=== PATIENT | male | born 1965 | race Hispanic/Latino ===

== ENCOUNTER 2017-10-24 04:34 | Emergency (ER) | payer MEDICAID ==
[2017-10-24 04:36] VITALS: BMI 25.0
[2017-10-24 04:44] VITALS: PULSE 80
--- NOTE | 2017-10-24 05:02 | C.PDOC ---
History Of Present Illness 51 year old male presents to the ER with a complaint of mid abdominal/umbilical pain and swelling to the lower extremities. Denies nausea or vomiting. Chief Complaint (Nursing): Abdominal Pain History Per: Patient History/Exam Limitations: no limitations Onset/Duration Of Symptoms: Hrs Current Symptoms Are (Timing): Still Present Location Of Pain/Discomfort: Other (Mid abdominal/umbilical) Radiation Of Pain To:: None Quality Of Discomfort: Unable To Describe Associated Symptoms: denies: Fever, Chills, Nausea, Vomiting Exacerbating Factors: None Alleviating Factors: None Recent travel outside of the [place]: No Past Medical History Reviewed: Historical Data, Nursing Documentation, Vital Signs Vital Signs: Last Vital Signs Temp 97.5 F L 10/24/17 04:41 Pulse 80 10/24/17 04:41 Resp 16 10/24/17 04:41 BP 136/98 H 10/24/17 04:41 Pulse Ox 96 10/24/17 05:07 - Medical History PMH: Asthma, COPD Surgical History: No Surg Hx - [facility] Procedures DETOXIFICATION SERVICES FOR SUBSTANCE ABUSE TREATMENT (03/10/16) Family History: States: Unknown Family Hx - Social History Hx Tobacco Use: Yes Hx Alcohol Use: No Hx Substance Use: Yes (cocaine,heroin) - Immunization History Hx Tetanus Toxoid Vaccination: No Hx Influenza Vaccination: No Hx Pneumococcal Vaccination: No Review Of Systems Constitutional: Negative for: Fever, Chills Gastrointestinal: Positive for: Abdominal Pain. Negative for: Nausea, Vomiting Musculoskeletal: Positive for: Other (Lower extremity swelling) Physical Exam - Physical Exam Appears: Non-toxic, No Acute Distress Skin: Normal Color, Warm, Dry Head: Atraumatic, Normacephalic Eye(s): bilateral: Normal Inspection Oral Mucosa: Moist Chest: Symmetrical, No Tenderness Cardiovascular: Rhythm Regular Respiratory: Normal Breath Sounds, No Rales, No Rhonchi, No Wheezing Gastrointestinal/Abdominal: Soft, Tenderness (Umbilical), No Guarding, No Rebound, Hernia (Umbilical, Reducible) Extremity: Pedal Edema (2+) Pulses: Left Dorsalis Pedis: Normal, Right Dorsalis Pedis: Normal Neurological/Psych: Oriented x3, Normal Speech ED Course And Treatment - Laboratory Results Result Diagrams: 10/24/17 05:15 10/24/17 05:15 O2 Sat by Pulse Oximetry: 96 (Room air) Pulse Ox Interpretation: Normal Progress Note: Blood work and urinalysis ordered. Toradol administered. Disposition Counseled Patient/Family Regarding: Diagnosis - Disposition Referrals: [facility] [Outside] Disposition: HOME/ ROUTINE Disposition Time: 05:33 Condition: STABLE Prescriptions: hydroCHLOROthiazide [Hydrodiuril] 25 mg PO DAILY #10 tab Instructions: Umbilical Hernia (ED) Forms: [facility] (Malaysian) - POA Present On Arrival: None - Clinical Impression Clinical Impression: Umbilical hernia without obstruction or gangrene - Scribe Statement The provider has reviewed the documentation as recorded by the Scribivory Stern All medical record entries made by the Kristaibivory were at my direction and personally dictated by me. I have reviewed the chart and agree that the record accurately reflects my personal performance of the history, physical exam, medical decision making, and the department course for this patient. I have also personally directed, reviewed, and agree with the discharge instructions and disposition.
[2017-10-24 05:18] LABS: BASO % 0.3 % (0.0-2.0); EOS # 0.1 K/uL (0.0-0.7); EOS % 1.7 % (0.0-4.0); HEMATOCRIT 41.6 % (35.0-51.0); LYMPH # 1.2 K/uL (1.0-4.3); LYMPH % 27.6 % (20.0-40.0); MEAN CELL VOLUME 83.4 fL (80.0-94.0); MEAN CORPUSCULAR HEMOGLOBIN 27.1 pg (27.0-31.0); MEAN CORPUSCULAR HGB CONC 32.5 g/dL (33.0-37.0); MEAN PLATELET VOLUME 7.3 fL (7.2-11.7); MONO # 0.3 K/uL (0.0-0.8); MONO % 7.9 % (0.0-10.0); NRBC % 0.1 % (0.0-2.0); WHITE BLOOD COUNT 4.3 K/uL (4.8-10.8)
[2017-10-24 05:31] LABS: ALB/GLOB RATIO 0.9 (1.0-2.1); ALKALINE PHOSPHATASE 97 U/L (38-126); ALT/SGPT 57 U/L (21-72); AST/SGOT 51 U/L (17-59); BILIRUBIN,TOTAL 1.4 mg/dL (0.2-1.3); BLOOD UREA NITROGEN 14 mg/dL (9-20); CALCIUM 8.1 mg/dl (8.6-10.4); CARBON DIOXIDE 31 mmol/L (22-30); CHLORIDE 99 mmol/L (98-107); GFR AFRICAN-AMERICAN > 60; GLUCOSE,RANDOM 103 mg/dL (75-110); SODIUM 136 mmol/L (132-148); TOTAL PROTEIN 7.7 g/dL (6.3-8.3)
[2017-10-24 05:33] LABS: RBC URINE 1 /hpf (0-3); URINE BILIRUBIN NEGATIVE (NEGATIVE); URINE BLOOD NEGATIVE (NEGATIVE); URINE COLOR Yellow (YELLOW); URINE GLUCOSE (UA) NORMAL (Normal); URINE KETONE NEGATIVE (NEGATIVE); URINE LEUKOCYTE ESTERASE NEG Leu/uL (Negative); URINE PROTEIN NEGATIVE (NEGATIVE); WBC URINE 1 /hpf (0-5)
[2017-10-24 05:45] VITALS: BP 134/82; RESP 18; TEMP 98.2; O2SAT 98
== END 2017-10-24 05:53 | disposition home or self-care (01) ==
LOC: C.ER 04:34
DX: K42.9 Umbilical hernia without obstruction or gangrene (principal); Z87.891 Personal history of nicotine dependence; J44.9 Chronic obstructive pulmonary disease, unspecified
CPT/HCPCS: 80053; 81001; 83690; 85025; 96374; 99284; J1885

== ENCOUNTER 2017-11-26 19:54 | Inpatient (IN) | payer MEDICAID ==
[2017-11-26 19:55] VITALS: BMI 25.0
[2017-11-26] MEDS ORDERED: Albuterol-Ipratrop 3 mg / 0.5 (3 ml) UD INH STA ×3 (20:00→21:34)
[2017-11-26] MEDS ORDERED: Albuterol-Ipratrop 3 mg / 0.5 (3 ml) UD ONE ×3 (20:06→22:19)
[2017-11-26] MEDS ORDERED: Sodium Chloride 0.9% 1,000 ML IV ONE (21:30)
--- NOTE | 2017-11-26 21:48 | C.PDOC ---
History Of Present Illness 52 year old male in mild respiratory distress with PMHx of asthma presents to the ED for evaluation of b/l lower extremity swelling/ spin and burning as well as sob / wheezing. Patient was recently treated for cellulitis twice; first with a course of cephalexin then on a visit to [facility] with a course of clindamycin. Patient reports today his asthma got worse and is also c/o SOB. Patient is a smoker for the past 30 years, he reports smoking 1 and a half pack a day. Patient denies fever, chills, nausea, vomit, diarrhea, abdominal pain, recent travel, sick contacts. Chief Complaint (Nursing): Shortness Of Breath History Per: Patient History/Exam Limitations: no limitations Onset/Duration Of Symptoms: Days Current Symptoms Are (Timing): Still Present Initiating Event: Upper Respiratory Illness Exacerbating Factor(s): Exertion Current Respiratory Medications: See Home Med List Severity: None Pain Scale Rating Of: 3 Associated Symptoms: Fever, Ankle/Leg Swelling Past Medical History Reviewed: Historical Data, Nursing Documentation, Vital Signs Vital Signs: Last Vital Signs Temp 98.2 F 11/27/17 23:12 Pulse 96 H 11/27/17 23:12 Resp 20 11/27/17 23:12 BP 131/69 11/27/17 23:12 Pulse Ox 96 11/27/17 23:12 - Medical History PMH: Asthma, COPD Denies: Diabetes, Hepatitis, HIV, HTN, Chronic Kidney Disease, Seizures, Sexually Transmitted Disease Surgical History: No Surg Hx - [facility] Procedures DETOXIFICATION SERVICES FOR SUBSTANCE ABUSE TREATMENT (03/10/16) Family History: States: Unknown Family Hx - Social History Hx Tobacco Use: Yes Hx Alcohol Use: No Hx Substance Use: Yes (cocaine,heroin) - Immunization History Hx Tetanus Toxoid Vaccination: No Hx Influenza Vaccination: No Hx Pneumococcal Vaccination: No Review Of Systems Constitutional: Negative for: Fever, Chills Eyes: Negative for: Pain ENT: Negative for: Ear Pain Cardiovascular: Negative for: Chest Pain, Palpitations Respiratory: Positive for: Shortness of Breath, Wheezing. Negative for: Cough Gastrointestinal: Negative for: Nausea, Vomiting, Abdominal Pain Genitourinary: Negative for: Dysuria, Hematuria Musculoskeletal: Positive for: Other (B/L lower extremity swelling) Skin: Negative for: Rash Neurological: Negative for: Weakness, Numbness Physical Exam - Physical Exam Appears: Non-toxic, In Acute Distress, Other (Mild respiratory distress) Skin: Normal Color, Warm, Dry Head: Atraumatic, Normacephalic Eye(s): bilateral: Normal Inspection Ear(s): Bilateral: Normal Nose: No Discharge, No Deformity Oral Mucosa: Moist Tongue: Normal Appearing Lips: Normal Appearing Teeth: Normal Dentition Throat: Normal, No Erythema, No Exudate Neck: Normal ROM, Supple Chest: Symmetrical Cardiovascular: Rhythm Regular, No Murmur Respiratory: No Rales, No Rhonchi, No Stridor, Wheezing Gastrointestinal/Abdominal: Soft, No Tenderness, No Guarding, No Rebound Extremity: Normal ROM, No Calf Tenderness, No Deformity, Swelling (B/L non pitting edema erythematous, warm ) Neurological/Psych: Oriented x3, Normal Speech, Normal Cognition ED Course And Treatment - Laboratory Results Result Diagrams: 11/27/17 07:42 11/27/17 07:42 ECG: Interpreted By Me, Viewed By Me ECG Rhythm: Sinus Rhythm ECG Interpretation: Normal Interpretation Of ECG: NSR 88 [place] 154, QRS 76, Qt 360, Qtc 435, no ischemic changes Rate From EC O2 Sat by Pulse Oximetry: 95 (on RA) Pulse Ox Interpretation: Normal - Radiology CXR: Interpreted by Me, Viewed By Me CXR Interpretation: Yes: Other (similar improvement 04/28/2016). No: No Acute Disease, Infiltrates, Cardiomegaly, Pnemothorax Medical Decision Making Medical Decision Making: Plan: * VBG * EKG * NSR 88 [place] 154, QRS 76, Qt 360, Qtc 435, no ischemic changes * Blood work * CXR * similar improvement 04/28/2016 * Duoneb 3 ml INH with improvement of wheezing * IV fluids * Nebulizer treatment * Peak flow * Influenza A B test * UA flu neg. elevtaed sed rate and cpr/. no elevation in wbc count. will cover with IV abx for recurrent cellulitis failed out patient oral therapy. Disposition Counseled Patient/Family Regarding: Diagnosis - Disposition Disposition: HOSPITALIZED Disposition Time: 01:39 Condition: STABLE - Clinical Impression Clinical Impression: Cellulitis, Asthma - Scribe Statement The provider has reviewed the documentation as recorded by the Scribe Og Oseguera All medical record entries made by the Scribe were at my direction and personally dictated by me. I have reviewed the chart and agree that the record accurately reflects my personal performance of the history, physical exam, medical decision making, and the department course for this patient. I have also personally directed, reviewed, and agree with the discharge instructions and disposition.
[2017-11-26 22:42] LABS: VENOUS BLOOD GAS BASE EXCESS 6.8 mmol/L (0.0-2.0); VENOUS BLOOD GAS PCO2 73 mmHg (40-60); VENOUS BLOOD GAS PO2 23 mm/Hg (30-55)
[2017-11-26 22:53] LABS: BASO % 1.3 % (0.0-2.0); EOS # 0.1 K/uL (0.0-0.7); EOS % 3.2 % (0.0-4.0); HEMOGLOBIN 13.2 g/dL (12.0-18.0); LYMPH # 0.8 K/uL (1.0-4.3); LYMPH % 24.6 % (20.0-40.0); MEAN CELL VOLUME 82.5 fL (80.0-94.0); MEAN CORPUSCULAR HEMOGLOBIN 27.5 pg (27.0-31.0); MEAN CORPUSCULAR HGB CONC 33.3 g/dL (33.0-37.0); MEAN PLATELET VOLUME 8.1 fL (7.2-11.7); MONO # 0.4 K/uL (0.0-0.8); MONO % 12.5 % (0.0-10.0); NEUT # 1.9 K/uL (1.8-7.0); NEUT % 58.4 % (50.0-75.0); NRBC % 0.1 % (0.0-2.0); RBC 4.8 Mil/uL (4.40-5.90); RED CELL DISTRIBUTION WIDTH 14.9 % (11.5-14.5); WHITE BLOOD COUNT 3.3 K/uL (4.8-10.8)
[2017-11-26 23:06] LABS: URINE BILIRUBIN SMALL (NEGATIVE); URINE BLOOD NEGATIVE (NEGATIVE); URINE CLARITY SL HAZY (Clear); URINE COLOR YELLOW (YELLOW); URINE GLUCOSE (UA) NEGATIVE (Normal); URINE LEUKOCYTE ESTERASE NEGATIVE Leu/uL (Negative); URINE NITRATE NEGATIVE (NEGATIVE); URINE PROTEIN TRACE mg/dL (NEGATIVE)
[2017-11-26 23:17] LABS: ALBUMIN 3.8 g/dL (3.5-5.0); ALT/SGPT 43 U/L (21-72); AST/SGOT 41 U/L (17-59); BLOOD UREA NITROGEN 10 mg/dL (9-20); CALCIUM 8.2 mg/dl (8.6-10.4); GFR AFRICAN-AMERICAN > 60; GFR NON-AFRICAN AMERICAN > 60
[2017-11-26 23:20] LABS: ALB/GLOB RATIO 0.8 (1.0-2.1)
[2017-11-27] MEDS: MethylPREDNISolone 40 mg Vial IV SCH ×4 (02:54→21:16)
--- NOTE | 2017-11-27 02:56 | CP.PCM.HP ---
<Ezio Pedraza - Last Filed: 11/27/17 05:24> History of Present Illness - History of Present Illness History of Present Illness: PGY-1 H&P for Dr. Sales CC: leg swelling This is a 52 year old male with PMHx Asthma who presents complaining of bilateral leg swelling. This has been ongoing for about 2 months now. He has seen his PMD Dr. Srinivasan who prescribed Keflex. Patient noted initial improvements but then it returned to how it started. Patient then sought treatment at [facility] where he was given Clindamycin and Lasix. Patient also noted improvement with this therapy before returning back to baseline. It is associated with sharp, stabbing pain around the malleoli and the dorsum of the feet bilaterally. Patient states that walking exacerbates his symptoms and elevating his legs provides some relief. Patient also complaining of shortness of breath, but states that he is chronically dyspneic at baseline. Patient uses his albuterol inhaler 4-5 times daily. 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 PMHx: Asthma PSHx: Denies Allergies: NKDA Social: Current smoker since age 14. Currently smokes 6 cigarettes daily but used to smoke 1-1.5 ppd. 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 Family Hx: Father with DM. Mother with Asthma PMD: Dr. Elmer Srinivasan Home meds: Albuterol inhaler, Singulair 10 mg daily, Spiriva 18 mcg daily Present on Admission - Present on Admission Any Indicators Present on Admission: No Review of Systems - Constitutional Constitutional: absent: Chills, Fever - EENT Eyes: absent: Change in Vision Ears: absent: Decreased Hearing Nose/Mouth/Throat: absent: Nasal Congestion - Cardiovascular Cardiovascular: absent: Chest Pain - Respiratory Respiratory: Dyspnea (chronic at baseline), Wheezing. absent: Cough - Gastrointestinal Gastrointestinal: absent: Abdominal Pain, Constipation, Diarrhea, Nausea, Vomiting - Genitourinary Genitourinary: absent: Dysuria - Musculoskeletal Musculoskeletal: absent: Back Pain - Integumentary Integumentary: Skin Pain, Swelling - Neurological Neurological: absent: Dizziness, Weakness - Psychiatric Psychiatric: Anxiety - Endocrine Endocrine: absent: Fatigue, Palpitations Past Patient History - Infectious Disease Hx of Infectious Diseases: None - Past Medical History & Family History Past Medical History?: Yes - Past Social History Smoking Status: Light Smoker < 10 Cigarettes Daily - CARDIAC Hx Hypertension: No - PULMONARY Hx Asthma: Yes Hx Chronic Obstructive Pulmonary Disease (COPD): Yes - NEUROLOGICAL Hx Seizures: No - HEENT Hx HEENT Problems: No Other/Comment: glasses,Farsighted - RENAL Hx Chronic Kidney Disease: No - ENDOCRINE/METABOLIC Hx Endocrine Disorders: No - HEMATOLOGICAL/ONCOLOGICAL Hx Human Immunodeficiency Virus (HIV): No - INTEGUMENTARY Hx Dermatological Problems: No - MUSCULOSKELETAL/RHEUMATOLOGICAL Hx Falls: No - GASTROINTESTINAL Hx Gastrointestinal Disorders: No Other/Comment: Umbilical Hernia - GENITOURINARY/GYNECOLOGICAL Hx Sexually Transmitted Disorders: No - PSYCHIATRIC Hx Substance Use: Yes (cocaine,heroin) - SURGICAL HISTORY Hx Surgeries: No - ANESTHESIA Hx Anesthesia: No Hx Anesthesia Reactions: No Hx Malignant Hyperthermia: No Meds Allergies/Adverse Reactions: Allergies Allergy/AdvReac Type Severity Reaction Status Date / Time No Known Allergies Allergy Verified 11/26/17 21:06 Physical Exam - Constitutional Appears: No Acute Distress - Head Exam Head Exam: ATRAUMATIC, NORMOCEPHALIC - Eye Exam Eye Exam: EOMI, PERRL - ENT Exam ENT Exam: Mucous Membranes Moist - Respiratory Exam Respiratory Exam: Wheezes (bilaterally). absent: Rales, Rhonchi Additional comments: Peak flow at bedside: 130 - Cardiovascular Exam Cardiovascular Exam: REGULAR RHYTHM, +S1, +S2. absent: Diastolic murmur, Systolic Murmur - GI/Abdominal Exam GI & Abdominal Exam: Hernia (reducible umbilical hernia), Normal Bowel Sounds, Soft. absent: Tenderness - Extremities Exam Extremities exam: Positive for: pedal edema (bilateral pitting). Negative for: tenderness Additional comments: Difficult to ascertain pedal pulses, but the lower extremities were warm to the touch bilaterally. It has the appearance of early stages of venous stasis dermatitis. - Neurological Exam Neurological exam: Alert, CN II-XII Intact, Oriented x3 - Psychiatric Exam Psychiatric exam: Normal Affect, Normal Mood - Skin Skin Exam: Dry, Intact, Warm Results - Vital Signs Recent Vital Signs: Last Vital Signs Temp 98 F 11/26/17 20:39 Pulse 102 H 11/26/17 20:39 Resp 24 11/26/17 20:39 BP 150/104 H 11/26/17 20:39 Pulse Ox 95 01/04/18 01:47 - Labs Result Diagrams: 11/26/17 22:47 11/26/17 22:47 Labs: Laboratory Results - last 24 hr 11/26/17 11/26/17 11/26/17 22:35 22:44 22:47 WBC 3.3 L RBC 4.80 Hgb 13.2 Hct 39.6 MCV 82.5 MCH 27.5 MCHC 33.3 RDW 14.9 H Plt Count 204 MPV 8.1 Neut % (Auto) 58.4 Lymph % (Auto) 24.6 [place] % (Auto) 12.5 H Eos % (Auto) 3.2 Baso % (Auto) 1.3 Neut # 1.9 Lymph # 0.8 L [place] # 0.4 Eos # 0.1 Baso # 0.0 ESR 33 H Puncture Site Vein pO2 23 L Az Test Na VBG pH 7.30 L VBG pCO2 73 H* VBG HCO3 28.5 VBG O2 Sat (Calc) 45.1 VBG Base Excess 6.8 H Crit Value Called To Ms. talbotrn/er Crit Value Called By Sabra,morteza Crit Value Read Back Y Blood Gas Notified Time 2240 Sodium Potassium Chloride Carbon Dioxide Anion Gap BUN Creatinine Est GFR ( Amer) Est GFR (Non-Af Amer) Random Glucose Calcium Total Bilirubin AST ALT Alkaline Phosphatase Troponin I C-React Prot High Sens Total Protein Albumin Globulin Albumin/Globulin Ratio Urine Color Urine Clarity Urine pH Ur Specific [place] Urine Protein Urine Glucose (UA) Urine Ketones Urine Blood Urine Nitrate Urine Bilirubin Urine Urobilinogen Ur Leukocyte Esterase Urine WBC (Auto) Urine RBC (Auto) Influenza Typ A,B (EIA) Negative for flu a/b 11/26/17 11/26/17 11/26/17 22:47 22:47 22:47 WBC RBC Hgb Hct MCV MCH MCHC RDW Plt Count MPV Neut % (Auto) Lymph % (Auto) [place] % (Auto) Eos % (Auto) Baso % (Auto) Neut # Lymph # [place] # Eos # Baso # ESR Puncture Site pO2 Az Test VBG pH VBG pCO2 VBG HCO3 VBG O2 Sat (Calc) VBG Base Excess Crit Value Called To Crit Value Called By Crit Value Read Back Blood Gas Notified Time Sodium 136 Potassium 4.3 Chloride 96 L Carbon Dioxide 33 H Anion Gap 12 BUN 10 Creatinine 0.8 Est GFR ( Amer) > 60 Est GFR (Non-Af Amer) > 60 Random Glucose 116 H Calcium 8.2 L Total Bilirubin 0.7 AST 41 ALT 43 Alkaline Phosphatase 93 Troponin I < 0.0120 C-React Prot High Sens 4.51 H Total Protein 8.4 H Albumin 3.8 Globulin 4.5 H Albumin/Globulin Ratio 0.8 L Urine Color Yellow Urine Clarity Sl hazy Urine pH 6.0 Ur Specific [place] 1.030 Urine Protein Trace Urine Glucose (UA) Negative Urine Ketones Negative Urine Blood Negative Urine Nitrate Negative Urine Bilirubin Small Urine Urobilinogen 2.0 Ur Leukocyte Esterase Negative Urine WBC (Auto) 4 Urine RBC (Auto) 2 Influenza Typ A,B (EIA) Assessment & Plan - Assessment and Plan (Free Text) Plan: Leg Swelling Failed outpatient treatment with Keflex, Clindamycin, and Lasix Likely venous stasis dermatitis Unlikely cellulitis but will rule it out ID consult vel Beck appreciated ED started Doxycycline 100 IV. We will continue it Q12 for now. f/u venous duplex to assess for valvular incompetence vs DVT History of poorly controlled Asthma with likely underlying COPD Patient is short of breath at baseline. Poorly controlled as evidenced by the repetitive use of Albuterol. Given long smoking history, there is likely some superimposed COPD. continued home Singulair 10 mg daily continued home Spiriva 18 mcg daily started Duonebs Q6 RJ started solumedrol 60 mg Q6 Prophylactic Measure Heparin 5000 units SC Q8 Protonix 40 mg PO daily Heart Healthy Diet Case DW Dr. Mónica Pedraza PGY-1 <Krishna Sales - Last Filed: 11/27/17 06:34> Results - Vital Signs Recent Vital Signs: Last Vital Signs Temp 98.3 F 11/27/17 03:53 Pulse 98 H 11/27/17 03:53 Resp 20 11/27/17 03:53 BP 146/97 H 11/27/17 04:00 Pulse Ox 96 11/27/17 03:53 - Labs Result Diagrams: 11/26/17 22:47 11/26/17 22:47 Labs: Laboratory Results - last 24 hr 11/26/17 11/26/17 11/26/17 22:35 22:44 22:47 WBC 3.3 L RBC 4.80 Hgb 13.2 Hct 39.6 MCV 82.5 MCH 27.5 MCHC 33.3 RDW 14.9 H Plt Count 204 MPV 8.1 Neut % (Auto) 58.4 Lymph % (Auto) 24.6 [place] % (Auto) 12.5 H Eos % (Auto) 3.2 Baso % (Auto) 1.3 Neut # 1.9 Lymph # 0.8 L [place] # 0.4 Eos # 0.1 Baso # 0.0 ESR 33 H Puncture Site Vein pO2 23 L Az Test Na VBG pH 7.30 L VBG pCO2 73 H* VBG HCO3 28.5 VBG O2 Sat (Calc) 45.1 VBG Base Excess 6.8 H Crit Value Called To Ms. talbotrn/er Crit Value Called By morteza Montaño Crit Value Read Back Y Blood Gas Notified Time 2240 Sodium Potassium Chloride Carbon Dioxide Anion Gap BUN Creatinine Est GFR ( Amer) Est GFR (Non-Af Amer) Random Glucose Calcium Total Bilirubin AST ALT Alkaline Phosphatase Troponin I C-React Prot High Sens Total Protein Albumin Globulin Albumin/Globulin Ratio Urine Color Urine Clarity Urine pH Ur Specific [place] Urine Protein Urine Glucose (UA) Urine Ketones Urine Blood Urine Nitrate Urine Bilirubin Urine Urobilinogen Ur Leukocyte Esterase Urine WBC (Auto) Urine RBC (Auto) Influenza Typ A,B (EIA) Negative for flu a/b 11/26/17 11/26/17 11/26/17 22:47 22:47 22:47 WBC RBC Hgb Hct MCV MCH MCHC RDW Plt Count MPV Neut % (Auto) Lymph % (Auto) [place] % (Auto) Eos % (Auto) Baso % (Auto) Neut # Lymph # [place] # Eos # Baso # ESR Puncture Site pO2 Az Test VBG pH VBG pCO2 VBG HCO3 VBG O2 Sat (Calc) VBG Base Excess Crit Value Called To Crit Value Called By Crit Value Read Back Blood Gas Notified Time Sodium 136 Potassium 4.3 Chloride 96 L Carbon Dioxide 33 H Anion Gap 12 BUN 10 Creatinine 0.8 Est GFR ( Amer) > 60 Est GFR (Non-Af Amer) > 60 Random Glucose 116 H Calcium 8.2 L Total Bilirubin 0.7 AST 41 ALT 43 Alkaline Phosphatase 93 Troponin I < 0.0120 C-React Prot High Sens 4.51 H Total Protein 8.4 H Albumin 3.8 Globulin 4.5 H Albumin/Globulin Ratio 0.8 L Urine Color Yellow Urine Clarity Sl hazy Urine pH 6.0 Ur Specific [place] 1.030 Urine Protein Trace Urine Glucose (UA) Negative Urine Ketones Negative Urine Blood Negative Urine Nitrate Negative Urine Bilirubin Small Urine Urobilinogen 2.0 Ur Leukocyte Esterase Negative Urine WBC (Auto) 4 Urine RBC (Auto) 2 Influenza Typ A,B (EIA) Assessment & Plan - Date & Time Date: 11/27/17 (I have seen and examined the patient. I agree with the findings and plan of care as documented by Dr. Pedraza. Patient with continued lower extremity cellulitis for which he has been treated for twice as an outpatient but has not entirely been successful. Doxycycline given in ED. Continue for now. Consult to ID. Evaluate for venous insufficiency. Also with COPD exacerbation. Recommend smoking cessation. Duonebs and solumedrol. Continue home meds. Monitor for acute changes.) Time: 06:30 Attending/Attestation - Attestation I have personally seen and examined this patient.: Yes I have fully participated in the care of the patient.: Yes I have reviewed all pertinent clinical information: Yes
[2017-11-27] MEDS: Albuterol-Ipratrop 3 mg / 0.5 (3 ml) UD INH SCH ×3 (07:46→19:38)
[2017-11-27] MEDS: Tiotropium 18 mcg Cap For Inhalation INH SCH (07:46)
[2017-11-27 07:48] LABS: BASO % 0.7 % (0.0-2.0); EOS % 0.4 % (0.0-4.0); HEMOGLOBIN 12.8 g/dL (12.0-18.0); LYMPH # 0.5 K/uL (1.0-4.3); LYMPH % 16.6 % (20.0-40.0); MEAN CELL VOLUME 82.7 fL (80.0-94.0); MEAN CORPUSCULAR HEMOGLOBIN 27.4 pg (27.0-31.0); MEAN CORPUSCULAR HGB CONC 33.2 g/dL (33.0-37.0); MONO # 0.1 K/uL (0.0-0.8); MONO % 2.7 % (0.0-10.0); NEUT # 2.2 K/uL (1.8-7.0); NEUT % 79.6 % (50.0-75.0); RBC 4.65 Mil/uL (4.40-5.90); RED CELL DISTRIBUTION WIDTH 14.6 % (11.5-14.5); WHITE BLOOD COUNT 2.8 K/uL (4.8-10.8)
[2017-11-27 08:38] LABS: ALB/GLOB RATIO 0.8 (1.0-2.1); ALBUMIN 3.5 g/dL (3.5-5.0); ALT/SGPT 38 U/L (21-72); AST/SGOT 39 U/L (17-59); BLOOD UREA NITROGEN 8 mg/dL (9-20); GFR AFRICAN-AMERICAN > 60; GFR NON-AFRICAN AMERICAN > 60
--- NOTE | 2017-11-27 08:52 | RAD ---
HISTORY: SOB COMPARISON: 05/18/2016 TECHNIQUE: Chest PA and lateral FINDINGS: LUNGS: No active pulmonary disease. PLEURA: No significant pleural effusion identified. No pneumothorax apparent. CARDIOVASCULAR: Normal. OSSEOUS STRUCTURES: No significant abnormalities. VISUALIZED UPPER ABDOMEN: Normal. OTHER FINDINGS: None. IMPRESSION: No active disease.
[2017-11-27 09:13] LABS: HEPATITIS B SURFACE AG NEGATIVE (NEGATIVE)
[2017-11-27] MEDS: Pantoprazole 40 mg EC Tab PO SCH (09:14)
[2017-11-27 09:19] LABS: HEPATITIS A IGM NEGATIVE (NEGATIVE); HEPATITIS B CORE AB Negative (NEGATIVE)
[2017-11-27] MEDS ORDERED: Fluticasone-Salmeterol 250-50mcg Diskus IH SCH (10:00)
[2017-11-27] MEDS: Piperacill/Tazo 3.375gm in Dex 3.375 GM/50 ML BAG IVPB SCH ×3 (11:17→22:50)
[2017-11-27] MEDS: Vancomycin 1 gm/NS 200 ml 1 GM/200 ML BAG IVPB SCH ×2 (11:18→22:51)
[2017-11-27 12:08] LABS: HEPATITIS C ANTIBODY REACTIVE (NEGATIVE)
--- NOTE | 2017-11-27 13:07 | VASCLAB ---
PROCEDURE: Lower Extremity Venous Duplex Exam. HISTORY: check for venous insufficiency PRIORS: None. TECHNIQUE: Bilateral common femoral, femoral, popliteal and posterior tibial, peroneal and great saphenous veins were evaluated. Flow was assessed with color Doppler, compressibility, assessment of phasic flow and augmentation response. Report prepared by Everett Allen, TONI, RVT FINDINGS: RIGHT: 1. Common Femoral Vein: 1.1. Compressibility - Fully compressible: Thrombus - None : Flow - Phasic: Augmentation -Normal: Reflux - None. 2. Femoral Vein: 2.1. Compressibility - Fully compressible: Thrombus - None : Flow - Phasic: Augmentation -Normal: Reflux - None. 3. Popliteal Vein: 3.1. Compressibility - Fully compressible: Thrombus - None : Flow - Phasic: Augmentation -Normal: Reflux - None. 4. Posterior Tibial Vein: 4.1. Compressibility - Fully compressible: Thrombus - None: Flow - Phasic: Augmentation -Normal: Reflux - None. 5. Peroneal Vein: 5.1. Compressibility - Fully compressible: Thrombus - None: Flow - Phasic: Augmentation -Normal: Reflux - None. 6. Great Saphenous Vein: 6.1. Compressibility - Fully compressible: Thrombus - None: Flow - Phasic: Augmentation - Normal: Reflux - None. LEFT: 1. Common Femoral Vein: 1.1. Compressibility - Fully compressible: Thrombus - None: Flow - Phasic: Augmentation -Normal: Reflux - None. 2. Femoral Vein: 2.1. Compressibility - Fully compressible: Thrombus - None: Flow - Phasic: Augmentation -Normal: Reflux - None. 3. Popliteal Vein: 3.1. Compressibility - Fully compressible: Thrombus - None : Flow - Phasic: Augmentation -Normal: Reflux - None. 4. Posterior Tibial Vein: 4.1. Compressibility - Fully compressible: Thrombus - None: Flow - Phasic: Augmentation -Normal: Reflux - None. 5. Peroneal Vein: 5.1. Compressibility - Fully compressible: Thrombus - None: Flow - Phasic: Augmentation -Normal: Reflux - None. 6. Great Saphenous Vein: 6.1. Compressibility - Fully compressible: Thrombus - None: Flow - Phasic: Augmentation - Normal: Reflux - None. OTHER FINDINGS: Right: None significant. Left: None significant. IMPRESSION: Right: No evidence of deep or superficial vein thrombosis of the right lower extremity. Normal valve function noted of the right side. Left: No evidence of deep or superficial vein thrombosis of the left lower extremity. Normal valve function noted of the left side.
--- NOTE | 2017-11-27 13:26 | CP.PCM.PN ---
<Karol Crenshaw - Last Filed: 11/27/17 13:23> Subjective - Date & Time of Evaluation Date of Evaluation: 11/27/17 Time of Evaluation: 07:00 - Subjective Subjective: PGY1-Medicine Note, Dr. Torres's Service Pt was S&E at bedside, no new complaints today. He states that he is not having LE pain, but that the swelling and redness has not changed as compared to yesterday. He states that his breathing has improved since last night's treatment. When patient walked to en suite bathroom and back, he felt short of breath but recovered by sitting quietly for a few minutes. He also states that he usually sleeps with 3 pillows at home and is requesting an addition pillow in the hospital. Of note, patient states that a few weeks ago, he accidentally hit his eye against a sink and has had visual changes since. He describes the visual changes as "blurry". 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 Patient denies chest pain, abdominal pain, nausea, vomiting, constipation, or diarrhea. Objective - Vital Signs/Intake and Output Vital Signs (last 24 hours): Temp Pulse Resp BP Pulse Ox 98.1 F 86 20 163/100 H 95 11/27/17 07:35 11/27/17 07:35 11/27/17 07:35 11/27/17 07:35 11/27/17 07:35 Intake and Output: 11/27/17 11/27/17 06:59 18:59 Intake Total 110 Balance 110 - Medications Medications: Current Medications Albuterol/Ipratropium (Duoneb 3 Mg/0.5 Mg (3 Ml) Ud) 3 ml INH RQ6 RJ Last Admin: 11/27/17 07:46 Dose: 3 ml Heparin Sodium (Porcine) (Heparin) 5,000 units SC Q8 RJ Last Admin: 11/27/17 05:26 Dose: 5,000 units Piperacillin Sod/Tazobactam Sod (Zosyn 3.375 Gm Iv Premix) 3.375 gm in 50 mls @ 200 mls/hr IVPB Q6H RJ Last Admin: 11/27/17 11:17 Dose: 200 mls/hr Vancomycin/Sodium Chloride (Vancomycin 1 Gm/Ns 200 Ml) 1 gm in 200 mls @ 133.333 mls/hr IVPB Q12H [facility] Stop: 12/02/17 11:01 Last Admin: 11/27/17 11:18 Dose: 133.333 mls/hr Lisinopril (Zestril) 5 mg PO DAILY [facility] Methylprednisolone (Solu-Medrol) 60 mg IV Q6H [facility] Last Admin: 11/27/17 08:46 Dose: 60 mg Montelukast Sodium (Singulair) 10 mg PO HS [facility] Pantoprazole Sodium (Protonix Ec Tab) 40 mg PO DAILY [facility] Last Admin: 11/27/17 09:14 Dose: 40 mg Tiotropium [place] (Spiriva) 18 mcg INH RQ24 [facility] Last Admin: 11/27/17 07:46 Dose: 18 mcg - Labs Labs: 11/27/17 07:42 11/27/17 07:42 - Constitutional Appears: Non-toxic, No Acute Distress - Head Exam Head Exam: ATRAUMATIC, NORMAL INSPECTION, NORMOCEPHALIC - Eye Exam Eye Exam: EOMI Additional comments: left eye corneal clouding on medial side - ENT Exam ENT Exam: Mucous Membranes Moist - Respiratory Exam Respiratory Exam: Clear to Ausculation Bilateral, NORMAL BREATHING PATTERN - Cardiovascular Exam Cardiovascular Exam: REGULAR RHYTHM, +S1, +S2 - GI/Abdominal Exam GI & Abdominal Exam: Soft, Normal Bowel Sounds. absent: Tenderness - Extremities Exam Extremities Exam: Pedal Edema Additional comments: b/l LE edema and erythema below the knee - Neurological Exam Neurological Exam: Alert, Awake, Oriented x3 - Psychiatric Exam Psychiatric exam: Normal Affect, Normal Mood - Skin Skin Exam: Erythema, Intact, Warm Assessment and Plan - Assessment and Plan (Free Text) Assessment: Leg Swelling venous stasis dermatitis v cellulitis Failed outpatient treatment with Keflex, Clindamycin, and Lasix ID consult Dr. Clark, help appreciated Doxycycline 100 IV given in ED ID started Vanco 1gm q12h and Zosyn 3.375gm q6h on 11/27/17 venous duplex negative for DVT and normal valve function b/l History of poorly controlled Asthma with likely underlying COPD Patient is short of breath at baseline. Poorly controlled as evidenced by the repetitive use of Albuterol. Given long smoking history, there is likely some superimposed COPD. continued home Singulair 10 mg daily continued home Spiriva 18 mcg daily started Koribs Q6 RJ started solumedrol 60 mg Q6 HTN started Lisinopril 5mg daily continue to monitor Hx IV drug abuse Hep C reactive f/u HIV Left Eye Injury patient to follow up with ophtho as an outpatient Prophylactic Measure Heparin 5000 units SC Q8 Protonix 40 mg PO daily Heart Healthy Diet <RockyLane vidalchristianomorales - Last Filed: 11/27/17 15:44> Objective - Vital Signs/Intake and Output Vital Signs (last 24 hours): Temp Pulse Resp BP Pulse Ox 98.1 F 86 20 125/78 95 11/27/17 07:35 11/27/17 07:35 11/27/17 07:35 11/27/17 13:49 11/27/17 07:35 Intake and Output: 11/27/17 11/27/17 06:59 18:59 Intake Total 110 250 Balance 110 250 - Medications Medications: Current Medications Albuterol/Ipratropium (Duoneb 3 Mg/0.5 Mg (3 Ml) Ud) 3 ml INH RQ6 [facility] Last Admin: 11/27/17 13:48 Dose: 3 ml Heparin Sodium (Porcine) (Heparin) 5,000 units SC Q8 [facility] Last Admin: 11/27/17 13:48 Dose: 5,000 units Piperacillin Sod/Tazobactam Sod (Zosyn 3.375 Gm Iv Premix) 3.375 gm in 50 mls @ 200 mls/hr IVPB Q6H [facility] Last Admin: 11/27/17 11:17 Dose: 200 mls/hr Vancomycin/Sodium Chloride (Vancomycin 1 Gm/Ns 200 Ml) 1 gm in 200 mls @ 133.333 mls/hr IVPB Q12H [facility] Stop: 12/02/17 11:01 Last Admin: 11/27/17 11:18 Dose: 133.333 mls/hr Lisinopril (Zestril) 5 mg PO DAILY [facility] Last Admin: 11/27/17 13:48 Dose: 5 mg Methylprednisolone (Solu-Medrol) 60 mg IV Q6H [facility] Last Admin: 11/27/17 13:46 Dose: 60 mg Montelukast Sodium (Singulair) 10 mg PO HS [facility] Pantoprazole Sodium (Protonix Ec Tab) 40 mg PO DAILY [facility] Last Admin: 11/27/17 09:14 Dose: 40 mg Tiotropium [place] (Spiriva) 18 mcg INH RQ24 [facility] Last Admin: 11/27/17 07:46 Dose: 18 mcg - Labs Labs: 11/27/17 07:42 11/27/17 07:42 Attending/Attestation - Attestation I have personally seen and examined this patient.: Yes I have fully participated in the care of the patient.: Yes I have reviewed all pertinent clinical information, including history, physical exam and plan: Yes Notes (Text): Patient was seen and examined Discussed with the resident I agree with the documentation of the assessment and the plan 11/27/17 15:44
[2017-11-27 21:44] LABS: BARBITURATES, UR NEGATIVE (NEGATIVE); BENZODIAZEPINES, UR NEGATIVE (NEGATIVE); PHENCYCLIDINE, UR NEGATIVE (NEGATIVE)
[2017-11-27 21:48] LABS: OPIATES, UR POSITIVE (NEGATIVE)
[2017-11-28] MEDS: Albuterol-Ipratrop 3 mg / 0.5 (3 ml) UD INH SCH ×4 (02:22→22:35)
[2017-11-28] MEDS: MethylPREDNISolone 40 mg Vial IV SCH ×4 (02:30→22:02)
[2017-11-28] MEDS: Piperacill/Tazo 3.375gm in Dex 3.375 GM/50 ML BAG IVPB SCH ×4 (05:17→22:04)
[2017-11-28 07:39] LABS: BASO % 0.1 % (0.0-2.0); HEMOGLOBIN 12.1 g/dL (12.0-18.0); LYMPH # 0.6 K/uL (1.0-4.3); LYMPH % 6.7 % (20.0-40.0); MEAN CELL VOLUME 82.4 fL (80.0-94.0); MEAN PLATELET VOLUME 8.7 fL (7.2-11.7); MONO # 0.1 K/uL (0.0-0.8); MONO % 1.8 % (0.0-10.0); NEUT # 7.7 K/uL (1.8-7.0); NEUT % 91.4 % (50.0-75.0); PLATELET COUNT 164 K/uL (130-400); RBC 4.33 Mil/uL (4.40-5.90); RED CELL DISTRIBUTION WIDTH 14.7 % (11.5-14.5)
[2017-11-28 07:49] LABS: WHITE BLOOD COUNT 8.4 K/uL (4.8-10.8)
[2017-11-28] MEDS: Tiotropium 18 mcg Cap For Inhalation INH SCH (08:29)
[2017-11-28 08:45] LABS: ALB/GLOB RATIO 0.9 (1.0-2.1); ALBUMIN 3.3 g/dL (3.5-5.0); ALT/SGPT 28 U/L (21-72); AST/SGOT 21 U/L (17-59); BLOOD UREA NITROGEN 11 mg/dL (9-20); CALCIUM 7.8 mg/dl (8.6-10.4); GFR AFRICAN-AMERICAN > 60; GFR NON-AFRICAN AMERICAN > 60; MAGNESIUM 1.8 mg/dL (1.6-2.3)
[2017-11-28 09:30] LABS: BANDS 6 % (0-2); LYMPHOCYTE 8 % (20-40); MONOCYTE 2 % (0-10); NEUTROPHIL 84 % (50-75); PLATELET ESTIMATE NORMAL (NORMAL); TOTAL CELLS COUNTED 100
[2017-11-28] MEDS: Pantoprazole 40 mg EC Tab PO SCH (09:31)
[2017-11-28] MEDS: Vancomycin 1 gm/NS 200 ml 1 GM/200 ML BAG IVPB SCH (10:55)
--- NOTE | 2017-11-28 12:17 | PCM.PSYCH ---
Initial Psychiatric Evaluation - Initial Psychiatric Evaluation Type of Admission: Voluntary Legal Status: Capacity Chief Complaint (in patient's own words): "Heroin" History of Present Illness and Precipitating Events: Consultation was requested for his opioid use This is a 52-year-old male, living with his mother, unemployed, . He is well-known to the auto service writer from his detox admissions. The patient admits to relapsing quickly and has been using heroin about 15 bags a day intravenously. He says his last use was before he came and he reported withdrawal symptoms - for which methadone 20 mg started last night after auto service writer spoke to the resident. He denies all other drug use but cocaine: "on and off" also iv Smokes 1/2 ppd Somewhat depressed but not suicidal, psychotic or manic Past psych history: No admissions and no suicide attempts. He use gabapentin and trazodone Medical history: Asthma and COPD, inguinal hernia Family psych history: Substance abuse Current Medications: Active Medications Generic Name Dose Route Start Last Admin Trade Name Freq PRN Reason Stop Dose Admin Albuterol/Ipratropium 3 ml 11/27/17 08:00 11/28/17 08:29 Duoneb 3 Mg/0.5 Mg (3 Ml) Ud INH 3 ml RQ6 RJ Administration Heparin Sodium (Porcine) 5,000 units 11/27/17 06:00 11/28/17 07:00 Heparin SC 5,000 units Q8 RJ Administration Piperacillin Sod/Tazobactam Sod 3.375 gm in 50 mls @ 200 mls/hr 11/27/17 11: 00 11/28/17 10:19 Zosyn 3.375 Gm Iv Premix IVPB 200 mls/hr Q6H RJ Administration Vancomycin/Sodium Chloride 1 gm in 200 mls @ 133.333 mls/hr 11/27/17 11:00 10:55 Vancomycin 1 Gm/Ns 200 Ml IVPB 12/02/17 11:01 133.333 mls/hr Q12H RJ Administration Lisinopril 5 mg 11/27/17 11:45 11/28/17 09:31 Zestril PO 5 mg DAILY RJ Administration Lorazepam 0.5 mg 11/27/17 18:29 Ativan IVP Q3H PRN Agitation Methadone HCl 0 mg 11/29/17 09:00 Methadone PO 12/02/17 08:59 Q24H RJ Taper Methylprednisolone 60 mg 11/27/17 02:30 11/28/17 08:35 Solu-Medrol IV 60 mg Q6H RJ Administration Montelukast Sodium 10 mg 11/27/17 22:00 11/27/17 21:16 Singulair PO 10 mg HS RJ Administration Pantoprazole Sodium 40 mg 11/27/17 10:00 11/28/17 09:31 Protonix Ec Tab PO 40 mg DAILY RJ Administration Tiotropium [place] 18 mcg 11/27/17 08:00 11/28/17 08:29 Spiriva INH 18 mcg RQ24 RJ Administration Trazodone HCl 100 mg 11/27/17 18:29 Desyrel PO HS PRN Insomnia Past Psychiatric History - Past Psychiatric History Previous Treatment History: Intensive Outpatient Pertinent Medical Hx (Current Medical&Sleep Prob, Allergies): Allergies Allergy/AdvReac Type Severity Reaction Status Date / Time No Known Allergies Allergy Verified 11/26/17 21:06 Albuterol Sulfate [Proventil Hfa] 0.09 mg IH Q4 PRN #1 ml 10/31/15 Fluticasone/Salmeterol 250/50 [Advair Diskus 250/50] 1 puff IH BID #1 puff 10/31 Review of Systems - Neurological Neurological: UNREMARKABLE - Psychiatric Psychiatric: Abnormal Sleep Pattern, Anxiety, Depression, Irritability. absent : Hallucinations, Homicidal Ideation, Suicidal Ideation Mental Status Examination - Personal Presentation Personal Presentation: Looks older than stated age - Affect Affect: Constricted - Motor Activity Motor Activity: Calm - Reliability in Providing Information Reliability in Providing Information: Good - Speech Speech: Organized - Mood Mood: Depressed, Anxious - Formal Thought Process Formal Thought Process: No Impairment - Cognitive Functions Orientation: Person, Place, Situation, Time Sensorium: Alert Attention/Concentration: Attentive Estimate of Intelligence: Average Judgement: Intact, as evidence by: Insight regarding need for hospitalization Memory: Recent intact, as evidence by: Ability to recall events of the day, Remote intact, as evidenced by: Abilit to recall sig. life events - Risk Risk: Diminished functioning - Strength & Assets Inventory Strength & Assets Inventory: Family support, Cooperative - Limitations Limitations: Other DSM 5 DX - DSM 5 DSM 5 Diagnosis: Opioid withdrawal Opioid use d/o - severe Cocaine use d/o - moderate Depressive d/o - unspecified - Recommended/Plan of Treatment Treatment Recommendations and Plan of Treatment: Methadone detox Support and psychoed Gabapentin for anxiety Trazodone for insomnia NE and CBt Refer to rehab If he is cleared today or tomorrow we can take him to detox (call on-call psych MD first) but not on Friday as he will have one dose left by then. 31 min
--- NOTE | 2017-11-28 14:21 | CP.PCM.PN ---
<Karol Crenshaw - Last Filed: 11/28/17 14:18> Subjective - Date & Time of Evaluation Date of Evaluation: 11/28/17 Time of Evaluation: 07:00 - Subjective Subjective: PGY1-Medicine Note, Dr. Torres's Service Pt was S&E at bedside, no new complaints today. He states that he is not having LE pain, and that the swelling and redness has decreased as compared to yesterday. He states that his breathing has improved. Patient says his withdrawal symptoms have decreased since the medication was given to him last night. Patient denies chest pain, abdominal pain, nausea, vomiting, constipation , or diarrhea. Objective - Vital Signs/Intake and Output Vital Signs (last 24 hours): Temp Pulse Resp BP Pulse Ox 97.8 F 96 H 20 151/91 H 98 11/28/17 07:25 11/28/17 07:25 11/28/17 07:25 11/28/17 07:25 11/28/17 07:25 Intake and Output: 11/28/17 11/28/17 06:59 18:59 Intake Total 720 Balance 720 - Medications Medications: Current Medications Albuterol/Ipratropium (Duoneb 3 Mg/0.5 Mg (3 Ml) Ud) 3 ml INH RQ6 [facility] Last Admin: 11/28/17 13:11 Dose: 3 ml Heparin Sodium (Porcine) (Heparin) 5,000 units SC Q8 [facility] Last Admin: 11/28/17 13:57 Dose: 5,000 units Piperacillin Sod/Tazobactam Sod (Zosyn 3.375 Gm Iv Premix) 3.375 gm in 50 mls @ 200 mls/hr IVPB Q6H [facility] Last Admin: 11/28/17 10:19 Dose: 200 mls/hr Vancomycin/Sodium Chloride (Vancomycin 1 Gm/Ns 200 Ml) 1 gm in 200 mls @ 133.333 mls/hr IVPB Q12H [facility] Stop: 12/02/17 11:01 Last Admin: 11/28/17 10:55 Dose: 133.333 mls/hr Lisinopril (Zestril) 5 mg PO DAILY [facility] Last Admin: 11/28/17 09:31 Dose: 5 mg Lorazepam (Ativan) 0.5 mg IVP Q3H PRN PRN Reason: Agitation Methadone HCl (Methadone) 10 mg PO Q24H [facility] PRN Reason: Taper Stop: 12/02/17 08:59 Methylprednisolone (Solu-Medrol) 60 mg IV Q6H [facility] Last Admin: 11/28/17 13:57 Dose: 60 mg Montelukast Sodium (Singulair) 10 mg PO HS [facility] Last Admin: 11/27/17 21:16 Dose: 10 mg Pantoprazole Sodium (Protonix Ec Tab) 40 mg PO DAILY [facility] Last Admin: 11/28/17 09:31 Dose: 40 mg Tiotropium [place] (Spiriva) 18 mcg INH RQ24 [facility] Last Admin: 11/28/17 08:29 Dose: 18 mcg Trazodone HCl (Desyrel) 100 mg PO HS PRN PRN Reason: Insomnia - Labs Labs: 11/28/17 07:23 11/28/17 07:23 - Constitutional Appears: Non-toxic, No Acute Distress - Head Exam Head Exam: ATRAUMATIC, NORMAL INSPECTION, NORMOCEPHALIC - Eye Exam Eye Exam: EOMI, Normal appearance - ENT Exam ENT Exam: Mucous Membranes Moist - Respiratory Exam Respiratory Exam: Clear to Ausculation Bilateral, NORMAL BREATHING PATTERN - Cardiovascular Exam Cardiovascular Exam: REGULAR RHYTHM, +S1, +S2 - GI/Abdominal Exam GI & Abdominal Exam: Soft, Normal Bowel Sounds. absent: Tenderness - Extremities Exam Extremities Exam: Pedal Edema. absent: Tenderness Additional comments: B/L LE erythema decreasing, from below the knee to the ankle B/L LE edema - Neurological Exam Neurological Exam: Alert, Awake, Oriented x3 - Psychiatric Exam Psychiatric exam: Normal Affect, Normal Mood - Skin Skin Exam: Erythema, Intact, Warm Assessment and Plan - Assessment and Plan (Free Text) Assessment: Leg Swelling venous stasis dermatitis v cellulitis Failed outpatient treatment with Keflex, Clindamycin, and Lasix ID consult Dr. Clark, help appreciated Doxycycline 100 IV given in ED ID started Vanco 1gm q12h and Zosyn 3.375gm q6h on 11/27/17 venous duplex negative for DVT and normal valve function b/l History of poorly controlled Asthma with likely underlying COPD Patient is short of breath at baseline. Poorly controlled as evidenced by the repetitive use of Albuterol. Given long smoking history, there is likely some superimposed COPD. continued home Singulair 10 mg daily continued home Spiriva 18 mcg daily started Koribs Q6 RJ started solumedrol 60 mg Q6 Heroin Withdrawal Psych, Dr. Dasilva consulted, help appreciated Methadone taper Trazodone 100mg po HS prn Lorazepam .5mg q3h prn HTN Lisinopril 5mg daily continue to monitor Hx IV drug abuse Hep C reactive- known to patient f/u with GI as an outpatient HIV negative Left Eye Injury patient to follow up with ophtho as an outpatient Prophylactic Measure Heparin 5000 units SC Q8 Protonix 40 mg PO daily Heart Healthy Diet <Eliu Torres - Last Filed: 11/28/17 19:34> Objective - Vital Signs/Intake and Output Vital Signs (last 24 hours): Temp Pulse Resp BP Pulse Ox 97.8 F 96 H 20 151/91 H 98 11/28/17 07:25 11/28/17 07:25 11/28/17 07:25 11/28/17 07:25 11/28/17 07:25 Intake and Output: 11/28/17 11/29/17 18:59 06:59 Intake Total 850 Balance 850 - Medications Medications: Current Medications Albuterol/Ipratropium (Duoneb 3 Mg/0.5 Mg (3 Ml) Ud) 3 ml INH RQ6 [facility] Last Admin: 11/28/17 13:11 Dose: 3 ml Heparin Sodium (Porcine) (Heparin) 5,000 units SC Q8 [facility] Last Admin: 11/28/17 13:57 Dose: 5,000 units Piperacillin Sod/Tazobactam Sod (Zosyn 3.375 Gm Iv Premix) 3.375 gm in 50 mls @ 200 mls/hr IVPB Q6H [facility] Last Admin: 11/28/17 17:43 Dose: 200 mls/hr Vancomycin HCl 1,250 mg/ (Sodium Chloride) 250 mls @ 125 mls/hr IVPB Q12H [facility] Last Admin: 11/28/17 17:43 Dose: 125 mls/hr Lisinopril (Zestril) 5 mg PO DAILY [facility] Last Admin: 11/28/17 09:31 Dose: 5 mg Lorazepam (Ativan) 0.5 mg IVP Q3H PRN PRN Reason: Agitation Methadone HCl (Methadone) 10 mg PO Q24H [facility] PRN Reason: Taper Stop: 12/02/17 08:59 Methylprednisolone (Solu-Medrol) 60 mg IV Q6H [facility] Last Admin: 11/28/17 13:57 Dose: 60 mg Montelukast Sodium (Singulair) 10 mg PO HS [facility] Last Admin: 11/27/17 21:16 Dose: 10 mg Pantoprazole Sodium (Protonix Ec Tab) 40 mg PO DAILY [facility] Last Admin: 11/28/17 09:31 Dose: 40 mg Tiotropium [place] (Spiriva) 18 mcg INH RQ24 [facility] Last Admin: 11/28/17 08:29 Dose: 18 mcg Trazodone HCl (Desyrel) 100 mg PO HS PRN PRN Reason: Insomnia - Labs Labs: 11/28/17 07:23 11/28/17 07:23 Attending/Attestation - Attestation I have personally seen and examined this patient.: Yes I have fully participated in the care of the patient.: Yes I have reviewed all pertinent clinical information, including history, physical exam and plan: Yes
--- NOTE | 2017-11-28 17:51 | CP.PCM.CON ---
History of Present Illness - History of Present Illness History of Present Illness: dictated Past Patient History - Infectious Disease Hx of Infectious Diseases: None - Past Medical History & Family History Past Medical History?: Yes - Past Social History Smoking Status: Light Smoker < 10 Cigarettes Daily - CARDIAC Hx Hypertension: No - PULMONARY Hx Asthma: Yes Hx Chronic Obstructive Pulmonary Disease (COPD): Yes - NEUROLOGICAL Hx Seizures: No - HEENT Hx HEENT Problems: No Other/Comment: glasses,Farsighted - RENAL Hx Chronic Kidney Disease: No - ENDOCRINE/METABOLIC Hx Endocrine Disorders: No - HEMATOLOGICAL/ONCOLOGICAL Hx Human Immunodeficiency Virus (HIV): No - INTEGUMENTARY Hx Dermatological Problems: No - MUSCULOSKELETAL/RHEUMATOLOGICAL Hx Falls: No - GASTROINTESTINAL Hx Gastrointestinal Disorders: No Other/Comment: Umbilical Hernia - GENITOURINARY/GYNECOLOGICAL Hx Sexually Transmitted Disorders: No - PSYCHIATRIC Hx Substance Use: Yes (cocaine,heroin) - SURGICAL HISTORY Hx Surgeries: No - ANESTHESIA Hx Anesthesia: No Hx Anesthesia Reactions: No Hx Malignant Hyperthermia: No Meds Allergies/Adverse Reactions: Allergies Allergy/AdvReac Type Severity Reaction Status Date / Time No Known Allergies Allergy Verified 11/26/17 21:06 - Medications Medications: Current Medications Albuterol/Ipratropium (Duoneb 3 Mg/0.5 Mg (3 Ml) Ud) 3 ml INH RQ6 [facility] Last Admin: 11/28/17 13:11 Dose: 3 ml Heparin Sodium (Porcine) (Heparin) 5,000 units SC Q8 [facility] Last Admin: 11/28/17 13:57 Dose: 5,000 units Piperacillin Sod/Tazobactam Sod (Zosyn 3.375 Gm Iv Premix) 3.375 gm in 50 mls @ 200 mls/hr IVPB Q6H [facility] Last Admin: 11/28/17 17:43 Dose: 200 mls/hr Vancomycin HCl 1,250 mg/ (Sodium Chloride) 250 mls @ 125 mls/hr IVPB Q12H [facility] Last Admin: 11/28/17 17:43 Dose: 125 mls/hr Lisinopril (Zestril) 5 mg PO DAILY [facility] Last Admin: 11/28/17 09:31 Dose: 5 mg Lorazepam (Ativan) 0.5 mg IVP Q3H PRN PRN Reason: Agitation Methadone HCl (Methadone) 10 mg PO Q24H [facility] PRN Reason: Taper Stop: 12/02/17 08:59 Methylprednisolone (Solu-Medrol) 60 mg IV Q6H [facility] Last Admin: 11/28/17 13:57 Dose: 60 mg Montelukast Sodium (Singulair) 10 mg PO HS [facility] Last Admin: 11/27/17 21:16 Dose: 10 mg Pantoprazole Sodium (Protonix Ec Tab) 40 mg PO DAILY [facility] Last Admin: 11/28/17 09:31 Dose: 40 mg Tiotropium [place] (Spiriva) 18 mcg INH RQ24 [facility] Last Admin: 11/28/17 08:29 Dose: 18 mcg Trazodone HCl (Desyrel) 100 mg PO HS PRN PRN Reason: Insomnia Results - Vital Signs Recent Vital Signs: Last Vital Signs Temp 97.8 F 11/28/17 07:25 Pulse 96 H 11/28/17 07:25 Resp 20 11/28/17 07:25 BP 151/91 H 11/28/17 07:25 Pulse Ox 98 11/28/17 07:25 - Labs Result Diagrams: 11/28/17 07:23 11/28/17 07:23 Labs: Laboratory Results - last 24 hr 11/27/17 11/28/17 11/28/17 20:57 07:23 07:23 WBC 8.4 D RBC 4.33 L Hgb 12.1 Hct 35.7 MCV 82.4 MCH 28.0 MCHC 34.0 RDW 14.7 H Plt Count 164 MPV 8.7 Neut % (Auto) 91.4 H Lymph % (Auto) 6.7 L Walker % (Auto) 1.8 Eos % (Auto) 0.0 Baso % (Auto) 0.1 Neut # 7.7 H Lymph # 0.6 L Walker # 0.1 Eos # 0.0 Baso # 0.0 Neutrophils % (Manual) 84 H Band Neutrophils % 6 H Lymphocytes % (Manual) 8 L Monocytes % (Manual) 2 Platelet Estimate Normal ESR 20 H Sodium 133 Potassium 4.5 Chloride 98 Carbon Dioxide 27 Anion Gap 12 BUN 11 Creatinine 0.7 L Est GFR ( Amer) > 60 Est GFR (Non-Af Amer) > 60 Random Glucose 109 Calcium 7.8 L Phosphorus 3.5 Magnesium 1.8 Total Bilirubin 0.4 AST 21 ALT 28 Alkaline Phosphatase 86 Total Protein 7.1 Albumin 3.3 L Globulin 3.8 Albumin/Globulin Ratio 0.9 L Vancomycin Peak Vancomycin Trough Urine Opiates Screen Positive H Urine Methadone Screen Negative Ur Barbiturates Screen Negative Ur Phencyclidine Scrn Negative Ur Amphetamines Screen Negative U Benzodiazepines Scrn Negative U Oth Cocaine Metabols Negative U Cannabinoids Screen Negative 11/28/17 11/28/17 10:46 13:47 WBC RBC Hgb Hct MCV MCH MCHC RDW Plt Count MPV Neut % (Auto) Lymph % (Auto) Walker % (Auto) Eos % (Auto) Baso % (Auto) Neut # Lymph # Walker # Eos # Baso # Neutrophils % (Manual) Band Neutrophils % Lymphocytes % (Manual) Monocytes % (Manual) Platelet Estimate ESR Sodium Potassium Chloride Carbon Dioxide Anion Gap BUN Creatinine Est GFR ( Amer) Est GFR (Non-Af Amer) Random Glucose Calcium Phosphorus Magnesium Total Bilirubin AST ALT Alkaline Phosphatase Total Protein Albumin Globulin Albumin/Globulin Ratio Vancomycin Peak 22.9 L Vancomycin Trough 9.3 Urine Opiates Screen Urine Methadone Screen Ur Barbiturates Screen Ur Phencyclidine Scrn Ur Amphetamines Screen U Benzodiazepines Scrn U Oth Cocaine Metabols U Cannabinoids Screen
--- NOTE | 2017-11-28 23:35 | CARD ---
APPROVED REPORT EKG Measurement Heart [id number] <Conclusion> Normal sinus rhythm Normal ECG
[2017-11-29] MEDS: MethylPREDNISolone 40 mg Vial IV SCH ×2 (01:49→14:40)
[2017-11-29] MEDS: Albuterol-Ipratrop 3 mg / 0.5 (3 ml) UD INH SCH ×4 (02:24→19:22)
--- NOTE | 2017-11-29 03:48 | CON ---
DATE: INFECTIOUS DISEASE CONSULT REQUESTED BY: Rosemary Torres MD. HISTORY OF PRESENT ILLNESS: A 52-year-old male, who was admitted with history of asthma, having bilateral leg swelling and cellulitis. He was taking Keflex, but it was not improving. He has been having this off and on for 2 months. He does say his legs swell up. He was treated at [facility], received clindamycin and Lasix, but did not improve and he does say he gets swelling when he starts to walk and has leg edema and sometimes he scratches and gets cellulitis. He also has shortness of breath and he is chronically dyspneic. He was on oxygen when I saw him. He is feeling little better at this time. He also has drug abuse problem. They are giving him methadone, as they found him having tachycardia and withdrawal symptoms yesterday. PAST MEDICAL HISTORY: Significant for asthma. PAST SURGICAL HISTORY: He denies. ALLERGIES: HE IS NOT ALLERGIC TO ANY MEDICINE. SOCIAL HISTORY: He is a smoker since age 14. He smokes 5 to 6 cigarettes now, but used to smoke 1 to 1.5 packs per day. He denies any alcohol or drug abuse, but this was not the case. He did say he had heroin detoxification in the past. FAMILY HISTORY: Father with diabetes, mother with asthma. MEDICATIONS: He is on albuterol inhaler, Singulair, and Spiriva. At present time, he is being getting albuterol, DuoNeb, heparin, Zestril, Ativan, methadone was started yesterday, Solu-Medrol - he is on 60 q. 12 hours, Singulair, Protonix. He is on Zosyn, Spiriva, Desyrel for sleep, and he is on vancomycin 1250 q. 12 - we increased it, as his peak and trough was noted to be low today. REVIEW OF SYSTEMS: He denies any chills, no fevers. Denies ear, nose or throat problems. He does have no chest pain. He does have shortness of breath, and he is on oxygen now. He has mild wheezing also. Denies any nausea, vomiting or diarrhea. Denies any urinary symptoms. Does have a history of COPD. Also he said he hit his left eye with a faucet and it is hurting him and his vision is blurry and this happened not too long ago according to him. He is not HIV positive. He does have a history of cocaine and heroin substance abuse. He has an umbilical hernia. He does get leg edema. PHYSICAL EXAMINATION: VITAL SIGNS: I find his temperature is 97.8, pulse 96, blood pressure 151/91, respirations are 20. HEENT: Head is atraumatic, normocephalic. Tongue is moist. NECK: Supple. LUNGS: Mild expiratory wheeze. HEART: S1 and S2 regular. No murmurs appreciated. ABDOMEN: Soft, flabby, nontender. No guarding. No rigidity present. EXTREMITIES: Bilaterally have edema and cellulitis on both lower extremities. Pulse is however palpable in spite of the swelling of the feet. LABORATORY DATA: Labs noted, show white count is 8.4, hemoglobin 12.1, hematocrit 35.7, platelet count is 164. He came with the white count of 3.3 - so it was going low, and 2.8, now it is 8.4. His BUN is 11, creatinine 0.7. Vancomycin trough was noted to be 9.3, and peak was 22.9. Opiates were positive. Influenza is negative. Hepatitis screen shows hepatitis C reactive. HIV 1 and 2 is negative. He is hep C positive. His chest x-ray shows no active disease. ASSESSMENT AND PLAN: He came in with asthma and bilateral leg swelling with cellulitis, which is mildly improved. We will continue with vancomycin and Zosyn at this time. Once he improves a little bit more, he probably can be discharged on oral antibiotics. We will follow. He probably has chronic obstructive pulmonary disease with bilateral leg edema, drug abuse, and that probably causes him to have these symptoms of asthma. Coby Clark MD
[2017-11-29] MEDS: Piperacill/Tazo 3.375gm in Dex 3.375 GM/50 ML BAG IVPB SCH ×4 (04:46→22:00)
[2017-11-29 07:59] LABS: BASO % 0.1 % (0.0-2.0); HEMOGLOBIN 12.1 g/dL (12.0-18.0); LYMPH # 0.4 K/uL (1.0-4.3); LYMPH % 3.8 % (20.0-40.0); MEAN CELL VOLUME 82.8 fL (80.0-94.0); MEAN CORPUSCULAR HEMOGLOBIN 27.8 pg (27.0-31.0); MEAN CORPUSCULAR HGB CONC 33.6 g/dL (33.0-37.0); MEAN PLATELET VOLUME 8.2 fL (7.2-11.7); MONO # 0.2 K/uL (0.0-0.8); MONO % 1.9 % (0.0-10.0); NEUT # 9.9 K/uL (1.8-7.0); NEUT % 94.2 % (50.0-75.0); PLATELET COUNT 217 K/uL (130-400); RBC 4.34 Mil/uL (4.40-5.90); RED CELL DISTRIBUTION WIDTH 14.8 % (11.5-14.5); WHITE BLOOD COUNT 10.5 K/uL (4.8-10.8)
[2017-11-29] MEDS: Tiotropium 18 mcg Cap For Inhalation INH SCH (08:00)
[2017-11-29 08:21] LABS: ALB/GLOB RATIO 0.8 (1.0-2.1); ALBUMIN 3.2 g/dL (3.5-5.0); ALT/SGPT 28 U/L (21-72); AST/SGOT 20 U/L (17-59); BLOOD UREA NITROGEN 14 mg/dL (9-20); CALCIUM 7.6 mg/dl (8.6-10.4); GFR AFRICAN-AMERICAN > 60; GFR NON-AFRICAN AMERICAN > 60
[2017-11-29] MEDS: Pantoprazole 40 mg EC Tab PO SCH (10:00)
[2017-11-29] MEDS ORDERED: MethylPREDNISolone 40 mg Vial IV SCH ×2 (10:00→10:30)
[2017-11-29 11:03] LABS: BANDS 1 % (0-2); LYMPHOCYTE 4 % (20-40); MONOCYTE 2 % (0-10); NEUTROPHIL 93 % (50-75); TOTAL CELLS COUNTED 100
[2017-11-29 11:04] LABS: ANISOCYTOSIS SLIGHT; LARGE PLATELETS PRESENT; PLATELET ESTIMATE NORMAL (NORMAL)
--- NOTE | 2017-11-29 15:58 | CP.PCM.PN ---
Subjective - Date & Time of Evaluation Date of Evaluation: 11/29/17 Time of Evaluation: 10:00 - Subjective Subjective: Seen and examined,no complain,foot swelling is better,SOB is better Objective - Vital Signs/Intake and Output Vital Signs (last 24 hours): Temp Pulse Resp BP Pulse Ox 98.3 F 96 H 18 164/104 H 97 11/29/17 08:37 11/29/17 08:37 11/29/17 08:37 11/29/17 08:37 11/29/17 08:37 Intake and Output: 11/29/17 11/29/17 06:59 18:59 Intake Total 1040 Balance 1040 - Medications Medications: Current Medications Albuterol/Ipratropium (Duoneb 3 Mg/0.5 Mg (3 Ml) Ud) 3 ml INH RQ6 [facility] Last Admin: 11/29/17 14:12 Dose: 3 ml Clonidine HCl (Catapres) 0.1 mg PO Q6H PRN PRN Reason: breakthru opioid wdw symptoms Gabapentin (Neurontin) 300 mg PO TID [facility] Last Admin: 11/29/17 14:37 Dose: 300 mg Heparin Sodium (Porcine) (Heparin) 5,000 units SC Q8 [facility] Last Admin: 11/29/17 14:39 Dose: 5,000 units Piperacillin Sod/Tazobactam Sod (Zosyn 3.375 Gm Iv Premix) 3.375 gm in 50 mls @ 200 mls/hr IVPB Q6H [facility] Last Admin: 11/29/17 10:32 Dose: 200 mls/hr Vancomycin HCl 1,250 mg/ (Sodium Chloride) 250 mls @ 125 mls/hr IVPB Q12H [facility] Last Admin: 11/29/17 05:55 Dose: 125 mls/hr Lisinopril (Zestril) 5 mg PO DAILY [facility] Last Admin: 11/29/17 10:00 Dose: 5 mg Lorazepam (Ativan) 0.5 mg IVP Q3H PRN PRN Reason: Agitation Methadone HCl (Methadone) 10 mg PO Q24H [facility] PRN Reason: Taper Stop: 12/02/17 08:59 Last Admin: 11/29/17 10:00 Dose: 10 mg Methylprednisolone (Solu-Medrol) 40 mg IV Q12H [facility] Last Admin: 11/29/17 14:40 Dose: 40 mg Montelukast Sodium (Singulair) 10 mg PO HS [facility] Last Admin: 11/28/17 22:03 Dose: 10 mg Pantoprazole Sodium (Protonix Ec Tab) 40 mg PO DAILY [facility] Last Admin: 11/29/17 10:00 Dose: 40 mg Tiotropium [place] (Spiriva) 18 mcg INH RQ24 [facility] Last Admin: 11/29/17 08:00 Dose: 18 mcg Trazodone HCl (Desyrel) 100 mg PO HS PRN PRN Reason: Insomnia - Labs Labs: 11/29/17 07:51 11/29/17 07:51 - Constitutional Appears: Non-toxic - Head Exam Head Exam: NORMAL INSPECTION - Eye Exam Eye Exam: Normal appearance - ENT Exam ENT Exam: Mucous Membranes Moist - Neck Exam Neck Exam: Normal Inspection - Respiratory Exam Respiratory Exam: Decreased Breath Sounds, NORMAL BREATHING PATTERN - Cardiovascular Exam Cardiovascular Exam: REGULAR RHYTHM - GI/Abdominal Exam GI & Abdominal Exam: Normal Bowel Sounds - Extremities Exam Extremities Exam: Pedal Edema. absent: Normal Inspection (bilateral leg cellulitis R>L, redness and selling present,warm and tender to touch) - Back Exam Back Exam: NORMAL INSPECTION - Neurological Exam Neurological Exam: Awake, Oriented x3 - Psychiatric Exam Psychiatric exam: Normal Affect - Skin Skin Exam: Dry Assessment and Plan - Assessment and Plan (Free Text) Assessment: 1.Bilateral leg cellulitis Failed outpatient treatment with Keflex, Clindamycin, and Lasix ID consult Dr. Clark, help appreciated clinicall improving ID started Vanco 1gm q12h and Zosyn 3.375gm q6h on 11/27/17 venous duplex negative for DVT and normal valve function b/l continue antibiotics Out of bed to ambulate 2.Exacerbation of Asthma with COPD Improving Taper steroid 3.Heroin withdrawal Psych, Dr. Dasilva consult appreciated Methadone taper Trazodone 100mg po HS prn Lorazepam .5mg q3h prn 4.Hypertension Continue lisinopril 5.Drug use HIV negative,seen by psychiatrist 6.Prophylasix Heparin 5000 units SC Q8 Protonix 40 mg PO daily [facility] Healthy Diet
[2017-11-30 01:23] VITALS: RESP 20
--- NOTE | 2017-11-30 02:33 | CP.PCM.PN ---
<Shellie Case - Last Filed: 11/30/17 07:01> Subjective - Date & Time of Evaluation Date of Evaluation: 11/30/17 Time of Evaluation: 02:33 - Subjective Subjective: Medicine Progress Note: Hospitalist Service Patient seen and examined at bedside. Per nursing no acute events overnight. Patient is doing well, breathing has improved. Offers no complaints at this time. Resting comfortably on NC. Denies headaches, dizziness, cp, palpitations, sob, abdominal pain, urinary symptoms, changes in bowel habits. Objective - Vital Signs/Intake and Output Vital Signs (last 24 hours): Temp Pulse Resp BP Pulse Ox 98.3 F 89 20 105/72 97 11/29/17 23:10 11/29/17 23:10 11/29/17 23:10 11/29/17 23:10 11/29/17 23:10 Intake and Output: 11/29/17 11/30/17 18:59 06:59 Intake Total 720 Balance 720 - Medications Medications: Current Medications Albuterol/Ipratropium (Duoneb 3 Mg/0.5 Mg (3 Ml) Ud) 3 ml INH RQ6 [facility] Last Admin: 11/29/17 19:22 Dose: 3 ml Clonidine HCl (Catapres) 0.1 mg PO Q6H PRN PRN Reason: breakthru opioid wdw symptoms Gabapentin (Neurontin) 300 mg PO TID [facility] Last Admin: 11/29/17 17:57 Dose: 300 mg Heparin Sodium (Porcine) (Heparin) 5,000 units SC Q8 [facility] Last Admin: 11/29/17 21:52 Dose: 5,000 units Piperacillin Sod/Tazobactam Sod (Zosyn 3.375 Gm Iv Premix) 3.375 gm in 50 mls @ 200 mls/hr IVPB Q6H [facility] Last Admin: 11/29/17 22:00 Dose: 200 mls/hr Vancomycin HCl 1,250 mg/ (Sodium Chloride) 250 mls @ 125 mls/hr IVPB Q12H [facility] Last Admin: 11/29/17 17:57 Dose: 125 mls/hr Lisinopril (Zestril) 5 mg PO DAILY [facility] Last Admin: 11/29/17 10:00 Dose: 5 mg Lorazepam (Ativan) 0.5 mg IVP Q3H PRN PRN Reason: Agitation Methadone HCl (Methadone) 10 mg PO Q24H [facility] PRN Reason: Taper Stop: 12/02/17 08:59 Last Admin: 11/29/17 10:00 Dose: 10 mg Methylprednisolone (Solu-Medrol) 40 mg IV Q12H [facility] Last Admin: 11/29/17 14:40 Dose: 40 mg Montelukast Sodium (Singulair) 10 mg PO HS [facility] Last Admin: 11/29/17 21:51 Dose: 10 mg Pantoprazole Sodium (Protonix Ec Tab) 40 mg PO DAILY [facility] Last Admin: 11/29/17 10:00 Dose: 40 mg Tiotropium [place] (Spiriva) 18 mcg INH RQ24 [facility] Last Admin: 11/29/17 08:00 Dose: 18 mcg Trazodone HCl (Desyrel) 100 mg PO HS PRN PRN Reason: Insomnia - Labs Labs: 11/29/17 07:51 11/29/17 07:51 - Additional Findings Additional findings: - Constitutional Appears: Non-toxic - Head Exam Head Exam: NORMAL INSPECTION - Eye Exam Eye Exam: Normal appearance - ENT Exam ENT Exam: Mucous Membranes Moist - Neck Exam Neck Exam: Normal Inspection - Respiratory Exam Respiratory Exam: Decreased Breath Sounds, NORMAL BREATHING PATTERN - Cardiovascular Exam Cardiovascular Exam: REGULAR RHYTHM - GI/Abdominal Exam GI & Abdominal Exam: Normal Bowel Sounds - Extremities Exam Extremities Exam: Pedal Edema. absent: Normal Inspection (bilateral leg cellulitis R>L, redness and selling present,warm and tender to touch) - Back Exam Back Exam: NORMAL INSPECTION - Neurological Exam Neurological Exam: Awake, Oriented x3 - Psychiatric Exam Psychiatric exam: Normal Affect - Skin Skin Exam: Dry Assessment and Plan - Assessment and Plan (Free Text) Assessment: 1.Bilateral leg cellulitis -Failed outpatient treatment with Keflex, Clindamycin, and Lasix -ID consult Dr. Clark, vel appreciated -Clinically improving -ID started Vanco 1gm q12h and Zosyn 3.375gm q6h on 11/27/17 -Venous duplex negative for DVT and normal valve function b/l -Continue antibiotics -Out of bed to ambulate 2. Exacerbation of Asthma with COPD -Improving -Continue Taper steroid -Continue Spiriva 18 mcg PO daily -Continue Singulari 10mg PO HS -Duonebs prn 3. Heroin withdrawal -Psych, Dr. Ozden consult appreciated -Continue Methadone taper -Trazodone 100mg po HS prn -Lorazepam .5mg q3h prn agitation -Clonidine prn -Neurontin 300mg PO TID 4. Hypertension -Continue lisinopril 5mg PO daily -Monitor vitals 5. Drug use -HIV negative, seen by psychiatrist -Cessation advised 6.Prophylasix Heparin 5000 units SC Q8 Protonix 40 mg PO daily Heart Healthy Diet <Eliu Torres - Last Filed: 11/30/17 16:28> Objective - Vital Signs/Intake and Output Vital Signs (last 24 hours): Temp Pulse Resp BP Pulse Ox 97.7 F 93 H 20 133/88 99 11/30/17 08:00 11/30/17 08:00 11/30/17 08:00 11/30/17 08:00 11/30/17 08:00 Intake and Output: 11/30/17 11/30/17 06:59 18:59 Intake Total 1170 Balance 1170 - Medications Medications: Current Medications Albuterol/Ipratropium (Duoneb 3 Mg/0.5 Mg (3 Ml) Ud) 3 ml INH RQ6 [facility] Last Admin: 11/30/17 13:31 Dose: 3 ml Clonidine HCl (Catapres) 0.1 mg PO Q6H PRN PRN Reason: breakthru opioid wdw symptoms Gabapentin (Neurontin) 300 mg PO TID [facility] Last Admin: 11/30/17 14:41 Dose: 300 mg Heparin Sodium (Porcine) (Heparin) 5,000 units SC Q8 [facility] Last Admin: 11/30/17 14:41 Dose: 5,000 units Piperacillin Sod/Tazobactam Sod (Zosyn 3.375 Gm Iv Premix) 3.375 gm in 50 mls @ 200 mls/hr IVPB Q6H [facility] Last Admin: 11/30/17 10:49 Dose: 200 mls/hr Vancomycin HCl 1,250 mg/ (Sodium Chloride) 250 mls @ 125 mls/hr IVPB Q12H [facility] Last Admin: 11/30/17 05:15 Dose: 125 mls/hr Lisinopril (Zestril) 5 mg PO DAILY [facility] Last Admin: 11/30/17 10:54 Dose: 5 mg Lorazepam (Ativan) 0.5 mg IVP Q3H PRN PRN Reason: Agitation Methadone HCl (Methadone) 5 mg PO Q24H [facility] PRN Reason: Taper Stop: 12/02/17 08:59 Last Admin: 11/30/17 10:49 Dose: 5 mg Methylprednisolone (Solu-Medrol) 40 mg IV Q12H [facility] Last Admin: 11/30/17 02:44 Dose: 40 mg Montelukast Sodium (Singulair) 10 mg PO HS [facility] Last Admin: 11/29/17 21:51 Dose: 10 mg Pantoprazole Sodium (Protonix Ec Tab) 40 mg PO DAILY [facility] Last Admin: 11/30/17 10:49 Dose: 40 mg Tiotropium [place] (Spiriva) 18 mcg INH RQ24 [facility] Last Admin: 11/30/17 07:55 Dose: 18 mcg Trazodone HCl (Desyrel) 100 mg PO HS PRN PRN Reason: Insomnia - Labs Labs: 11/30/17 08:50 11/30/17 08:50 Attending/Attestation - Attestation I have personally seen and examined this patient.: Yes I have fully participated in the care of the patient.: Yes I have reviewed all pertinent clinical information, including history, physical exam and plan: Yes Notes (Text): Patient was seen and examined,no complain,leg pain and swelling improving.His sob is better I agree with the documentation of the resident's assessment and the plan 11/30/17 16:26
[2017-11-30] MEDS: MethylPREDNISolone 40 mg Vial IV SCH ×2 (02:44→18:50)
[2017-11-30] MEDS: Albuterol-Ipratrop 3 mg / 0.5 (3 ml) UD INH SCH ×3 (03:03→13:31)
[2017-11-30] MEDS: Piperacill/Tazo 3.375gm in Dex 3.375 GM/50 ML BAG IVPB SCH ×4 (05:15→22:00)
[2017-11-30] MEDS: Tiotropium 18 mcg Cap For Inhalation INH SCH (07:55)
[2017-11-30 08:59] LABS: BASO % 0.2 % (0.0-2.0); HEMOGLOBIN 12.4 g/dL (12.0-18.0); LYMPH # 0.5 K/uL (1.0-4.3); LYMPH % 5.1 % (20.0-40.0); MEAN CELL VOLUME 82.6 fL (80.0-94.0); MEAN CORPUSCULAR HEMOGLOBIN 28.1 pg (27.0-31.0); MEAN PLATELET VOLUME 7.9 fL (7.2-11.7); MONO # 0.3 K/uL (0.0-0.8); MONO % 3.3 % (0.0-10.0); NEUT # 8.2 K/uL (1.8-7.0); NEUT % 91.4 % (50.0-75.0); PLATELET COUNT 245 K/uL (130-400); RED CELL DISTRIBUTION WIDTH 14.7 % (11.5-14.5)
[2017-11-30 09:31] LABS: LYMPHOCYTE 4 % (20-40); MONOCYTE 3 % (0-10); NEUTROPHIL 93 % (50-75); PLATELET ESTIMATE NORMAL (NORMAL); TOTAL CELLS COUNTED 100
[2017-11-30 09:32] LABS: ANISOCYTOSIS SLIGHT; LARGE PLATELETS PRESENT
[2017-11-30 09:49] LABS: ALB/GLOB RATIO 0.8 (1.0-2.1); ALBUMIN 2.9 g/dL (3.5-5.0); ALT/SGPT 26 U/L (21-72); AST/SGOT 17 U/L (17-59); BLOOD UREA NITROGEN 18 mg/dL (9-20); GFR AFRICAN-AMERICAN > 60; GFR NON-AFRICAN AMERICAN > 60
[2017-11-30] MEDS: Pantoprazole 40 mg EC Tab PO SCH (10:49)
[2017-12-01] MEDS: Albuterol-Ipratrop 3 mg / 0.5 (3 ml) UD INH SCH ×2 (02:28→07:34)
[2017-12-01] MEDS: MethylPREDNISolone 40 mg Vial IV SCH (03:21)
[2017-12-01] MEDS: Piperacill/Tazo 3.375gm in Dex 3.375 GM/50 ML BAG IVPB SCH ×2 (05:02→10:43)
[2017-12-01 07:48] LABS: BASO % 0.1 % (0.0-2.0); HEMOGLOBIN 12.2 g/dL (12.0-18.0); LYMPH # 0.4 K/uL (1.0-4.3); MEAN CELL VOLUME 83.6 fL (80.0-94.0); MEAN CORPUSCULAR HEMOGLOBIN 26.6 pg (27.0-31.0); MEAN CORPUSCULAR HGB CONC 31.8 g/dL (33.0-37.0); MEAN PLATELET VOLUME 7.6 fL (7.2-11.7); MONO # 0.2 K/uL (0.0-0.8); NEUT # 5.9 K/uL (1.8-7.0); NEUT % 90.9 % (50.0-75.0); PLATELET COUNT 252 K/uL (130-400); RBC 4.58 Mil/uL (4.40-5.90); WHITE BLOOD COUNT 6.5 K/uL (4.8-10.8)
[2017-12-01] MEDS: Tiotropium 18 mcg Cap For Inhalation INH SCH (08:11)
[2017-12-01 08:37] VITALS: BP 142/89; PULSE 78; TEMP 97.4; O2SAT 100
[2017-12-01 08:37] LABS: ALB/GLOB RATIO 0.9 (1.0-2.1); ALBUMIN 3.1 g/dL (3.5-5.0); ALT/SGPT 21 U/L (21-72); AST/SGOT 18 U/L (17-59); BLOOD UREA NITROGEN 22 mg/dL (9-20); CALCIUM 7.1 mg/dl (8.6-10.4); GFR AFRICAN-AMERICAN > 60; GFR NON-AFRICAN AMERICAN > 60
[2017-12-01] MEDS: Pantoprazole 40 mg EC Tab PO SCH (09:00)
[2017-12-01 10:02] LABS: LYMPHOCYTE 11 % (20-40); MONOCYTE 1 % (0-10); NEUTROPHIL 88 % (50-75); TOTAL CELLS COUNTED 100
[2017-12-01 10:03] LABS: PLATELET ESTIMATE NORMAL (NORMAL)
[2017-12-01 10:04] LABS: ANISOCYTOSIS SLIGHT
[2017-12-01 10:05] LABS: HYPOCHROMIC SLIGHT; POLYCHROMIC SLIGHT
--- NOTE | 2017-12-01 17:53 | CP.PCM.DIS ---
<Karol Crenshaw - Last Filed: 12/01/17 17:45> Provider - Provider Date of Admission: 11/28/17 14:50 Attending physician: Eliu Torres MD Primary care physician: Dr. Elmer Srinivasan Consults: Dr. Clark- ID Dr. Dasilva- Psych Time Spent in preparation of Discharge (in minutes): 45 Diagnosis - Discharge Diagnosis (1) Asthma with COPD with exacerbation Status: Resolved (2) Cellulitis Status: Resolved (3) Drug abuse and dependence Status: Chronic Hospital Course - Lab Results Lab Results: Most Recent Lab Values WBC 6.5 K/uL (4.8-10.8) 12/01/17 07:21 RBC 4.58 Mil/uL (4.40-5.90) 12/01/17 07:21 Hgb 12.2 g/dL (12.0-18.0) 12/01/17 07:21 Hct 38.3 % (35.0-51.0) 12/01/17 07:21 MCV 83.6 fL (80.0-94.0) 12/01/17 07:21 MCH 26.6 pg (27.0-31.0) L 12/01/17 07:21 MCHC 31.8 g/dL (33.0-37.0) L 12/01/17 07:21 RDW 15.0 % (11.5-14.5) H 12/01/17 07:21 Plt Count 252 K/uL (130-400) 12/01/17 07:21 MPV 7.6 fL (7.2-11.7) 12/01/17 07:21 Neut % (Auto) 90.9 % (50.0-75.0) H 12/01/17 07:21 Lymph % (Auto) 6.0 % (20.0-40.0) L 12/01/17 07:21 [place] % (Auto) 3.0 % (0.0-10.0) 12/01/17 07:21 Eos % (Auto) 0.0 % (0.0-4.0) 12/01/17 07:21 Baso % (Auto) 0.1 % (0.0-2.0) 12/01/17 07:21 Neut # 5.9 K/uL (1.8-7.0) 12/01/17 07:21 Lymph # 0.4 K/uL (1.0-4.3) L 12/01/17 07:21 [place] # 0.2 K/uL (0.0-0.8) 12/01/17 07:21 Eos # 0.0 K/uL (0.0-0.7) 12/01/17 07:21 Baso # 0.0 K/uL (0.0-0.2) 12/01/17 07:21 Neutrophils % (Manual) 88 % (50-75) H 12/01/17 07:21 Band Neutrophils % 1 % (0-2) 11/29/17 07:51 Lymphocytes % (Manual) 11 % (20-40) L 12/01/17 07:21 Monocytes % (Manual) 1 % (0-10) 12/01/17 07:21 Platelet Estimate Normal (NORMAL) 12/01/17 07:21 Large Platelets Present 11/30/17 08:50 Polychromasia Slight 12/01/17 07:21 Hypochromasia (manual) Slight 12/01/17 07:21 Anisocytosis (manual) Slight 12/01/17 07:21 ESR 20 mm/hr (0-15) H 11/28/17 07:23 Puncture Site Vein 11/26/17 22:35 pO2 23 mm/Hg (30-55) L 11/26/17 22:35 Az Test Na 11/26/17 22:35 VBG pH 7.30 (7.32-7.43) L 11/26/17 22:35 VBG pCO2 73 mmHg (40-60) H* 11/26/17 22:35 VBG HCO3 28.5 mmol/L 11/26/17 22:35 VBG O2 Sat (Calc) 45.1 % (40-65) 11/26/17 22:35 VBG Base Excess 6.8 mmol/L (0.0-2.0) H 11/26/17 22:35 Crit Value Called To Ms. talbot,rn/er 11/26/17 22:35 Crit Value Called By morteza Montaño 11/26/17 22:35 Crit Value Read Back Y 11/26/17 22:35 Blood Gas Notified Time 223911/26/17 22:35 Sodium 133 mmol/L (132-148) 12/01/17 07:21 Potassium 3.9 mmol/L (3.6-5.2) 12/01/17 07:21 Chloride 97 mmol/L (98-107) L 12/01/17 07:21 Carbon Dioxide 31 mmol/L (22-30) H 12/01/17 07:21 Anion Gap 9 (10-20) L 12/01/17 07:21 BUN 22 mg/dL (9-20) H 12/01/17 07:21 Creatinine 0.8 mg/dL (0.8-1.5) 12/01/17 07:21 Est GFR ( Amer) > 60 12/01/17 07:21 Est GFR (Non-Af Amer) > 60 12/01/17 07:21 Random Glucose 124 mg/dL (75-110) H 12/01/17 07:21 Hemoglobin A1c 6.1 % (4.2-6.5) 11/27/17 07:42 Calcium 7.1 mg/dl (8.6-10.4) L 12/01/17 07:21 Phosphorus 3.7 mg/dL (2.5-4.5) 11/29/17 07:51 Magnesium 2.0 mg/dL (1.6-2.3) 11/29/17 07:51 Total Bilirubin 0.5 mg/dL (0.2-1.3) 12/01/17 07:21 AST 18 U/L (17-59) 12/01/17 07:21 ALT 21 U/L (21-72) 12/01/17 07:21 Alkaline Phosphatase 80 U/L (38-126) 12/01/17 07:21 Troponin I < 0.0120 ng/mL (0.00-0.120) 11/26/17 22:47 C-React Prot High Sens 4.51 mg/L (1.00-3.00) H 11/26/17 22:47 Total Protein 6.4 g/dL (6.3-8.3) 12/01/17 07:21 Albumin 3.1 g/dL (3.5-5.0) L 12/01/17 07:21 Globulin 3.3 gm/dL (2.2-3.9) 12/01/17 07:21 Albumin/Globulin Ratio 0.9 (1.0-2.1) L 12/01/17 07:21 Urine Color Yellow (YELLOW) 11/26/17 22:47 Urine Clarity Sl hazy (Clear) 11/26/17 22:47 Urine pH 6.0 (5.0-8.0) 11/26/17 22:47 Ur Specific Hunt 1.030 (1.003-1.030) 11/26/17 22:47 Urine Protein Trace mg/dL (NEGATIVE) 11/26/17 22:47 Urine Glucose (UA) Negative mg/dL (Normal) 11/26/17 22:47 Urine Ketones Negative mg/dL (NEGATIVE) 11/26/17 22:47 Urine Blood Negative (NEGATIVE) 11/26/17 22:47 Urine Nitrate Negative (NEGATIVE) 11/26/17 22:47 Urine Bilirubin Small (NEGATIVE) 11/26/17 22:47 Urine Urobilinogen 2.0 mg/dL (0.2-1.0) 11/26/17 22:47 Ur Leukocyte Esterase Negative Frances/uL (Negative) 11/26/17 22:47 Urine WBC (Auto) 4 /hpf (0-5) 11/26/17 22:47 Urine RBC (Auto) 2 /hpf (0-3) 11/26/17 22:47 Vancomycin Peak 22.9 ug/mL (30.0-40.0) L 11/28/17 13:47 Vancomycin Trough 9.3 ug/mL (5.0-10.0) 11/28/17 10:46 Urine Opiates Screen Positive (NEGATIVE) H 11/27/17 20:57 Urine Methadone Screen Negative (NEGATIVE) 11/27/17 20:57 Ur Barbiturates Screen Negative (NEGATIVE) 11/27/17 20:57 Ur Phencyclidine Scrn Negative (NEGATIVE) 11/27/17 20:57 Ur Amphetamines Screen Negative (NEGATIVE) 11/27/17 20:57 U Benzodiazepines Scrn Negative (NEGATIVE) 11/27/17 20:57 U Oth Cocaine Metabols Negative (NEGATIVE) 11/27/17 20:57 U Cannabinoids Screen Negative (NEGATIVE) 11/27/17 20:57 Hepatitis A IgM Ab Negative (NEGATIVE) 01/04/18 07:42 Hep Bs Antigen Negative (NEGATIVE) 11/27/17 07:42 Hep B Core IgM Ab Negative (NEGATIVE) 11/27/17 07:42 Hepatitis C Antibody Reactive (NEGATIVE) 11/27/17 07:42 HIV 1&2 Antibody Screen Negative (NEGATIVE) 11/27/17 08:00 Influenza Typ A,B (EIA) Negative for flu a/b (NEGATIVE) 11/26/17 22:44 - Hospital Course Hospital Course: "CC: leg swelling This is a 52 year old male with PMHx Asthma who presents complaining of bilateral leg swelling. This has been ongoing for about 2 months now. He has seen his PMD Dr. Srinivasan who prescribed Keflex. Patient noted initial improvements but then it returned to how it started. Patient then sought treatment at [facility] [place] where he was given Clindamycin and Lasix. Patient also noted improvement with this therapy before returning back to baseline. It is associated with sharp, stabbing pain around the malleoli and the dorsum of the feet bilaterally. Patient states that walking exacerbates his symptoms and elevating his legs provides some relief. Patient also complaining of shortness of breath, but states that he is chronically dyspneic at baseline. Patient uses his albuterol inhaler 4-5 times daily. 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 For patient's cellulitis ID (Dr. Clark) started Vanco 1gm q12h and Zosyn 3.375gm q6h on 11/27/17. Venous duplex negative for DVT and showed normal valve function b/l. Patient's LE edema and erythema greatly improved. Patient will continue 7 days of doxycyline as an outpatient. For patient's asthma exacerbation patient was given Spiriva 18 mcg PO daily, Singular 10mg po HS, Duonebs as needed, and Solu-Medrol taper. Cxray showed no active disease. Patient's shortness of breath resolved. Patient had elevated blood pressure while in the hospital and started on Lisinopril 5mg daily. Patient's blood pressures decreased. For patient's heroin withdrawal, psychiatry was consulted. Patient put on a Methadone taper along with Gabapentin for anxiety and Trazadone for insomnia. Patient did not feel withdrawal symptoms after the first day. Patient feeling much better upon discharge. This is a summary of the patient's hospital course, please see chart for details. Patient to return to ED if symptoms return. Discharge Exam - Additional Findings Additional findings: - Constitutional Appears: Non-toxic - Head Exam Head Exam: NORMAL INSPECTION - Eye Exam Eye Exam: Normal appearance - ENT Exam ENT Exam: Mucous Membranes Moist - Neck Exam Neck Exam: Normal Inspection - Respiratory Exam Respiratory Exam: Decreased Breath Sounds, NORMAL BREATHING PATTERN - Cardiovascular Exam Cardiovascular Exam: REGULAR RHYTHM - GI/Abdominal Exam GI & Abdominal Exam: Normal Bowel Sounds - Extremities Exam Extremities Exam: Pedal Edema. absent: Normal Inspection (bilateral leg cellulitis R>L, redness and selling present,warm and tender to touch) - Back Exam Back Exam: NORMAL INSPECTION - Neurological Exam Neurological Exam: Awake, Oriented x3 - Psychiatric Exam Psychiatric exam: Normal Affect - Skin Skin Exam: Dry Discharge Plan - Discharge Medications Prescriptions: Doxycycline Hyclate 100 mg PO BID #14 capsule Lisinopril [Zestril] 5 mg PO DAILY #14 tab - Follow Up Plan Condition: STABLE Disposition: HOME/ ROUTINE Instructions: Lisinopril (By mouth), Doxycycline (By mouth), Cellulitis (DC), Heart Healthy Diet (DC) Additional Instructions: Patient stable for discharge as per Dr. Morel. Patient to take Doxycyline 100mg twice a day for 7 days. Patient to also take Lisinopril 5mg po daily. Patient to continue home medications. Patient to follow up with primary care doctor within one week. Patient to return to Emergency Room if symptoms worsen. Patient explained instructions who understands and agrees. <Marino Morel - Last Filed: 12/02/17 18:15> Provider - Provider Date of Admission: 11/28/17 14:50 Attending physician: Eliu Torres MD Hospital Course - Lab Results Lab Results: Most Recent Lab Values WBC 6.5 K/uL (4.8-10.8) 12/01/17 07:21 RBC 4.58 Mil/uL (4.40-5.90) 12/01/17 07:21 Hgb 12.2 g/dL (12.0-18.0) 12/01/17 07:21 Hct 38.3 % (35.0-51.0) 12/01/17 07:21 MCV 83.6 fL (80.0-94.0) 12/01/17 07:21 MCH 26.6 pg (27.0-31.0) L 12/01/17 07:21 MCHC 31.8 g/dL (33.0-37.0) L 12/01/17 07:21 RDW 15.0 % (11.5-14.5) H 12/01/17 07:21 Plt Count 252 K/uL (130-400) 12/01/17 07:21 MPV 7.6 fL (7.2-11.7) 12/01/17 07:21 Neut % (Auto) 90.9 % (50.0-75.0) H 12/01/17 07:21 Lymph % (Auto) 6.0 % (20.0-40.0) L 12/01/17 07:21 [place] % (Auto) 3.0 % (0.0-10.0) 12/01/17 07:21 Eos % (Auto) 0.0 % (0.0-4.0) 12/01/17 07:21 Baso % (Auto) 0.1 % (0.0-2.0) 12/01/17 07:21 Neut # 5.9 K/uL (1.8-7.0) 12/01/17 07:21 Lymph # 0.4 K/uL (1.0-4.3) L 12/01/17 07:21 [place] # 0.2 K/uL (0.0-0.8) 12/01/17 07:21 Eos # 0.0 K/uL (0.0-0.7) 12/01/17 07:21 Baso # 0.0 K/uL (0.0-0.2) 12/01/17 07:21 Neutrophils % (Manual) 88 % (50-75) H 12/01/17 07:21 Band Neutrophils % 1 % (0-2) 11/29/17 07:51 Lymphocytes % (Manual) 11 % (20-40) L 12/01/17 07:21 Monocytes % (Manual) 1 % (0-10) 12/01/17 07:21 Platelet Estimate Normal (NORMAL) 12/01/17 07:21 Large Platelets Present 11/30/17 08:50 Polychromasia Slight 12/01/17 07:21 Hypochromasia (manual) Slight 12/01/17 07:21 Anisocytosis (manual) Slight 12/01/17 07:21 ESR 20 mm/hr (0-15) H 11/28/17 07:23 Puncture Site Vein 11/26/17 22:35 pO2 23 mm/Hg (30-55) L 11/26/17 22:35 Az Test Na 11/26/17 22:35 VBG pH 7.30 (7.32-7.43) L 11/26/17 22:35 VBG pCO2 73 mmHg (40-60) H* 11/26/17 22:35 VBG HCO3 28.5 mmol/L 11/26/17 22:35 VBG O2 Sat (Calc) 45.1 % (40-65) 11/26/17 22:35 VBG Base Excess 6.8 mmol/L (0.0-2.0) H 11/26/17 22:35 Crit Value Called To Ms. talbot,mattie/er 11/26/17 22:35 Crit Value Called By morteza Montaño 11/26/17 22:35 Crit Value Read Back Y 11/26/17 22:35 Blood Gas Notified Time 2240 11/26/17 22:35 Sodium 133 mmol/L (132-148) 12/01/17 07:21 Potassium 3.9 mmol/L (3.6-5.2) 12/01/17 07:21 Chloride 97 mmol/L (98-107) L 12/01/17 07:21 Carbon Dioxide 31 mmol/L (22-30) H 12/01/17 07:21 Anion Gap 9 (10-20) L 12/01/17 07:21 BUN 22 mg/dL (9-20) H 12/01/17 07:21 Creatinine 0.8 mg/dL (0.8-1.5) 12/01/17 07:21 Est GFR ( Amer) > 60 12/01/17 07:21 Est GFR (Non-Af Amer) > 60 12/01/17 07:21 Random Glucose 124 mg/dL (75-110) H 12/01/17 07:21 Hemoglobin A1c 6.1 % (4.2-6.5) 11/27/17 07:42 Calcium 7.1 mg/dl (8.6-10.4) L 12/01/17 07:21 Phosphorus 3.7 mg/dL (2.5-4.5) 11/29/17 07:51 Magnesium 2.0 mg/dL (1.6-2.3) 11/29/17 07:51 Total Bilirubin 0.5 mg/dL (0.2-1.3) 12/01/17 07:21 AST 18 U/L (17-59) 12/01/17 07:21 ALT 21 U/L (21-72) 12/01/17 07:21 Alkaline Phosphatase 80 U/L (38-126) 12/01/17 07:21 Troponin I < 0.0120 ng/mL (0.00-0.120) 11/26/17 22:47 C-React Prot High Sens 4.51 mg/L (1.00-3.00) H 11/26/17 22:47 Total Protein 6.4 g/dL (6.3-8.3) 12/01/17 07:21 Albumin 3.1 g/dL (3.5-5.0) L 12/01/17 07:21 Globulin 3.3 gm/dL (2.2-3.9) 12/01/17 07:21 Albumin/Globulin Ratio 0.9 (1.0-2.1) L 12/01/17 07:21 Urine Color Yellow (YELLOW) 11/26/17 22:47 Urine Clarity Sl hazy (Clear) 11/26/17 22:47 Urine pH 6.0 (5.0-8.0) 11/26/17 22:47 Ur Specific [place] 1.030 (1.003-1.030) 11/26/17 22:47 Urine Protein Trace mg/dL (NEGATIVE) 11/26/17 22:47 Urine Glucose (UA) Negative mg/dL (Normal) 11/26/17 22:47 Urine Ketones Negative mg/dL (NEGATIVE) 11/26/17 22:47 Urine Blood Negative (NEGATIVE) 11/26/17 22:47 Urine Nitrate Negative (NEGATIVE) 11/26/17 22:47 Urine Bilirubin Small (NEGATIVE) 11/26/17 22:47 Urine Urobilinogen 2.0 mg/dL (0.2-1.0) 11/26/17 22:47 Ur Leukocyte Esterase Negative Frances/uL (Negative) 11/26/17 22:47 Urine WBC (Auto) 4 /hpf (0-5) 11/26/17 22:47 Urine RBC (Auto) 2 /hpf (0-3) 11/26/17 22:47 Vancomycin Peak 22.9 ug/mL (30.0-40.0) L 11/28/17 13:47 Vancomycin Trough 9.3 ug/mL (5.0-10.0) 11/28/17 10:46 Urine Opiates Screen Positive (NEGATIVE) H 11/27/17 20:57 Urine Methadone Screen Negative (NEGATIVE) 11/27/17 20:57 Ur Barbiturates Screen Negative (NEGATIVE) 11/27/17 20:57 Ur Phencyclidine Scrn Negative (NEGATIVE) 11/27/17 20:57 Ur Amphetamines Screen Negative (NEGATIVE) 11/27/17 20:57 U Benzodiazepines Scrn Negative (NEGATIVE) 11/27/17 20:57 U Oth Cocaine Metabols Negative (NEGATIVE) 11/27/17 20:57 U Cannabinoids Screen Negative (NEGATIVE) 11/27/17 20:57 Hepatitis A IgM Ab Negative (NEGATIVE) 11/27/17 07:42 Hep Bs Antigen Negative (NEGATIVE) 11/27/17 07:42 Hep B Core IgM Ab Negative (NEGATIVE) 11/27/17 07:42 Hepatitis C Antibody Reactive (NEGATIVE) 11/27/17 07:42 HIV 1&2 Antibody Screen Negative (NEGATIVE) 11/27/17 08:00 Influenza Typ A,B (EIA) Negative for flu a/b (NEGATIVE) 11/26/17 22:44 Attending/Attestation - Attestation I have personally seen and examined this patient.: Yes I have fully participated in the care of the patient.: Yes I have reviewed all pertinent clinical information, including history, physical exam and plan: Yes Notes (Text): Patient admitted for bilateral leg cellulitis that failed outpatient treatment and exacerbation of asthma. For patient's cellulitis ID (Dr. Clark) started Vanco 1gm q12h and Zosyn 3.375gm q6h on 11/27/17. Venous duplex negative for DVT and showed normal valve function b/l. Patient's LE edema and erythema greatly improved. Patient will continue 7 days of doxycyline as an outpatient. For patient's asthma exacerbation patient was given Spiriva 18 mcg PO daily, Singular 10mg po HS, Duonebs as needed, and Solu-Medrol taper. Cxray showed no active disease. Patient's shortness of breath resolved. Patient had elevated blood pressure while in the hospital and started on Lisinopril 5mg daily. Patient's blood pressures decreased. For patient's heroin withdrawal, psychiatry was consulted. Patient put on a Methadone taper along with Gabapentin for anxiety and Trazadone for insomnia. Patient did not feel withdrawal symptoms after the first day.
== END 2017-12-01 14:23 | disposition home or self-care (01) | DRG 277 ==
LOC: C.ER 19:54 → C.9E 11-27 02:27 → C.5S 11-27 02:31 → C.6T 11-27 03:19 → OBSVTOIN 11-28 14:50 → C.6T 11-30 22:42
PROVIDERS: ADMIT Internal Medicine; ATTEND Internal Medicine
DX: L03.116 Cellulitis of left lower limb (principal); L03.115 Cellulitis of right lower limb; J44.1 Chronic obstructive pulmonary disease with (acute) exacerbation; F11.23 Opioid dependence with withdrawal; J45.901 Unspecified asthma with (acute) exacerbation; I87.2 Venous insufficiency (chronic) (peripheral); K42.9 Umbilical hernia without obstruction or gangrene; F14.90 Cocaine use, unspecified, uncomplicated; B19.20 Unspecified viral hepatitis C without hepatic coma; I10 Essential (primary) hypertension; F32.9 Major depressive disorder, single episode, unspecified; F17.210 Nicotine dependence, cigarettes, uncomplicated; Z79.899 Other long term (current) drug therapy

== ENCOUNTER 2018-03-04 05:51 | Inpatient (IN) | payer MEDICAID ==
[2018-03-04 05:51] VITALS: BMI 25.0
--- NOTE | 2018-03-04 06:16 | C.PDOC ---
History Of Present Illness pt presents with shortness of breath and abdominal pain, worsening over a few days. pt still does heroin daily and occasionally cocaine, and smokes 1ppd. No chest paiin or palpitations. No f/c/n/v Time Seen by Provider: 03/04/18 06:16 Chief Complaint (Nursing): Shortness Of Breath History Per: Patient History/Exam Limitations: no limitations Onset/Duration Of Symptoms: Days Current Symptoms Are (Timing): Worse Initiating Event: Upper Respiratory Illness Quality: Dull Exacerbating Factor(s): Exertion, Coughing Current Respiratory Medications: See Home Med List Severity: Severe Pain Scale Rating Of: 8 Associated Symptoms: denies: Fever, Chills, Anxiety Reports Recently: Seen In ED, Treated By A Physician, Hospitalized Recent travel outside of the [place]: No Additional History Per: Patient Past Medical History Reviewed: Historical Data, Nursing Documentation, Vital Signs Vital Signs: Last Vital Signs Temp 98.0 F 03/04/18 05:58 Pulse 115 H 03/04/18 06:12 Resp 24 03/04/18 06:12 BP 180/125 H 03/04/18 06:12 Pulse Ox 82 L 03/04/18 06:25 - Medical History PMH: Asthma, COPD Denies: Diabetes, Hepatitis, HIV, HTN, Chronic Kidney Disease, Seizures, Sexually Transmitted Disease - [facility] DETOXIFICATION SERVICES FOR SUBSTANCE ABUSE TREATMENT (03/10/16) Family History: States: No Known Family Hx - Social History Hx Tobacco Use: Yes Hx Alcohol Use: No Hx Substance Use: Yes (cocaine,heroin) - Immunization History Hx Tetanus Toxoid Vaccination: No Hx Influenza Vaccination: No Hx Pneumococcal Vaccination: No Review Of Systems Constitutional: Negative for: Fever, Chills Eyes: Negative for: Redness ENT: Negative for: Throat Pain Cardiovascular: Negative for: Chest Pain Respiratory: Positive for: Shortness of Breath, Wheezing Gastrointestinal: Positive for: Abdominal Pain. Negative for: Nausea, Vomiting Genitourinary: Negative for: Dysuria Musculoskeletal: Negative for: Back Pain Skin: Negative for: Rash Neurological: Negative for: Weakness Psych: Negative for: Anxiety Physical Exam - Physical Exam Appears: In Acute Distress Skin: Warm, Dry Head: Normacephalic Eye(s): bilateral: Normal Inspection Oral Mucosa: Moist Neck: Supple, Other (mild jvd) Chest: Symmetrical Cardiovascular: Rhythm Regular Respiratory: Decreased Breath Sounds, No Rales, Rhonchi, Wheezing Gastrointestinal/Abdominal: Soft, Tenderness (umbilical hernia), No Distention, No Guarding, No Rebound Back: No CVA Tenderness Extremity: Normal ROM, Pedal Edema Extremity: Bilateral: Atraumatic, Normal ROM Pulses: Left Dorsalis Pedis: Normal, Right Dorsalis Pedis: Normal Neurological/Psych: Oriented x3 Gait: Steady ED Course And Treatment ECG: Interpreted By Me, Viewed By Me O2 Sat by Pulse Oximetry: 82 Pulse Ox Interpretation: Abnormal - Radiology CXR: Interpreted by Me, Viewed By Me Critical Care Time - Critical Care Note Total Time (in mins): 30 Documented critical care: time excludes all time spent performing seperately billable procedures. Disposition Counseled Patient/Family Regarding: Studies Performed, Diagnosis - Disposition Disposition Time: 06:37 Condition: GUARDED Forms: [email or web address] (Bengali) - Clinical Impression Clinical Impression: COPD exacerbation, Dyspnea Physician Patient Turnover Patient Signed Over To: Maria G Gutiérrez Handoff Comments: pending labs, re-eval and disposition
[2018-03-04] MEDS ORDERED: Morphine 4 MG/ML VIAL IV ONE (06:19)
[2018-03-04] MEDS ORDERED: Albuterol-Ipratrop 3 mg / 0.5 (3 ml) UD ONE (06:26)
[2018-03-04] MEDS: Albuterol-Ipratrop 3 mg / 0.5 (3 ml) UD IH SCH ×2 (06:28→06:39)
[2018-03-04] MEDS ORDERED: Morphine 4 MG/ML VIAL ONE ×2 (06:41→09:52)
[2018-03-04 06:59] LABS: ABG ALLEN TEST POS; ARTERIAL BLOOD GAS HCO3 24.4 mmol/L (21-28); ARTERIAL BLOOD GAS PCO2 54 mm/Hg (35-45); ARTERIAL BLOOD GAS PO2 219 mm/Hg (80-100); ARTERIAL BLOOD GAS TCO2 28.3 mmol/L (22-28)
--- NOTE | 2018-03-04 07:06 | RAD ---
Chest x-ray single frontal view History: Shortness of breath. Comparison: 11/26/2017 Findings: Biapical pleural thickening with upper lobe granulomatous changes. Mild venous congestion. Right hilar prominence. Degenerative changes in the spine. Impression: Biapical pleural thickening with upper lobe granulomatous changes. Mild venous congestion. Right hilar prominence.
[2018-03-04 07:12] LABS: ALB/GLOB RATIO 0.8 (1.0-2.1); ALBUMIN 4.3 g/dL (3.5-5.0); ALT/SGPT 28 U/L (21-72); AST/SGOT 38 U/L (17-59); BLOOD UREA NITROGEN 21 mg/dL (9-20); CALCIUM 9.2 mg/dl (8.6-10.4); GFR AFRICAN-AMERICAN > 60; GFR NON-AFRICAN AMERICAN > 60
[2018-03-04 07:22] LABS: B-TYPE NATRIURETIC PEPTIDE 113 pg/mL (0-900)
[2018-03-04 07:24] LABS: BASO % 0.8 % (0.0-2.0); EOS # 0.1 K/uL (0.0-0.7); EOS % 1.7 % (0.0-4.0); LYMPH # 1.3 K/uL (1.0-4.3); LYMPH % 24.8 % (20.0-40.0); MEAN CELL VOLUME 81.7 fL (80.0-94.0); MEAN CORPUSCULAR HEMOGLOBIN 27.4 pg (27.0-31.0); MEAN CORPUSCULAR HGB CONC 33.5 g/dL (33.0-37.0); MEAN PLATELET VOLUME 7.7 fL (7.2-11.7); MONO # 0.5 K/uL (0.0-0.8); MONO % 9.1 % (0.0-10.0); NEUT # 3.3 K/uL (1.8-7.0); NEUT % 63.6 % (50.0-75.0); NRBC % 0.4 % (0.0-2.0); RBC 5.64 Mil/uL (4.40-5.90); RED CELL DISTRIBUTION WIDTH 15.3 % (11.5-14.5); WHITE BLOOD COUNT 5.2 K/uL (4.8-10.8)
[2018-03-04 07:39] LABS: INR 1.1; PROTHROMBIN TIME 11.8 SECONDS (9.7-12.2)
[2018-03-04] MEDS ORDERED: Iodixanol 320 mg/ml 150 ml Bottle IV ONE (07:42)
[2018-03-04 08:30] LABS: BARBITURATES, UR NEGATIVE (NEGATIVE); BENZODIAZEPINES, UR NEGATIVE (NEGATIVE); PHENCYCLIDINE, UR NEGATIVE (NEGATIVE)
[2018-03-04 08:50] LABS: HEMOGLOBIN 15.5 g/dL (12.0-18.0)
[2018-03-04 08:50] LABS: OPIATES, UR POSITIVE (NEGATIVE)
[2018-03-04 08:59] LABS: URINE BACTERIA RARE (<OCC); URINE BILIRUBIN NEGATIVE (NEGATIVE); URINE BLOOD NEGATIVE (NEGATIVE); URINE CLARITY Hazy (Clear); URINE COLOR Amber (YELLOW); URINE GLUCOSE (UA) NORMAL (Normal); URINE HYALINE CAST 0-2 /lpf (0-2); URINE LEUKOCYTE ESTERASE NEG Leu/uL (Negative); URINE PROTEIN NEGATIVE (NEGATIVE); URINE UROBILINOGEN NORMAL mg/dL (0.2-1.0)
--- NOTE | 2018-03-04 09:46 | CT ---
PROCEDURE: CT Abdomen and Pelvis with contrast HISTORY: abd pain, umbilical hernia COMPARISON: None. TECHNIQUE: Contrast dose: 100 mL Visipaque 320 Radiation dose: Total exam DLP = 228.1 mGy-cm. This CT exam was performed using one or more of the following dose reduction techniques: Automated exposure control, adjustment of the mA and/or kV according to patient size, and/or use of iterative reconstruction technique. FINDINGS: LOWER THORAX: Unremarkable. LIVER: Large left hepatic 4.5 x 3.7 cm cyst. No gross lesion or ductal dilatation. GALLBLADDER AND BILE DUCTS: Unremarkable. PANCREAS: Unremarkable. No gross lesion or ductal dilatation. SPLEEN: Unremarkable. ADRENALS: Unremarkable. No mass. KIDNEYS AND URETERS: Unremarkable. No hydronephrosis. No solid mass. VASCULATURE: Unremarkable. No aortic aneurysm. BOWEL: Short-segment fluid-filled small bowel within umbilical hernia. No obstruction. No gross mural thickening. APPENDIX: Normal appendix. PERITONEUM: Umbilical hernia containing fat and short segment of fluid-filled bowel with inflammatory change within the hernia sac. Sac measures 3.4 x 3.5 cm in greatest axial dimension with neck measuring 1.4 cm. No free fluid. No free air. Fat containing right inguinal hernia. LYMPH NODES: Unremarkable. No enlarged lymph nodes. BLADDER: Unremarkable. REPRODUCTIVE: Unremarkable. BONES: No acute fracture. OTHER FINDINGS: None. IMPRESSION: Umbilical hernia containing fat and short segment of fluid-filled bowel with inflammatory change within the hernia sac suspicious for incarceration with strangulation not excluded. Sac measures 3.4 x 3.5 cm in greatest axial dimension with hernia neck measuring 1.4 cm. Additional findings as above. Findings conveyed to Dr. Du by Dr. Deras fat containing right inguinal at 9:40 a.m. on 03/04/2018.
[2018-03-04] MEDS ORDERED: Morphine 4 MG/ML VIAL IV STA (09:51)
--- NOTE | 2018-03-04 11:06 | CP.PCM.CON ---
History of Present Illness - History of Present Illness History of Present Illness: PGY-1 surgery consult note for Dr Higginbotham. CC: "My stomach hurts" HPI: Mr Churchill is a 52 year old male with a PMHx of Asthma, Polysubstance abuse/ dependence, bilateral leg cellulitis who presents to [facility] ER for abdominal pain due to an incarcerated umbilical hernia. He states the pain began last night and was sudden in onset and progressive. He states he first felt the umbilical hernia 3 months ago, around that time he went to [facility] ER and had the hernia reduced. Since then the hernia site would occasionally become hard but this would resolve on it's own. However on this instance the hernia site has remained hard and is causing him constant pain. He has not tried to reduce the hernia himself due to the pain. On review of systems he admitted to chills, shortness of breath and constipation. He was seen in the ER saturating well on 5L oxygen via nasal cannula. He denied chest pain, diarrhea, fever, vomiting, dysuria. His last meal was at 1200 yesterday. His last use of heroin was yesterday evening. PMD: Elmer Srinivasan PMHx: Asthma, Polysubstance abuse/dependence, bilateral leg cellulitis PSHx: Denies Allergies: NKA Home Medications: Albuterol inhaler, Singulair 10 mg daily, Spiriva 18 mcg daily FamHx: Father with DM, Mother with Asthma SocialHx: 30 pack year smoking hx, denies alcohol use, daily heroin user via IV (last use yesterday, last detox attempt 02/2016), cocaine use via snorting Review of Systems - Constitutional Constitutional: Chills. absent: Fever, Headache, Malaise, Night Sweats - EENT Eyes: absent: Change in Vision - Cardiovascular Cardiovascular: absent: Chest Pain, Chest Pain at Rest, Dyspnea, Lightheadedness - Respiratory Respiratory: Wheezing. absent: Cough, Dyspnea, Excessive Mucous Production - Gastrointestinal Gastrointestinal: Abdominal Pain, Constipation. absent: Diarrhea, Heartburn, Loose Stools, Vomiting - Genitourinary Genitourinary: absent: Dysuria - Musculoskeletal Musculoskeletal: absent: Arthralgias - Integumentary Integumentary: absent: Bleeding Lesions - Neurological Neurological: absent: Confusion Past Patient History - Infectious Disease Hx of Infectious Diseases: None - Past Medical History & Family History Past Medical History?: Yes - Past Social History Smoking Status: Light Smoker < 10 Cigarettes Daily - CARDIAC Hx Hypertension: No - PULMONARY Hx Asthma: Yes Hx Chronic Obstructive Pulmonary Disease (COPD): Yes - NEUROLOGICAL Hx Seizures: No - HEENT Hx HEENT Problems: No Other/Comment: glasses,Farsighted - RENAL Hx Chronic Kidney Disease: No - ENDOCRINE/METABOLIC Hx Endocrine Disorders: No - HEMATOLOGICAL/ONCOLOGICAL Hx Human Immunodeficiency Virus (HIV): No - INTEGUMENTARY Hx Dermatological Problems: No - MUSCULOSKELETAL/RHEUMATOLOGICAL Hx Musculoskeletal Disorders: No Hx Falls: No - GASTROINTESTINAL Hx Gastrointestinal Disorders: No Other/Comment: Umbilical Hernia - GENITOURINARY/GYNECOLOGICAL Hx Sexually Transmitted Disorders: No - PSYCHIATRIC Hx Substance Use: Yes (cocaine,heroin) - SURGICAL HISTORY Hx Surgeries: No - ANESTHESIA Hx Anesthesia: No Hx Anesthesia Reactions: No Hx Malignant Hyperthermia: No Meds Allergies/Adverse Reactions: Allergies Allergy/AdvReac Type Severity Reaction Status Date / Time No Known Allergies Allergy Verified 11/26/17 21:06 Physical Exam - Constitutional Appears: Well, No Acute Distress, Unkempt - Head Exam Head Exam: ATRAUMATIC, NORMAL INSPECTION - Eye Exam Eye Exam: EOMI Pupil Exam: PERRL - ENT Exam ENT Exam: Mucous Membranes Moist - Neck Exam Neck exam: Positive for: Normal Inspection. Negative for: Lymphadenopathy, Tenderness - Respiratory Exam Respiratory Exam: Wheezes, NORMAL BREATHING PATTERN. absent: Rales, Rhonchi - Cardiovascular Exam Cardiovascular Exam: Tachycardia, REGULAR RHYTHM. absent: JVD, +S1, +S2, Systolic Murmur - GI/Abdominal Exam GI & Abdominal Exam: Hernia, Normal Bowel Sounds, Tenderness. absent: Distended , Firm, Guarding, Pulsatile Mass, Rebound Additional comments: 3 cm diameter circumscribed hernia at umbilicus - non-reducible; no skin changes noted; mildly tender to palpation - Extremities Exam Extremities exam: Positive for: normal capillary refill, normal inspection, pedal pulses present. Negative for: calf tenderness, tenderness - Neurological Exam Neurological exam: Alert, CN II-XII Intact, Oriented x3 - Psychiatric Exam Psychiatric exam: Flat Affect - Skin Skin Exam: Intact, Normal Color, Warm Results - Vital Signs Recent Vital Signs: Last Vital Signs Temp 98.0 F 03/04/18 05:58 Pulse 100 H 03/04/18 09:54 Resp 18 03/04/18 09:54 BP 126/82 03/04/18 09:54 Pulse Ox 91 L 03/04/18 09:54 - Labs Result Diagrams: 03/04/18 06:19 03/04/18 06:19 Labs: Laboratory Results - last 24 hr 03/04/18 03/04/18 03/04/18 06:19 06:19 06:19 WBC 5.2 RBC 5.64 Hgb 15.5 D Hct 46.1 MCV 81.7 MCH 27.4 MCHC 33.5 RDW 15.3 H Plt Count 219 MPV 7.7 Neut % (Auto) 63.6 Lymph % (Auto) 24.8 [place] % (Auto) 9.1 Eos % (Auto) 1.7 Baso % (Auto) 0.8 Neut # (Auto) 3.3 Lymph # (Auto) 1.3 [place] # (Auto) 0.5 Eos # (Auto) 0.1 Baso # (Auto) 0.0 PT 11.8 INR 1.1 APTT 33 Puncture Site pCO2 pO2 HCO3 ABG pH ABG Total CO2 ABG O2 Saturation ABG Base Excess Az Test Liter Flow Sodium 141 Potassium 4.6 Chloride 101 Carbon Dioxide 24 Anion Gap 21 H BUN 21 H Creatinine 0.8 Est GFR ( Amer) > 60 Est GFR (Non-Af Amer) > 60 Random Glucose 111 H Calcium 9.2 Total Bilirubin 1.2 AST 38 ALT 28 Alkaline Phosphatase 133 H D Troponin I < 0.0120 NT-Pro-B Natriuret Pep 113 Total Protein 9.4 H Albumin 4.3 Globulin 5.1 H Albumin/Globulin Ratio 0.8 L Urine Color Urine Clarity Urine pH Ur Specific [place] Urine Protein Urine Glucose (UA) Urine Ketones Urine Blood Urine Nitrate Urine Bilirubin Urine Urobilinogen Ur Leukocyte Esterase Urine WBC (Auto) Urine RBC (Auto) Urine Bacteria Hyaline Casts Urine Opiates Screen Urine Methadone Screen Ur Barbiturates Screen Ur Phencyclidine Scrn Ur Amphetamines Screen U Benzodiazepines Scrn U Oth Cocaine Metabols U Cannabinoids Screen 03/04/18 03/04/18 03/04/18 06:41 07:56 07:56 WBC RBC Hgb Hct MCV MCH MCHC RDW Plt Count MPV Neut % (Auto) Lymph % (Auto) [place] % (Auto) Eos % (Auto) Baso % (Auto) Neut # (Auto) Lymph # (Auto) [place] # (Auto) Eos # (Auto) Baso # (Auto) PT INR APTT Puncture Site Rr pCO2 54 H pO2 219 H HCO3 24.4 ABG pH 7.30 L ABG Total CO2 28.3 H ABG O2 Saturation 100.0 H ABG Base Excess -0.7 Az Test Pos Liter Flow 6.0 Sodium Potassium Chloride Carbon Dioxide Anion Gap BUN Creatinine Est GFR ( Amer) Est GFR (Non-Af Amer) Random Glucose Calcium Total Bilirubin AST ALT Alkaline Phosphatase Troponin I NT-Pro-B Natriuret Pep Total Protein Albumin Globulin Albumin/Globulin Ratio Urine Color Rosanna Urine Clarity Hazy Urine pH 5.0 Ur Specific [place] 1.027 Urine Protein Negative Urine Glucose (UA) Normal Urine Ketones Negative Urine Blood Negative Urine Nitrate Negative Urine Bilirubin Negative Urine Urobilinogen Normal Ur Leukocyte Esterase Neg Urine WBC (Auto) 3 Urine RBC (Auto) 3 Urine Bacteria Rare Hyaline Casts 0-2 Urine Opiates Screen Positive H Urine Methadone Screen Negative Ur Barbiturates Screen Negative Ur Phencyclidine Scrn Negative Ur Amphetamines Screen Negative U Benzodiazepines Scrn Negative U Oth Cocaine Metabols Positive H U Cannabinoids Screen Negative Assessment & Plan (1) Incarcerated umbilical hernia Assessment and Plan: Patient with incarcerated umbilical hernia - strangulation is not suspected based on physical exam. Plan for OR tomorrow 03/05/[address] Higginbotham. Consent obtained and in chart. Will make NPO after midnight. Full liquid diet until then. Morphine 2mg IVP Q4H PRN for pain. Dulcolax 10mg IN to be given once for constipation. Chronic conditions including Asthma being managed by medicine team. Imaging: CT abd/pelvis with IV contrast: * Umbilical hernia containing fat and short segment of fluid-filled bowel with inflammatory change within the hernia sac suspicious for incarceration with strangulation not excluded. Sac measures 3.4 x 3.5 cm in greatest axial dimension with hernia neck measuring 1.4 cm. Status: Acute Priority: High
[2018-03-04] MEDS ORDERED: Albuterol HFA 90 mcg/actuation (8 g) IH PRN (11:41)
[2018-03-04] MEDS ORDERED: Albuterol-Ipratrop 3 mg / 0.5 (3 ml) UD INH PRN (11:43)
[2018-03-04 12:09] LABS: VENOUS BLOOD GAS PCO2 27 mmHg (40-60); VENOUS BLOOD GAS PO2 67 mm/Hg (30-55); VENOUS BLOOD PH 7.31 (7.32-7.43)
[2018-03-04 12:13] LABS: ARTERIAL BLOOD GAS HCO3 24.8 mmol/L (21-28); ARTERIAL BLOOD GAS O2 SAT 100.7 % (95-98); ARTERIAL BLOOD GAS PCO2 54 mm/Hg (35-45); ARTERIAL BLOOD GAS PH 7.31 (7.35-7.45); ARTERIAL BLOOD GAS PO2 218 mm/Hg (80-100); ARTERIAL BLOOD GAS TCO2 28.9 mmol/L (22-28)
[2018-03-04 12:14] LABS: ABG ALLEN TEST POS
[2018-03-04] MEDS: Albuterol-Ipratrop 3 mg / 0.5 (3 ml) UD INH SCH ×3 (12:15→20:03)
[2018-03-04] MEDS: Morphine 4 MG/ML VIAL IVP PRN (13:21)
--- NOTE | 2018-03-04 15:27 | CP.PCM.HP ---
History of Present Illness - History of Present Illness History of Present Illness: HPI: Patient is a 52 y/o male with a past medical history of asthma, COPD, Hep C , and heroine use who presents for abdominal pain 2/2 umbilical hernia, asthma exacerbation, b/l leg swelling and heroin dependence with desire for detox. He states that he developed the hernia 4-5 months ago but that the pain became excruciating last night. Patient was seen and had the hernia reduced in the [facility] 3 months ago and occasionally he reduces it on his own, however he was unable to do this last night due to the pain. He also complains of 2-3 day history of worsening shortness of breath which he attributes to his asthma. Patient reports he cannot comfortably walk from his bedroom to his bathroom due to difficulty breathing. His SOB is associated with a sharp pain in the middle of his chest and palpitations. He takes Albuterol, Ventolin, Spiriva and Singulair and states that he has daily exacerbations for which he needs to use his inhaler. He currently also has b/l LE swelling. He states that at prior admission he was found to have b/l LE cellulitis. He does not have CHF as far as he knows; echo done in 2016 showed mild pulmonary HTN but otherwise no abnormalities. He also requests heroin detox. He has been using 3-10 bags daily for about 30 years with a history of numerous detoxes and rehab stays. His last use was this morning around 3am. He uses cocaine sporadically ("once every few months"). He also has a 30 year history of smoking; he states that he has cut down a lot and currently smoked 6-7 cigarettes daily. He denies use of alcohol. ROS is positive for SOB, wheezing, cold sweats, CP, palpitations, LE swelling. Negative for fever, N/V/C/D, cough, throat pain, back pain, dysuria, rash, weakness. PMD: Elmer Srinivasan PMHx: Asthma, Polysubstance abuse/dependence, Hep C, bilateral leg cellulitis, eye injury (requiring unknown eye drops) PSHx: Denies Allergies: NKA Home Medications: Advair, Proventil, Singulair 10 mg daily, Spiriva 18 mcg daily FamHx: Father with DM, Mother and sister with Asthma SocialHx: 30 pack year smoking hx, denies alcohol use, daily heroin user via IV (last use yesterday, last detox attempt 02/2016), cocaine use via snorting Present on Admission - Present on Admission Any Indicators Present on Admission: No Review of Systems - Review of Systems All systems: reviewed and no additional remarkable complaints except (as per HPI ) Past Patient History - Infectious Disease Hx of Infectious Diseases: None - Past Medical History & Family History Past Medical History?: Yes - Past Social History Smoking Status: Light Smoker < 10 Cigarettes Daily - CARDIAC Hx Hypertension: No - PULMONARY Hx Asthma: Yes Hx Chronic Obstructive Pulmonary Disease (COPD): Yes - NEUROLOGICAL Hx Seizures: No - HEENT Hx HEENT Problems: No Other/Comment: glasses,Farsighted - RENAL Hx Chronic Kidney Disease: No - ENDOCRINE/METABOLIC Hx Endocrine Disorders: No - HEMATOLOGICAL/ONCOLOGICAL Hx Human Immunodeficiency Virus (HIV): No - INTEGUMENTARY Hx Dermatological Problems: No - MUSCULOSKELETAL/RHEUMATOLOGICAL Hx Musculoskeletal Disorders: No Hx Falls: No - GASTROINTESTINAL Hx Gastrointestinal Disorders: No Other/Comment: Umbilical Hernia - GENITOURINARY/GYNECOLOGICAL Hx Sexually Transmitted Disorders: No - PSYCHIATRIC Hx Substance Use: Yes (cocaine,heroin) - SURGICAL HISTORY Hx Surgeries: No - ANESTHESIA Hx Anesthesia: No Hx Anesthesia Reactions: No Hx Malignant Hyperthermia: No Meds Allergies/Adverse Reactions: Allergies Allergy/AdvReac Type Severity Reaction Status Date / Time No Known Allergies Allergy Verified 11/26/17 21:06 Physical Exam - Constitutional Appears: Non-toxic, No Acute Distress - Head Exam Head Exam: ATRAUMATIC, NORMAL INSPECTION, NORMOCEPHALIC - Eye Exam Eye Exam: EOMI, Normal appearance, PERRL - ENT Exam ENT Exam: Mucous Membranes Moist - Respiratory Exam Respiratory Exam: Decreased Breath Sounds, Clear to Auscultation Bilateral, NORMAL BREATHING PATTERN. absent: Accessory Muscle Use, Rales, Rhonchi, Wheezes - Cardiovascular Exam Cardiovascular Exam: REGULAR RHYTHM, +S1, +S2 - GI/Abdominal Exam GI & Abdominal Exam: Hernia (umbilical), Normal Bowel Sounds, Soft, Tenderness ( paraumbilical). absent: Distended - Extremities Exam Extremities exam: Positive for: normal capillary refill, pedal edema (mild). Negative for: calf tenderness - Back Exam Back exam: NORMAL INSPECTION - Neurological Exam Neurological exam: Alert, Oriented x3 - Psychiatric Exam Psychiatric exam: Normal Affect, Normal Mood - Skin Skin Exam: Dry, Intact, Normal Color, Warm Results - Vital Signs Recent Vital Signs: Last Vital Signs Temp 97.9 F 03/04/18 11:19 Pulse 93 H 03/04/18 11:19 Resp 20 03/04/18 13:00 BP 115/83 18 11:19 Pulse Ox 93 L 03/04/18 13:00 - Labs Result Diagrams: 03/04/18 06:19 03/04/18 06:19 Labs: Laboratory Results - last 24 hr 03/04/18 03/04/18 03/04/18 06:19 06:19 06:19 WBC 5.2 RBC 5.64 Hgb 15.5 D Hct 46.1 MCV 81.7 MCH 27.4 MCHC 33.5 RDW 15.3 H Plt Count 219 MPV 7.7 Neut % (Auto) 63.6 Lymph % (Auto) 24.8 [place] % (Auto) 9.1 Eos % (Auto) 1.7 Baso % (Auto) 0.8 Neut # (Auto) 3.3 Lymph # (Auto) 1.3 [place] # (Auto) 0.5 Eos # (Auto) 0.1 Baso # (Auto) 0.0 PT 11.8 INR 1.1 APTT 33 Puncture Site pCO2 pO2 HCO3 ABG pH ABG Total CO2 ABG O2 Saturation ABG Base Excess Az Test ABG Potassium VBG pH VBG pCO2 VBG HCO3 VBG Total CO2 VBG O2 Sat (Calc) VBG Base Excess VBG Potassium Glucose Lactate Liter Flow Crit Value Called To Crit Value Called By Crit Value Read Back Blood Gas Notified Time Sodium 141 Potassium 4.6 Chloride 101 Carbon Dioxide 24 Anion Gap 21 H BUN 21 H Creatinine 0.8 Est GFR ( Amer) > 60 Est GFR (Non-Af Amer) > 60 Random Glucose 111 H Calcium 9.2 Total Bilirubin 1.2 AST 38 ALT 28 Alkaline Phosphatase 133 H D Troponin I < 0.0120 NT-Pro-B Natriuret Pep 113 Total Protein 9.4 H Albumin 4.3 Globulin 5.1 H Albumin/Globulin Ratio 0.8 L Arterial Blood Potassium Venous Blood Potassium Urine Color Urine Clarity Urine pH Ur Specific [place] Urine Protein Urine Glucose (UA) Urine Ketones Urine Blood Urine Nitrate Urine Bilirubin Urine Urobilinogen Ur Leukocyte Esterase Urine WBC (Auto) Urine RBC (Auto) Urine Bacteria Hyaline Casts Urine Opiates Screen Urine Methadone Screen Ur Barbiturates Screen Ur Phencyclidine Scrn Ur Amphetamines Screen U Benzodiazepines Scrn U Oth Cocaine Metabols U Cannabinoids Screen 03/04/18 03/04/18 03/04/18 06:41 07:08 07:56 WBC RBC Hgb Hct MCV MCH MCHC RDW Plt Count MPV Neut % (Auto) Lymph % (Auto) [place] % (Auto) Eos % (Auto) Baso % (Auto) Neut # (Auto) Lymph # (Auto) [place] # (Auto) Eos # (Auto) Baso # (Auto) PT INR APTT Puncture Site Rr Rr pCO2 54 H 54 H pO2 219 H 218 H HCO3 24.4 24.8 ABG pH 7.30 L 7.31 L ABG Total CO2 28.3 H 28.9 H ABG O2 Saturation 100.0 H 100.7 H ABG Base Excess -0.7 -0.1 Az Test Pos Pos ABG Potassium 4.3 VBG pH VBG pCO2 VBG HCO3 VBG Total CO2 VBG O2 Sat (Calc) VBG Base Excess VBG Potassium Glucose 116 H Lactate 0.7 Liter Flow 6.0 6 Crit Value Called To Crit Value Called By Crit Value Read Back Blood Gas Notified Time Sodium 139.0 Potassium Chloride 106.0 Carbon Dioxide Anion Gap BUN Creatinine Est GFR ( Amer) Est GFR (Non-Af Amer) Random Glucose Calcium Total Bilirubin AST ALT Alkaline Phosphatase Troponin I NT-Pro-B Natriuret Pep Total Protein Albumin Globulin Albumin/Globulin Ratio Arterial Blood Potassium 4.3 Venous Blood Potassium Urine Color Rosanna Urine Clarity Hazy Urine pH 5.0 Ur Specific [place] 1.027 Urine Protein Negative Urine Glucose (UA) Normal Urine Ketones Negative Urine Blood Negative Urine Nitrate Negative Urine Bilirubin Negative Urine Urobilinogen Normal Ur Leukocyte Esterase Neg Urine WBC (Auto) 3 Urine RBC (Auto) 3 Urine Bacteria Rare Hyaline Casts 0-2 Urine Opiates Screen Urine Methadone Screen Ur Barbiturates Screen Ur Phencyclidine Scrn Ur Amphetamines Screen U Benzodiazepines Scrn U Oth Cocaine Metabols U Cannabinoids Screen 03/04/18 03/04/18 07:56 12:05 WBC RBC Hgb Hct MCV MCH MCHC RDW Plt Count MPV Neut % (Auto) Lymph % (Auto) [place] % (Auto) Eos % (Auto) Baso % (Auto) Neut # (Auto) Lymph # (Auto) [place] # (Auto) Eos # (Auto) Baso # (Auto) PT INR APTT Puncture Site pCO2 pO2 67 H HCO3 ABG pH ABG Total CO2 ABG O2 Saturation ABG Base Excess Az Test ABG Potassium VBG pH 7.31 L VBG pCO2 27 L VBG HCO3 16.2 VBG Total CO2 14.4 L VBG O2 Sat (Calc) 96.4 H VBG Base Excess -11.0 L VBG Potassium 1.9 L* Glucose 70 L Lactate 0.4 L Liter Flow Crit Value Called To Dr harrison edwards Crit Value Called By Lia vo band saw filer Crit Value Read Back Y Blood Gas Notified Time 1210 Sodium 144.0 Potassium Chloride 119.0 H Carbon Dioxide Anion Gap BUN Creatinine Est GFR ( Amer) Est GFR (Non-Af Amer) Random Glucose Calcium Total Bilirubin AST ALT Alkaline Phosphatase Troponin I NT-Pro-B Natriuret Pep Total Protein Albumin Globulin Albumin/Globulin Ratio Arterial Blood Potassium Venous Blood Potassium 1.9 L* Urine Color Urine Clarity Urine pH Ur Specific [place] Urine Protein Urine Glucose (UA) Urine Ketones Urine Blood Urine Nitrate Urine Bilirubin Urine Urobilinogen Ur Leukocyte Esterase Urine WBC (Auto) Urine RBC (Auto) Urine Bacteria Hyaline Casts Urine Opiates Screen Positive H Urine Methadone Screen Negative Ur Barbiturates Screen Negative Ur Phencyclidine Scrn Negative Ur Amphetamines Screen Negative U Benzodiazepines Scrn Negative U Oth Cocaine Metabols Positive H U Cannabinoids Screen Negative Assessment & Plan - Assessment and Plan (Free Text) Plan: Respiratory Acidosis with History of Asthma and Underlying COPD * Trop negative * BNP: 113 * Continue Singulair * Continue Spiriva * Duonebs Q2H PRN and Q4H RJ * Solumedrol 40 mg Q6H Incarcerated Umbilical Hernia * CT abd/pel: incarcerated umbilical hernia with possible strangulation * Dr. Higginbotham consulted (Gen Surg) * plan for OR tomorrow * Full liquid diet, NPO after midnight * Hold DVT PPX * f/u blood culture * Zofran PRN nausea Heroine use * Dr. Ritchie consulted (psych) for possible methadone * UDS: +opiates and cocaine * Monitor for withdrawal symptoms Prophylactic Measures * GI: not indicated * DVT: SCDs, hold heparin
[2018-03-04] MEDS ORDERED: Fluticasone-Salmeterol 250-50mcg Diskus IH SCH (18:00)
[2018-03-04] MEDS: MethylPREDNISolone 40 mg Vial IVP SCH (18:14)
[2018-03-04] MEDS ORDERED: Tobramycin 0.3% OPH OINT OU SCH (18:45)
[2018-03-04] MEDS: Tobramycin 0.3% OPHT SOLN OU SCH (21:58)
[2018-03-05] MEDS: MethylPREDNISolone 40 mg Vial IVP SCH ×4 (00:32→17:59)
[2018-03-05] MEDS: Albuterol-Ipratrop 3 mg / 0.5 (3 ml) UD INH SCH ×5 (00:52→20:42)
[2018-03-05 05:33] LABS: ABG ALLEN TEST POS; ARTERIAL BLOOD GAS HEMOGLOBIN 14.2 g/dL (11.7-17.4); ARTERIAL BLOOD GAS O2 SAT 99.2 % (95-98); ARTERIAL BLOOD GAS PCO2 49 mm/Hg (35-45); ARTERIAL BLOOD GAS PH 7.41 (7.35-7.45); ARTERIAL BLOOD GAS PO2 107 mm/Hg (80-100); ARTERIAL BLOOD GAS TCO2 32.6 mmol/L (22-28)
[2018-03-05 07:21] LABS: BASO % 0.1 % (0.0-2.0); HEMOGLOBIN 13.7 g/dL (12.0-18.0); LYMPH # 0.5 K/uL (1.0-4.3); LYMPH % 7.5 % (20.0-40.0); MEAN CELL VOLUME 81.3 fL (80.0-94.0); MEAN CORPUSCULAR HEMOGLOBIN 27.5 pg (27.0-31.0); MEAN CORPUSCULAR HGB CONC 33.8 g/dL (33.0-37.0); MEAN PLATELET VOLUME 7.9 fL (7.2-11.7); MONO # 0.1 K/uL (0.0-0.8); MONO % 1.9 % (0.0-10.0); NEUT # 6.5 K/uL (1.8-7.0); NEUT % 90.5 % (50.0-75.0); PLATELET COUNT 198 K/uL (130-400); RBC 4.96 Mil/uL (4.40-5.90); RED CELL DISTRIBUTION WIDTH 15.2 % (11.5-14.5); WHITE BLOOD COUNT 7.2 K/uL (4.8-10.8)
[2018-03-05 07:44] LABS: ALB/GLOB RATIO 0.9 (1.0-2.1); ALBUMIN 3.7 g/dL (3.5-5.0); ALT/SGPT 21 U/L (21-72); AST/SGOT 27 U/L (17-59); BLOOD UREA NITROGEN 19 mg/dL (9-20); GFR AFRICAN-AMERICAN > 60; GFR NON-AFRICAN AMERICAN > 60
[2018-03-05] MEDS: Tiotropium 18 mcg Cap For Inhalation IH SCH (08:10)
[2018-03-05 08:41] LABS: BANDS 2 % (0-2); LYMPHOCYTE 10 % (20-40); MONOCYTE 1 % (0-10); NEUTROPHIL 87 % (50-75); PLATELET ESTIMATE NORMAL (NORMAL); TOTAL CELLS COUNTED 100
[2018-03-05] MEDS: Tobramycin 0.3% OPHT SOLN OU SCH ×3 (09:44→17:59)
--- NOTE | 2018-03-05 12:07 | CP.PCM.CON ---
History of Present Illness - History of Present Illness History of Present Illness: Reason for consult: Pre-operative clearance HPI: 52M with PMHx of asthma, COPD, Heroin use presented to the ED with abdominal pain. shortness of breath, b/l leg swelling and a desire for heroin detox. Found to have an.incarcerated umbilical hernia with possible strangulation. General Surgery was consulted and requested pre-op clearance for a repair in the OR today. Patient reports no shortness of breath currently. PMHx: Asthma, COPD, heroin use, umbilical hernia 4-5 months, PSH: denies Home Meds: albuterol inhaler, singulair 10mg QD, Spiriva 18 mcg QD Allergies: NKDA SH: 30 pack year smoking hx, denies alcohol use, daily heroin use IV, intranasal cocaine use Review of Systems - Review of Systems All systems: reviewed and no additional remarkable complaints except ( complaining of dyspnea on exertion but denies cough) Past Patient History - Infectious Disease Hx of Infectious Diseases: None - Past Medical History & Family History Past Medical History?: Yes - Past Social History Smoking Status: Light Smoker < 10 Cigarettes Daily - CARDIAC Hx Hypertension: No - PULMONARY Hx Asthma: Yes Hx Chronic Obstructive Pulmonary Disease (COPD): Yes - NEUROLOGICAL Hx Seizures: No - HEENT Hx HEENT Problems: No Other/Comment: glasses,Farsighted - RENAL Hx Chronic Kidney Disease: No - ENDOCRINE/METABOLIC Hx Endocrine Disorders: No - HEMATOLOGICAL/ONCOLOGICAL Hx Human Immunodeficiency Virus (HIV): No - INTEGUMENTARY Hx Dermatological Problems: No - MUSCULOSKELETAL/RHEUMATOLOGICAL Hx Musculoskeletal Disorders: No Hx Falls: No - GASTROINTESTINAL Hx Gastrointestinal Disorders: No Other/Comment: Umbilical Hernia - GENITOURINARY/GYNECOLOGICAL Hx Sexually Transmitted Disorders: No - PSYCHIATRIC Hx Substance Use: Yes (cocaine,heroin) - SURGICAL HISTORY Hx Surgeries: No - ANESTHESIA Hx Anesthesia: No Hx Anesthesia Reactions: No Hx Malignant Hyperthermia: No Meds Allergies/Adverse Reactions: Allergies Allergy/AdvReac Type Severity Reaction Status Date / Time No Known Allergies Allergy Verified 11/26/17 21:06 - Medications Medications: Current Medications Acetaminophen (Tylenol 325mg Tab) 650 mg PO Q6 PRN PRN Reason: Pain, moderate (4-7) Albuterol/Ipratropium (Duoneb 3 Mg/0.5 Mg (3 Ml) Ud) 3 ml INH RQ2 PRN PRN Reason: Shortness of Breath Albuterol/Ipratropium (Duoneb 3 Mg/0.5 Mg (3 Ml) Ud) 3 ml INH RQ4 [facility] Last Admin: 03/05/18 11:21 Dose: 3 ml Methylprednisolone (Solu-Medrol) 40 mg IVP Q6 [facility] Last Admin: 03/05/18 11:08 Dose: 40 mg Montelukast Sodium (Singulair) 10 mg PO DAILY [facility] Last Admin: 03/05/18 09:44 Dose: 10 mg Morphine Sulfate (Morphine) 2 mg IVP Q4H PRN PRN Reason: Pain, severe (8-10) Last Admin: 03/04/18 13:21 Dose: 2 mg Ondansetron HCl (Zofran Inj) 4 mg IVP Q6 PRN PRN Reason: Nausea/Vomiting Tiotropium [place] (Spiriva) 18 mcg IH RQ24 [facility] Last Admin: 03/05/18 08:10 Dose: 18 mcg Tobramycin Sulfate (Tobrex 0.3% Oph Soln) 1 drop OU QID [facility] Last Admin: 03/05/18 09:44 Dose: 1 drop Physical Exam - Head Exam Head Exam: ATRAUMATIC, NORMOCEPHALIC - Eye Exam Eye Exam: Normal appearance - ENT Exam ENT Exam: Mucous Membranes Moist - Neck Exam Neck exam: Positive for: Normal Inspection - Respiratory Exam Respiratory Exam: Clear to Auscultation Bilateral - Cardiovascular Exam Cardiovascular Exam: REGULAR RHYTHM - GI/Abdominal Exam GI & Abdominal Exam: Soft - Extremities Exam Extremities exam: Positive for: normal inspection - Neurological Exam Neurological exam: Alert, Oriented x3 Results - Vital Signs Recent Vital Signs: Last Vital Signs Temp 97.8 F 03/05/18 07:45 Pulse 73 03/05/18 07:45 Resp 20 03/05/18 07:45 BP 125/80 03/05/18 07:45 Pulse Ox 97 03/05/18 07:45 - Labs Result Diagrams: 03/05/18 07:00 03/05/18 07:00 Labs: Laboratory Results - last 24 hr 03/04/18 03/04/18 03/05/18 07:08 12:05 05:30 WBC RBC Hgb Hct MCV MCH MCHC RDW Plt Count MPV Neut % (Auto) Lymph % (Auto) [place] % (Auto) Eos % (Auto) Baso % (Auto) Neut # (Auto) Lymph # (Auto) [place] # (Auto) Eos # (Auto) Baso # (Auto) Neutrophils % (Manual) Band Neutrophils % Lymphocytes % (Manual) Monocytes % (Manual) Platelet Estimate Puncture Site Rr Rra pCO2 54 H 49 H pO2 218 H 67 H 107 H HCO3 24.8 29.0 H ABG pH 7.31 L 7.41 ABG Total CO2 28.9 H 32.6 H ABG O2 Saturation 100.7 H 99.2 H ABG Base Excess -0.1 5.3 H ABG Hemoglobin 14.2 ABG Carboxyhemoglobin 2.5 H POC ABG HHb (Measured) 0.8 ABG Methemoglobin 1.5 Az Test Pos Pos ABG Potassium 4.3 VBG pH 7.31 L VBG pCO2 27 L VBG HCO3 16.2 VBG Total CO2 14.4 L VBG O2 Sat (Calc) 96.4 H VBG Base Excess -11.0 L VBG Potassium 1.9 L* A-a O2 Difference 96.0 Respiratory Index 0.9 Hgb O2 Saturation 95.2 Sodium 139.0 144.0 Chloride 106.0 119.0 H Glucose 116 H 70 L Lactate 0.7 0.4 L Liter Flow 6 4.0 FiO2 37.0 Crit Value Called To Dr harrison edwards 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 Crit Value Read Back Y Blood Gas Notified Time 1210 Potassium Carbon Dioxide Anion Gap BUN Creatinine Est GFR ( Amer) Est GFR (Non-Af Amer) Random Glucose Calcium Total Bilirubin AST ALT Alkaline Phosphatase Total Protein Albumin Globulin Albumin/Globulin Ratio Arterial Blood Potassium 4.3 Venous Blood Potassium 1.9 L* Blood Type Antibody Screen 03/05/18 03/05/18 03/05/18 07:00 07:00 09:07 WBC 7.2 RBC 4.96 Hgb 13.7 Hct 40.3 MCV 81.3 MCH 27.5 MCHC 33.8 RDW 15.2 H Plt Count 198 MPV 7.9 Neut % (Auto) 90.5 H Lymph % (Auto) 7.5 L [place] % (Auto) 1.9 Eos % (Auto) 0.0 Baso % (Auto) 0.1 Neut # (Auto) 6.5 Lymph # (Auto) 0.5 L [place] # (Auto) 0.1 Eos # (Auto) 0.0 Baso # (Auto) 0.0 Neutrophils % (Manual) 87 H Band Neutrophils % 2 Lymphocytes % (Manual) 10 L Monocytes % (Manual) 1 Platelet Estimate Normal Puncture Site pCO2 pO2 HCO3 ABG pH ABG Total CO2 ABG O2 Saturation ABG Base Excess ABG Hemoglobin ABG Carboxyhemoglobin POC ABG HHb (Measured) ABG Methemoglobin Az Test ABG Potassium VBG pH VBG pCO2 VBG HCO3 VBG Total CO2 VBG O2 Sat (Calc) VBG Base Excess VBG Potassium A-a O2 Difference Respiratory Index Hgb O2 Saturation Sodium 138 Chloride 99 Glucose Lactate Liter Flow FiO2 Crit Value Called To Crit Value Called By Crit Value Read Back Blood Gas Notified Time Potassium 4.8 Carbon Dioxide 27 Anion Gap 16 BUN 19 Creatinine 0.6 L Est GFR ( Amer) > 60 Est GFR (Non-Af Amer) > 60 Random Glucose 126 H Calcium 9.0 Total Bilirubin 0.7 AST 27 ALT 21 D Alkaline Phosphatase 98 Total Protein 8.0 Albumin 3.7 Globulin 4.3 H Albumin/Globulin Ratio 0.9 L Arterial Blood Potassium Venous Blood Potassium Blood Type O POSITIVE Antibody Screen Negative Assessment & Plan (1) COPD (chronic obstructive pulmonary disease) Status: Acute Comment: patient with long history of smoking complaining of dyspnea on exertion. Denies shortness of breath at rest, denies cough, denies fever chills. patient was started on IV steroids and nebulizer treat and spiriva. ABG was reviewed with slightly elevated pCO2. Patient at moderate risk for surgery from pulmonary standpoint (2) Incarcerated hernia Status: Acute
--- NOTE | 2018-03-05 13:45 | PCM.PSYCH ---
Initial Psychiatric Evaluation - Initial Psychiatric Evaluation Type of Admission: Voluntary Legal Status: Capacity Chief Complaint (in patient's own words): Consult for Heroin Withdrawal History of Present Illness and Precipitating Events: Patient seen, chart reviewed, and discussed with staff. This is a 52 year old male who presented to the ED on 03/04/2018 for abdominal pain and found to have an incarcerated hernia. Patient has history of opioid use disorder. Patient states he uses 3-10 bags of heroin per day; he is an IV user. Patient states he last used yesterday before coming to the hospital. Patient previously attended detox at [facility]; he states he remained sober for 1 week following discharge. His longest sobriety was for 1 year. Patient currently does not have withdrawal symptoms. He is receiving morphine for the pain; he is due to have surgery on the incarcerated hernia today. Patient states he also uses cocaine every so often. He denies alcohol use. He denies other illicit drug use, such as marijuana and painkillers. Patient denies past history of psychiatric hospitalizations. He states he currently feels depressed and anxious. He denies suicidal ideation, hallucinations, or feelings of paranoia. medical history: Asthma, COPD, Hep C psych history: Opioid Use Disorder Current Medications: Active Medications Generic Name Dose Route Start Last Admin Trade Name Freq PRN Reason Stop Dose Admin Acetaminophen 650 mg 03/04/18 11:52 Tylenol 325mg Tab PO Q6 PRN Pain, moderate (4-7) Albuterol/Ipratropium 3 ml 03/04/18 11:43 Duoneb 3 Mg/0.5 Mg (3 Ml) Ud INH RQ2 PRN Shortness of Breath Albuterol/Ipratropium 3 ml 03/04/18 12:00 03/05/18 11:21 Duoneb 3 Mg/0.5 Mg (3 Ml) Ud INH 3 ml RQ4 RJ Administration Methylprednisolone 40 mg 03/04/18 18:00 03/05/18 11:08 Solu-Medrol IVP 40 mg Q6 RJ Administration Montelukast Sodium 10 mg 03/05/18 10:00 03/05/18 09:44 Singulair PO 10 mg DAILY RJ Administration Morphine Sulfate 2 mg 03/04/18 11:52 03/04/18 13:21 Morphine IVP 2 mg Q4H PRN Administration Pain, severe (8-10) Ondansetron HCl 4 mg 03/04/18 11:52 Zofran Inj IVP Q6 PRN Nausea/Vomiting Tiotropium [place] 18 mcg 03/05/18 08:00 03/05/18 08:10 Spiriva IH 18 mcg RQ24 RJ Administration Tobramycin Sulfate 1 drop 03/04/18 22:00 03/05/18 09:44 Tobrex 0.3% Ophth Soln OU 1 drop QID RJ Administration Past Psychiatric History - Past Psychiatric History Previous Treatment History: None History of ETOH/Drug Use: Opioid Use Disorder Pertinent Medical Hx (Current Medical&Sleep Prob, Allergies): Allergies Allergy/AdvReac Type Severity Reaction Status Date / Time No Known Allergies Allergy Verified 11/26/17 21:06 Albuterol Sulfate [Proventil Hfa] 0.09 mg IH Q4 PRN #1 ml 10/31/15 Fluticasone/Salmeterol 250/50 [Advair Diskus 250/50] 1 puff IH BID #1 puff 10/31 Montelukast Sodium [Singulair] 10 mg PO DAILY 03/04/18 Tiotropium [Spiriva] 18 mcg IH DAILY 03/04/18 Tobramycin/Dexamethasone [Tobradex St Eye Drops] 0.3 % OS Q4 03/04/18 Review of Systems - Review of Systems All systems: reviewed and no additional remarkable complaints except - Psychiatric Psychiatric: Anxiety, Depression. absent: Auditory Hallucinations, Hallucinations, Paranoia, Suicidal Ideation, Visual Hallucinations Mental Status Examination - Personal Presentation Personal Presentation: Looks older than stated age - Affect Affect: Broad - Motor Activity Motor Activity: Calm - Reliability in Providing Information Reliability in Providing Information: Fair - Speech Speech: Organized - Mood Mood: Neutral - Formal Thought Process Formal Thought Process: No Impairment - Obsessions/Compulsions Obsessions: No Compulsions: No - Cognitive Functions Orientation: Person, Place, Situation, Time Sensorium: Alert Attention/Concentration: Attentive Abstract Thinking: [place] DSM 5 DX - DSM 5 DSM 5 Diagnosis: Opioid Use Disorder, severe - Recommended/Plan of Treatment Treatment Recommendations and Plan of Treatment: Patient is currently not exhibiting withdrawal symptoms from heroin. Patient is on morphine for pain and does not need methadone at this time. Discussed with medical team. Pt psychiatrically stable and clear.
--- NOTE | 2018-03-05 13:58 | CP.PCM.PN ---
Subjective - Date & Time of Evaluation Date of Evaluation: 03/05/18 Time of Evaluation: 07:30 - Subjective Subjective: Patient seen and examined at bedside this AM. No adverse events overnight. Patient denies nausea or vomiting or fevers but has some abdominal pain well controlled with current medications Objective - Vital Signs/Intake and Output Vital Signs (last 24 hours): Temp Pulse Resp BP Pulse Ox 97.8 F 73 20 125/80 97 03/05/18 07:45 03/05/18 07:45 03/05/18 07:45 03/05/18 07:45 03/05/18 07:45 Intake and Output: 03/05/18 03/05/18 06:59 18:59 Intake Total 0 Balance 0 - Medications Medications: Current Medications Acetaminophen (Tylenol 325mg Tab) 650 mg PO Q6 PRN PRN Reason: Pain, moderate (4-7) Albuterol/Ipratropium (Duoneb 3 Mg/0.5 Mg (3 Ml) Ud) 3 ml INH RQ2 PRN PRN Reason: Shortness of Breath Albuterol/Ipratropium (Duoneb 3 Mg/0.5 Mg (3 Ml) Ud) 3 ml INH RQ4 [facility] Last Admin: 03/05/18 11:21 Dose: 3 ml Methylprednisolone (Solu-Medrol) 40 mg IVP Q6 [facility] Last Admin: 03/05/18 11:08 Dose: 40 mg Montelukast Sodium (Singulair) 10 mg PO DAILY [facility] Last Admin: 03/05/18 09:44 Dose: 10 mg Morphine Sulfate (Morphine) 2 mg IVP Q4H PRN PRN Reason: Pain, severe (8-10) Last Admin: 03/04/18 13:21 Dose: 2 mg Ondansetron HCl (Zofran Inj) 4 mg IVP Q6 PRN PRN Reason: Nausea/Vomiting Tiotropium [place] (Spiriva) 18 mcg IH RQ24 [facility] Last Admin: 03/05/18 08:10 Dose: 18 mcg Tobramycin Sulfate (Tobrex 0.3% Ophth Soln) 1 drop OU QID [facility] Last Admin: 03/05/18 09:44 Dose: 1 drop - Labs Labs: 03/05/18 07:00 03/05/18 07:00 PT 11.8 SECONDS (9.7-12.2) 03/04/18 06:19 INR 1.1 03/04/18 06:19 APTT 33 SECONDS (21-34) 03/04/18 06:19 - Constitutional Appears: Well, Non-toxic, No Acute Distress - Head Exam Head Exam: ATRAUMATIC, NORMOCEPHALIC - Eye Exam Eye Exam: Normal appearance. absent: Conjunctival injection, Scleral icterus - ENT Exam ENT Exam: Mucous Membranes Moist, Normal Oropharynx - Respiratory Exam Respiratory Exam: NORMAL BREATHING PATTERN. absent: Accessory Muscle Use, Respiratory Distress - Cardiovascular Exam Cardiovascular Exam: RRR - GI/Abdominal Exam GI & Abdominal Exam: Soft, Tenderness (to palpation over the hernia). absent: Distended - Neurological Exam Neurological Exam: Alert, Awake, Oriented x3 - Psychiatric Exam Psychiatric exam: Normal Affect, Normal Mood - Skin Skin Exam: Dry, Intact, Normal Color, Warm Assessment and Plan - Assessment and Plan (Free Text) Assessment: 52 M with incarcerated umbilical hernia Plan: Patient was scheduled for OR for umbilical hernia repair but needed pre-op pulmonary risk stratification. Patient has been seen by Dr. Womack--recs appreciated. Plan for OR tomorrow for umbilical hernia repair with mesh PRN pain medication May resume diet--NPO and IVF after midnight Discussed with Dr. Neftaly Crabtree, PGY2
--- NOTE | 2018-03-05 15:40 | CP.PCM.PN ---
Subjective - Date & Time of Evaluation Date of Evaluation: 03/05/18 Time of Evaluation: 07:45 - Subjective Subjective: Patient seen and examined at bedside. Patient resting comfortably in bed with no new complaints at this time. Patient is concerned about withdrawal however patient is currently on morphine and will likely not need methadone per psych team. Patient says he is breathing much better today. Patient is still having some abdominal pain but otherwise denies fever, chills, chest pain, SOB, palpitations, cough, n/v/d/c, and calf pain. Objective - Vital Signs/Intake and Output Vital Signs (last 24 hours): Temp Pulse Resp BP Pulse Ox 97.8 F 73 20 125/80 97 03/05/18 07:45 03/05/18 07:45 03/05/18 07:45 03/05/18 07:45 03/05/18 07:45 Intake and Output: 03/05/18 03/05/18 06:59 18:59 Intake Total 0 Balance 0 - Medications Medications: Current Medications Acetaminophen (Tylenol 325mg Tab) 650 mg PO Q6 PRN PRN Reason: Pain, moderate (4-7) Albuterol/Ipratropium (Duoneb 3 Mg/0.5 Mg (3 Ml) Ud) 3 ml INH RQ2 PRN PRN Reason: Shortness of Breath Albuterol/Ipratropium (Duoneb 3 Mg/0.5 Mg (3 Ml) Ud) 3 ml INH RQ4 [facility] Last Admin: 03/05/18 11:21 Dose: 3 ml Lactated Ringer's (Lactated Ringer's) 1,000 mls @ 100 mls/hr IV .Q10H [facility] Methylprednisolone (Solu-Medrol) 40 mg IVP Q6 [facility] Last Admin: 03/05/18 11:08 Dose: 40 mg Montelukast Sodium (Singulair) 10 mg PO DAILY [facility] Last Admin: 03/05/18 09:44 Dose: 10 mg Morphine Sulfate (Morphine) 2 mg IVP Q4H PRN PRN Reason: Pain, severe (8-10) Last Admin: 03/04/18 13:21 Dose: 2 mg Ondansetron HCl (Zofran Inj) 4 mg IVP Q6 PRN PRN Reason: Nausea/Vomiting Tiotropium [place] (Spiriva) 18 mcg IH RQ24 [facility] Last Admin: 03/05/18 08:10 Dose: 18 mcg Tobramycin Sulfate (Tobrex 0.3% Ophth Soln) 1 drop OU QID [facility] Last Admin: 03/05/18 09:44 Dose: 1 drop - Labs Labs: 03/05/18 07:00 03/05/18 07:00 PT 11.8 SECONDS (9.7-12.2) 03/04/18 06:19 INR 1.1 03/04/18 06:19 APTT 33 SECONDS (21-34) 03/04/18 06:19 - Constitutional Appears: Non-toxic, No Acute Distress - Head Exam Head Exam: ATRAUMATIC, NORMAL INSPECTION, NORMOCEPHALIC - Eye Exam Eye Exam: EOMI, Normal appearance, PERRL Pupil Exam: NORMAL ACCOMODATION, PERRL - ENT Exam ENT Exam: Mucous Membranes Moist, Normal Exam - Neck Exam Neck Exam: Full ROM, Normal Inspection. absent: Lymphadenopathy - Respiratory Exam Respiratory Exam: Clear to Ausculation Bilateral, NORMAL BREATHING PATTERN - Cardiovascular Exam Cardiovascular Exam: REGULAR RHYTHM, +S1, +S2. absent: Murmur - GI/Abdominal Exam GI & Abdominal Exam: Soft, Tenderness (paraumbilical tenderness noted ), Normal Bowel Sounds. absent: Distended, Rigid - Extremities Exam Extremities Exam: Full ROM, Normal Capillary Refill, Normal Inspection. absent : Joint Swelling, Pedal Edema - Back Exam Back Exam: NORMAL INSPECTION - Neurological Exam Neurological Exam: Alert, Awake, Oriented x3 - Psychiatric Exam Psychiatric exam: Normal Affect, Normal Mood - Skin Skin Exam: Dry, Intact, Normal Color, Warm Assessment and Plan - Assessment and Plan (Free Text) Plan: Disposition: Patient is for OR tomorrow with a moderate risk due to asthma/COPD (per Dr. Womack - pulm). Patient otherwise clear for surgery from a medical standpoint as patient has no cardiac or other medical history. Patient should take duoneb treatment prior to going to the OR. Respiratory Acidosis with History of Asthma and Underlying COPD * Trop negative * BNP: 113 * Dr. Womack consulted for OR clearance * Continue Singulair * Continue Spiriva * Duonebs Q2H PRN and Q4H RJ * Solumedrol 40 mg Q6H Incarcerated Umbilical Hernia * CT abd/pel: incarcerated umbilical hernia with possible strangulation * Dr. Higginbotham consulted (Gen Surg) * plan for OR tomorrow since patient was not cleared in time to go today * Full liquid diet, NPO after midnight * Hold DVT PPX * f/u blood culture * Zofran PRN nausea Heroine use * Dr. Ritchie consulted (psych) for possible methadone after surgery * UDS: +opiates and cocaine * Monitor for withdrawal symptoms Prophylactic Measures * GI: not indicated * DVT: SCDs, hold heparin
[2018-03-06] MEDS: Albuterol-Ipratrop 3 mg / 0.5 (3 ml) UD INH SCH ×6 (00:44→19:20)
[2018-03-06] MEDS: Lactated Ringer's 1,000 ML IV SCH ×3 (01:00→20:10)
[2018-03-06] MEDS: MethylPREDNISolone 40 mg Vial IVP SCH ×5 (05:20→17:20)
[2018-03-06] MEDS: Tiotropium 18 mcg Cap For Inhalation IH SCH (07:05)
--- NOTE | 2018-03-06 07:30 | CP.PCM.PN ---
<Sarah Miller - Last Filed: 03/06/18 16:56> Subjective - Date & Time of Evaluation Date of Evaluation: 03/06/18 Time of Evaluation: 07:28 - Subjective Subjective: Patient seen and examined at bedside. Patient resting in bed complaining of chest pain that he thinks is heart burn. He describes it as a burning pressure sensation and it radiates to his throat. Patient otherwise denies fever, chills , SOB, palpitations, cough, sour taste in mouth, n/v/d/c, and calf pain. Objective - Vital Signs/Intake and Output Vital Signs (last 24 hours): Temp Pulse Resp BP Pulse Ox 98.4 F 101 H 20 130/81 96 03/06/18 00:00 03/06/18 00:00 03/06/18 00:00 03/05/18 16:00 03/06/18 00:00 Intake and Output: 03/06/18 03/06/18 06:59 18:59 Intake Total 300 Balance 300 - Medications Medications: Current Medications Acetaminophen (Tylenol 325mg Tab) 650 mg PO Q6 PRN PRN Reason: Pain, moderate (4-7) Albuterol/Ipratropium (Duoneb 3 Mg/0.5 Mg (3 Ml) Ud) 3 ml INH RQ2 PRN PRN Reason: Shortness of Breath Albuterol/Ipratropium (Duoneb 3 Mg/0.5 Mg (3 Ml) Ud) 3 ml INH RQ4 RJ Last Admin: 03/06/18 07:05 Dose: 3 ml Lactated Ringer's (Lactated Ringer's) 1,000 mls @ 100 mls/hr IV .Q10H RJ Last Admin: 03/06/18 01:00 Dose: 100 mls/hr Methylprednisolone (Solu-Medrol) 40 mg IVP Q6 RJ Last Admin: 03/06/18 05:20 Dose: 40 mg Montelukast Sodium (Singulair) 10 mg PO DAILY RJ Last Admin: 03/05/18 09:44 Dose: 10 mg Morphine Sulfate (Morphine) 2 mg IVP Q4H PRN PRN Reason: Pain, severe (8-10) Last Admin: 03/04/18 13:21 Dose: 2 mg Ondansetron HCl (Zofran Inj) 4 mg IVP Q6 PRN PRN Reason: Nausea/Vomiting Tiotropium [place] (Spiriva) 18 mcg IH RQ24 [facility] Last Admin: 03/06/18 07:05 Dose: 18 mcg Tobramycin Sulfate (Tobrex 0.3% Ophth Soln) 1 drop OU QID [facility] Last Admin: 03/05/18 17:59 Dose: 1 drop - Labs Labs: 03/05/18 07:00 03/05/18 07:00 PT 11.8 SECONDS (9.7-12.2) 03/04/18 06:19 INR 1.1 03/04/18 06:19 APTT 33 SECONDS (21-34) 03/04/18 06:19 - Additional Findings Additional findings: - Constitutional Appears: Non-toxic, No Acute Distress - Head Exam Head Exam: ATRAUMATIC, NORMAL INSPECTION, NORMOCEPHALIC - Eye Exam Eye Exam: EOMI, Normal appearance, PERRL Pupil Exam: NORMAL ACCOMODATION, PERRL - ENT Exam ENT Exam: Mucous Membranes Moist, Normal Exam - Neck Exam Neck Exam: Full ROM, Normal Inspection. absent: Lymphadenopathy - Respiratory Exam Respiratory Exam: Clear to Ausculation Bilateral, NORMAL BREATHING PATTERN - Cardiovascular Exam Cardiovascular Exam: REGULAR RHYTHM, +S1, +S2. absent: Murmur - GI/Abdominal Exam GI & Abdominal Exam: Umbilical hernia, Soft, Tenderness (paraumbilical tenderness noted ), Normal Bowel Sounds. absent: Distended, Rigid - Extremities Exam Extremities Exam: Full ROM, Normal Capillary Refill, Normal Inspection. absent : Joint Swelling, Pedal Edema - Back Exam Back Exam: NORMAL INSPECTION - Neurological Exam Neurological Exam: Alert, Awake, Oriented x3 - Psychiatric Exam Psychiatric exam: Normal Affect, Normal Mood - Skin Skin Exam: Dry, Intact, Normal Color, Warm Assessment and Plan - Assessment and Plan (Free Text) Plan: Disposition: Patient is for repair of umbilical hernia today with a moderate risk due to asthma/COPD (per Dr. Womack - pulm). Patient otherwise clear for surgery from a medical standpoint as patient has no cardiac or other medical history. UPDATE: Patient is clear for discharge from surgery and medical standpoint. He will be discharged to detox pending bed availability. Respiratory Acidosis with History of Asthma and Underlying COPD * Trop negative * BNP: 113 * Dr. Womack consulted for OR clearance * Continue Singulair * Continue Spiriva * Duonebs Q2H PRN and Q4H RJ * Solumedrol 40 mg Q6H Incarcerated Umbilical Hernia * CT abd/pel: incarcerated umbilical hernia with possible strangulation * Dr. Higginbotham consulted (Gen Surg) * plan for OR today * Full liquid diet, NPO after midnight * Hold DVT PPX * f/u blood culture * Zofran PRN nausea Heroine use * Dr. Ritchie consulted (psych) for possible methadone after surgery * UDS: +opiates and cocaine * Monitor for withdrawal symptoms Chest Pain likely secondary to GERD * EKG (03/06): no evidence of ischemia * Protonix 40 mg daily Prophylactic Measures * DVT: SCDs, hold heparin <Jonathan Bray - Last Filed: 03/06/18 19:11> Objective - Vital Signs/Intake and Output Vital Signs (last 24 hours): Temp Pulse Resp BP Pulse Ox 98.3 F 98 H 20 129/78 93 L 03/06/18 16:00 03/06/18 16:00 03/06/18 16:00 03/06/18 16:00 03/06/18 16:00 Intake and Output: 03/06/18 03/07/18 18:59 06:59 Intake Total 1440 Balance 1440 - Medications Medications: Current Medications Acetaminophen (Tylenol 325mg Tab) 650 mg PO Q6 PRN PRN Reason: Pain, Mild (1-3) Albuterol/Ipratropium (Duoneb 3 Mg/0.5 Mg (3 Ml) Ud) 3 ml INH RQ2 PRN PRN Reason: Shortness of Breath Albuterol/Ipratropium (Duoneb 3 Mg/0.5 Mg (3 Ml) Ud) 3 ml INH RQ4 RJ Last Admin: 03/06/18 16:15 Dose: 3 ml Lactated Ringer's (Lactated Ringer's) 1,000 mls @ 100 mls/hr IV .Q10H RJ Last Admin: 03/06/18 10:34 Dose: Not Given Methylprednisolone (Solu-Medrol) 40 mg IVP Q6 RJ Last Admin: 03/06/18 17:20 Dose: 40 mg Montelukast Sodium (Singulair) 10 mg PO DAILY RJ Last Admin: 03/06/18 10:35 Dose: Not Given Ondansetron HCl (Zofran Inj) 4 mg IVP Q6 PRN PRN Reason: Nausea/Vomiting Pantoprazole Sodium (Protonix Ec Tab) 40 mg PO DAILY [facility] Last Admin: 03/06/18 10:35 Dose: Not Given Tiotropium [place] (Spiriva) 18 mcg IH RQ24 [facility] Last Admin: 03/06/18 07:05 Dose: 18 mcg Tobramycin Sulfate (Tobrex 0.3% Ophth Soln) 1 drop OU QID [facility] Last Admin: 03/06/18 13:53 Dose: Not Given Tramadol HCl (Ultram) 50 mg PO Q6H PRN PRN Reason: Pain, moderate (4-7) - Labs Labs: 03/06/18 07:43 03/06/18 07:43 PT 11.8 SECONDS (9.7-12.2) 03/04/18 06:19 INR 1.1 03/04/18 06:19 APTT 33 SECONDS (21-34) 03/04/18 06:19 Attending/Attestation - Attestation I have personally seen and examined this patient.: Yes I have fully participated in the care of the patient.: Yes I have reviewed all pertinent clinical information, including history, physical exam and plan: Yes Notes (Text): 03/06/18 19:07 Patient was seen and examined at 2:30 PM Exam, assessment and plan were gone over with the resident. Also on ROS: Mild abdominal pain NO bowel movement yet Passing flatus NO N/V NO other complaints Also on exam: Abdominal incision site with packing Extensive conversation with patient concerning proper pain medication use with the presence of his brother and this was ok with patient. He will only ask for pain medication should the level be where he is in intense pain. Medicine Team please speak with Surgical Team concerning the packing that was noted on the Surgical Site and this is ok. Attempt was made to transfer to inpatient psyche for detox however no bed available: Medicine Team speak with Psychiatry on morning 03/07/18. Jonathan Bray D.O.
[2018-03-06 07:51] LABS: BASO % 0.1 % (0.0-2.0); HEMOGLOBIN 13.2 g/dL (12.0-18.0); LYMPH # 0.4 K/uL (1.0-4.3); LYMPH % 3.9 % (20.0-40.0); MEAN CELL VOLUME 81.7 fL (80.0-94.0); MEAN CORPUSCULAR HEMOGLOBIN 27.6 pg (27.0-31.0); MEAN CORPUSCULAR HGB CONC 33.8 g/dL (33.0-37.0); MEAN PLATELET VOLUME 7.9 fL (7.2-11.7); MONO # 0.1 K/uL (0.0-0.8); MONO % 1.2 % (0.0-10.0); NEUT # 10.6 K/uL (1.8-7.0); NEUT % 94.8 % (50.0-75.0); PLATELET COUNT 200 K/uL (130-400); RBC 4.76 Mil/uL (4.40-5.90); RED CELL DISTRIBUTION WIDTH 15.4 % (11.5-14.5)
[2018-03-06 07:55] LABS: WHITE BLOOD COUNT 11.2 K/uL (4.8-10.8)
[2018-03-06 08:16] LABS: ALB/GLOB RATIO 0.9 (1.0-2.1); ALBUMIN 3.5 g/dL (3.5-5.0); ALT/SGPT 17 U/L (21-72); AST/SGOT 20 U/L (17-59); BLOOD UREA NITROGEN 22 mg/dL (9-20); CALCIUM 8.6 mg/dl (8.6-10.4); GFR AFRICAN-AMERICAN > 60; GFR NON-AFRICAN AMERICAN > 60
[2018-03-06 09:34] LABS: LYMPHOCYTE 5 % (20-40); MONOCYTE 1 % (0-10); NEUTROPHIL 94 % (50-75); PLATELET ESTIMATE NORMAL (NORMAL); TOTAL CELLS COUNTED 100
[2018-03-06] MEDS ORDERED: Bupivacaine HCl 0.5% PF (30 ml) Inj EPI ONE (09:42)
[2018-03-06] MEDS ORDERED: Propofol 10 mg/ml Inj (20 ML) ONE (09:50)
[2018-03-06] MEDS ORDERED: Midazolam 2 MG/2 ML VIAL ONE (09:50)
[2018-03-06] MEDS ORDERED: Rocuronium 10 mg/ml (5 ml) ONE (09:53)
[2018-03-06] MEDS ORDERED: ceFAZolin 1 gm in NS 1 GM/100 ML BAG IVPB ONE (09:53)
[2018-03-06] MEDS ORDERED: Pneumococcal 23-Valent Vaccine IM ONE (10:00)
[2018-03-06] MEDS: Tobramycin 0.3% OPHT SOLN OU SCH ×5 (10:35→22:26)
[2018-03-06] MEDS: Pantoprazole 40 mg EC Tab PO SCH (10:35)
[2018-03-06] MEDS ORDERED: Neostigmine Methylsulfate 3mg/3ml Syringe IV ONE (10:35)
[2018-03-06] MEDS ORDERED: Labetalol 25mg/5ml Syringe ONE (11:01)
[2018-03-06] MEDS ORDERED: Labetalol 25mg/5ml Syringe IVP PRN (11:06)
[2018-03-06] MEDS ORDERED: HYDROmorphone 0.5 mg/0.5 ml ISec IVP PRN (11:06)
--- NOTE | 2018-03-06 11:09 | PCM.SURG1 ---
Surgeon's Initial Post Op Note - Surgeon's Notes Surgeon: Dr. Higginbotham Patrol Commander: Dr. Sims PGY3; Howard York OMS III Type of Anesthesia: General Endo Pre-Operative Diagnosis: Incarcerated Umbilical hernia Operative Findings: incarcerated umbilical hernia with strangulation of omentum Post-Operative Diagnosis: same Operation Performed: Primary Repair of Incarcerated Umbilical Hernia Specimen/Specimens Removed: hernia sac w/ omentum Estimated Blood Loss: EBL {In ML}: 10 Blood Products Given: N/A Drains Used: No Drains Post-Op Condition: Good Date of Surgery/Procedure: 03/06/18 Time of Surgery/Procedure: 11:08
[2018-03-06] MEDS: Morphine 4 MG/ML VIAL IVP PRN (12:43)
--- NOTE | 2018-03-06 14:00 | CP.PCM.PN ---
Subjective - Date & Time of Evaluation Date of Evaluation: 03/06/18 Time of Evaluation: 09:00 - Subjective Subjective: Patient seen and examined before being transported to the OR for hernia repair surgery. No shortness of breath, wheezing or cough today. 1. Hx of COPD - ABG 03/05 7.41/49/107/29, - Solumedrol as ordered, cont nebulizer treatment Objective - Vital Signs/Intake and Output Vital Signs (last 24 hours): Temp Pulse Resp BP Pulse Ox 99.0 F 80 11 L 119/72 99 03/06/18 12:15 03/06/18 12:15 03/06/18 12:15 03/06/18 12:15 03/06/18 12:15 Intake and Output: 03/06/18 03/06/18 06:59 18:59 Intake Total 300 700 Balance 300 700 - Medications Medications: Current Medications Acetaminophen (Tylenol 325mg Tab) 650 mg PO Q6 PRN PRN Reason: Pain, Mild (1-3) Albuterol/Ipratropium (Duoneb 3 Mg/0.5 Mg (3 Ml) Ud) 3 ml INH RQ2 PRN PRN Reason: Shortness of Breath Albuterol/Ipratropium (Duoneb 3 Mg/0.5 Mg (3 Ml) Ud) 3 ml INH RQ4 RJ Last Admin: 03/06/18 11:32 Dose: Not Given Lactated Ringer's (Lactated Ringer's) 1,000 mls @ 100 mls/hr IV .[facility] Last Admin: 03/06/18 10:34 Dose: Not Given Methylprednisolone (Solu-Medrol) 40 mg IVP Q6 [facility] Last Admin: 03/06/18 12:52 Dose: 40 mg Montelukast Sodium (Singulair) 10 mg PO DAILY [facility] Last Admin: 03/06/18 10:35 Dose: Not Given Morphine Sulfate (Morphine) 2 mg IVP Q4H PRN PRN Reason: Pain, severe (8-10) Last Admin: 03/06/18 12:43 Dose: 2 mg Ondansetron HCl (Zofran Inj) 4 mg IVP Q6 PRN PRN Reason: Nausea/Vomiting Pantoprazole Sodium (Protonix Ec Tab) 40 mg PO DAILY [facility] Last Admin: 03/06/18 10:35 Dose: Not Given Tiotropium [place] (Spiriva) 18 mcg IH RQ24 [facility] Last Admin: 03/06/18 07:05 Dose: 18 mcg Tobramycin Sulfate (Tobrex 0.3% Ophth Soln) 1 drop OU QID [facility] Last Admin: 03/06/18 13:53 Dose: Not Given Tramadol HCl (Ultram) 50 mg PO Q6H PRN PRN Reason: Pain, moderate (4-7) - Labs Labs: 03/06/18 07:43 03/06/18 07:43 PT 11.8 SECONDS (9.7-12.2) 03/04/18 06:19 INR 1.1 03/04/18 06:19 APTT 33 SECONDS (21-34) 03/04/18 06:19 Assessment and Plan (1) COPD (chronic obstructive pulmonary disease) Status: Acute (2) Incarcerated hernia Status: Acute
--- NOTE | 2018-03-06 17:54 | OP ---
DATE: 03/06/2018 PREOPERATIVE DIAGNOSIS: Incarcerated umbilical hernia. POSTOPERATIVE DIAGNOSIS: Incarcerated umbilical hernia. PROCEDURE PERFORMED: Repair with ProLite mesh. SURGEON: Lázaro Higginbotham MD FINDINGS: There is a reducible umbilical mass containing a 1 cm defect in the fascia in the umbilicus. DESCRIPTION OF PROCEDURE: Under general anesthesia, the patient was prepared and draped in the usual sterile fashion. Marcaine with epinephrine was injected in the skin around the umbilicus and also on the fascial level. An incision was made below the umbilicus. It was carried all the way down to the fascial level, then around the sac to the other side. The sac was then from the skin with sharp dissection. The hernia sac was purplish in color, it was then incised and was removed and the defect closed with interrupted sutures of 0 Vicryl. The fascia was then closed using single interrupted of 2-0 Prolene. Bleeding was controlled with electrocautery. The wound was then closed in layers with 3-0 Vicryl sutures in the skin, subcutaneous suture with 4-0 Monocryl. Pressure dressing was applied and the procedure terminated. Estimated blood loss was 5 mL. The project construction assistant manager for this procedure was Levi. Lázaro Higginbotham MD
--- NOTE | 2018-03-06 21:16 | CARD ---
APPROVED REPORT EKG Measurement Heart [id number] <Conclusion> Normal sinus rhythm Early repolarization vs pericarditis
--- NOTE | 2018-03-06 22:05 | PCM.PYCHPN ---
Psychiatric Progress Note - Psychiatric Progress Note Patient seen today, length of contact: 15 min Patient Chief Complaint: i am withdrawing from heroin. Problems Identified/Issues Discussed: Patient seen and evaluated, chart reviewed and discussed with the nurse. Patient reports some withdrawal symptoms from heroin and he reports irritable mood and anxious mood. He denies any SI/HI/AVH. Patient remained isolated, confined and withdrawn. He is taking medication and denies any side effects. He needs more time for stabilization. Supportive therapy and psychoeducation were given. Medication Change: Yes Medical Record Reviewed: Yes Mental Status Examination - Cognitive Function Orientation: Person, Place, Situation, Time Memory: Intact Attention: WNL Concentration: Poor Association: WNL Fund of Knowledge: Poor - Mood Mood: Neutral - Affect Affect: Broad - Speech Speech: Soft - Formal Thought Process Formal Thought Process: No Impairment - Suicidal Ideation Suicidal Ideation: No - Homicidal Ideation Homicidal Ideation: No Goal/Treatment Plan - Goal/Treatment Plan Need for Continued Stay: Severe depression anxiety, Severe functional impairment Progress Toward Problem(s) and Goals/Treatment Plan: Opioid use disorder severe CBT Psychoeducation Supportive therapy, individual therapy Use [place] for abstinence Opioid withdrawal CBT Psychoeducation Supportive therapy, individual therapy Clonidine when necessary Start methadone taper when withdrawing Start prn meds - Smoking Cessation Smoking Cessation Initiated: No
[2018-03-07] MEDS: MethylPREDNISolone 40 mg Vial IVP SCH ×2 (00:28→05:24)
[2018-03-07] MEDS: Albuterol-Ipratrop 3 mg / 0.5 (3 ml) UD INH SCH ×6 (00:51→20:24)
[2018-03-07] MEDS: Lactated Ringer's 1,000 ML IV SCH (05:25)
[2018-03-07 07:13] LABS: BASO % 0.1 % (0.0-2.0); HEMOGLOBIN 13.2 g/dL (12.0-18.0); LYMPH # 0.4 K/uL (1.0-4.3); LYMPH % 4.7 % (20.0-40.0); MEAN CELL VOLUME 82.2 fL (80.0-94.0); MEAN CORPUSCULAR HEMOGLOBIN 27.6 pg (27.0-31.0); MEAN CORPUSCULAR HGB CONC 33.5 g/dL (33.0-37.0); MEAN PLATELET VOLUME 7.8 fL (7.2-11.7); MONO # 0.2 K/uL (0.0-0.8); NEUT # 8.2 K/uL (1.8-7.0); NEUT % 93.2 % (50.0-75.0); PLATELET COUNT 196 K/uL (130-400); RBC 4.79 Mil/uL (4.40-5.90); RED CELL DISTRIBUTION WIDTH 15.2 % (11.5-14.5); WHITE BLOOD COUNT 8.8 K/uL (4.8-10.8)
[2018-03-07 07:46] LABS: ALB/GLOB RATIO 0.9 (1.0-2.1); ALBUMIN 3.3 g/dL (3.5-5.0); ALT/SGPT 15 U/L (21-72); AST/SGOT 25 U/L (17-59); BLOOD UREA NITROGEN 20 mg/dL (9-20); CALCIUM 8.4 mg/dl (8.6-10.4); GFR AFRICAN-AMERICAN > 60; GFR NON-AFRICAN AMERICAN > 60
[2018-03-07] MEDS: Tiotropium 18 mcg Cap For Inhalation IH SCH (08:00)
[2018-03-07] MEDS ORDERED: Morphine 4 MG/ML VIAL IVP PRN (08:30)
--- NOTE | 2018-03-07 08:52 | CP.PCM.PN ---
Subjective - Date & Time of Evaluation Date of Evaluation: 03/07/18 Time of Evaluation: 08:49 - Subjective Subjective: Patient seen and examined at bedside. Patient resting comfortably in bed with no new complaints at this time. Patient is having some post op abdominal pain but it is well controlled on the toradol. Patient says he wants to go to detox after his stay here in the hospital. Patient says he is breathing much better now and is having no chest pain, cough, or palpitations. He denies nausea, vomiting, diarrhea, constipation, and calf pain. Objective - Vital Signs/Intake and Output Vital Signs (last 24 hours): Temp Pulse Resp BP Pulse Ox 97.9 F 87 20 154/97 H 96 03/07/18 08:00 03/07/18 08:00 03/07/18 08:00 03/07/18 08:00 03/07/18 08:00 Intake and Output: 03/07/18 03/07/18 06:59 18:59 Intake Total 1940 Balance 1940 - Medications Medications: Current Medications Acetaminophen (Tylenol 325mg Tab) 650 mg PO Q6 PRN PRN Reason: Pain, Mild (1-3) Albuterol/Ipratropium (Duoneb 3 Mg/0.5 Mg (3 Ml) Ud) 3 ml INH RQ2 PRN PRN Reason: Shortness of Breath Albuterol/Ipratropium (Duoneb 3 Mg/0.5 Mg (3 Ml) Ud) 3 ml INH RQ4 RJ Last Admin: 03/07/18 07:47 Dose: 3 ml Lactated Ringer's (Lactated Ringer's) 1,000 mls @ 100 mls/hr IV .Q10H [facility] Last Admin: 03/07/18 05:25 Dose: 100 mls/hr Methylprednisolone (Solu-Medrol) 40 mg IVP Q6 RJ Last Admin: 03/07/18 05:24 Dose: 40 mg Montelukast Sodium (Singulair) 10 mg PO HS [facility] Morphine Sulfate (Morphine) 2 mg IVP Q4 PRN PRN Reason: Pain, moderate (4-7) Ondansetron HCl (Zofran Inj) 4 mg IVP Q6 PRN PRN Reason: Nausea/Vomiting Pantoprazole Sodium (Protonix Ec Tab) 40 mg PO DAILY [facility] Last Admin: 03/06/18 10:35 Dose: Not Given Tiotropium [place] (Spiriva) 18 mcg IH RQ24 [facility] Last Admin: 03/06/18 07:05 Dose: 18 mcg Tobramycin Sulfate (Tobrex 0.3% Ophth Soln) 1 drop OU QID [facility] Last Admin: 03/06/18 22:26 Dose: Not Given Tramadol HCl (Ultram) 50 mg PO Q6H PRN PRN Reason: Pain, moderate (4-7) Last Admin: 03/07/18 05:28 Dose: 50 mg - Labs Labs: 03/07/18 07:04 03/07/18 07:04 PT 11.8 SECONDS (9.7-12.2) 03/04/18 06:19 INR 1.1 03/04/18 06:19 APTT 33 SECONDS (21-34) 03/04/18 06:19 - Constitutional Appears: Non-toxic, No Acute Distress - Head Exam Head Exam: ATRAUMATIC, NORMAL INSPECTION, NORMOCEPHALIC - Eye Exam Eye Exam: EOMI, Normal appearance, PERRL Pupil Exam: NORMAL ACCOMODATION, PERRL - ENT Exam ENT Exam: Mucous Membranes Moist, Normal Exam - Neck Exam Neck Exam: Full ROM, Normal Inspection. absent: Lymphadenopathy - Respiratory Exam Respiratory Exam: Clear to Ausculation Bilateral, NORMAL BREATHING PATTERN - Cardiovascular Exam Cardiovascular Exam: REGULAR RHYTHM, +S1, +S2. absent: Murmur - GI/Abdominal Exam GI & Abdominal Exam: Soft, Tenderness (around surgical site), Normal Bowel Sounds. absent: Distended Additional comments: Bandage over umbilicus c/d/i - Extremities Exam Extremities Exam: Full ROM, Normal Capillary Refill, Normal Inspection. absent : Joint Swelling, Pedal Edema - Back Exam Back Exam: NORMAL INSPECTION - Neurological Exam Neurological Exam: Alert, Awake, Oriented x3 - Psychiatric Exam Psychiatric exam: Normal Affect, Normal Mood - Skin Skin Exam: Dry, Normal Color, Warm Assessment and Plan - Assessment and Plan (Free Text) Plan: Disposition: Patient is s/p repair of umbilical hernia POD#1. Patient is clear for transfer to detox from a medical standpoint. Continue home meds. Medical team will sign off, please reconsult as needed. Respiratory Acidosis with History of Asthma and Underlying COPD * Trop negative * BNP: 113 * Dr. Womack consulted for OR clearance * Continue Singulair * Continue Spiriva * Duonebs Q2H PRN and Q4H RJ * Solumedrol 40 mg Q12H Incarcerated Umbilical Hernia * CT abd/pel: incarcerated umbilical hernia with possible strangulation * Dr. Higginbotham consulted (Gen Surg) * blood culture negative * Zofran PRN nausea Heroine use * Dr. Ritchie consulted (psych) for possible methadone after surgery * UDS: +opiates and cocaine * Monitor for withdrawal symptoms Chest Pain likely secondary to GERD * EKG (03/06): no evidence of ischemia * Protonix 40 mg daily Prophylactic Measures * DVT: SCDs, hold heparin
[2018-03-07] MEDS: Pantoprazole 40 mg EC Tab PO SCH (09:01)
[2018-03-07 09:26] LABS: ANISOCYTOSIS SLIGHT; LYMPHOCYTE 6 % (20-40); MONOCYTE 1 % (0-10); NEUTROPHIL 93 % (50-75); PLATELET ESTIMATE NORMAL (NORMAL); TOTAL CELLS COUNTED 100
[2018-03-07 09:27] LABS: OVALOCYTES SLIGHT
[2018-03-07] MEDS ORDERED: MethylPREDNISolone 40 mg Vial IVP SCH (10:00)
[2018-03-07] MEDS: Tobramycin 0.3% OPHT SOLN OU SCH ×4 (10:55→21:04)
--- NOTE | 2018-03-07 13:54 | PCM.PYCHPN ---
Psychiatric Progress Note - Psychiatric Progress Note Patient seen today, length of contact: 15 min Patient Chief Complaint: I want to go to the detox. ' Problems Identified/Issues Discussed: Patient seen and evaluated, chart reviewed and discussed with the nurse. Patient reports some withdrawal symptoms from heroin and he reports irritable mood and anxious mood. He denies any SI/HI/AVH. Patient remained isolated, confined and withdrawn. He is taking medication and denies any side effects. He needs more time for stabilization. Supportive therapy and psychoeducation were given. Medication Change: Yes (methaodne taper) Medical Record Reviewed: Yes Mental Status Examination - Cognitive Function Orientation: Person, Place, Situation, Time Memory: Intact Attention: WNL Concentration: WNL Association: WNL Fund of Knowledge: Poor - Mood Mood: Neutral - Affect Affect: Broad - Speech Speech: Soft - Formal Thought Process Formal Thought Process: No Impairment - Suicidal Ideation Suicidal Ideation: No - Homicidal Ideation Homicidal Ideation: No Goal/Treatment Plan - Goal/Treatment Plan Need for Continued Stay: Severe depression anxiety, Severe functional impairment Progress Toward Problem(s) and Goals/Treatment Plan: Opioid use disorder severe CBT Psychoeducation Supportive therapy, individual therapy Use [place] for abstinence Opioid withdrawal CBT Psychoeducation Supportive therapy, individual therapy Clonidine when necessary Start methadone taper when withdrawing Start prn meds Pt to transfer to the detox when get clear medically. - Smoking Cessation Smoking Cessation Initiated: No
--- NOTE | 2018-03-07 14:31 | PCM.BM ---
<Bindu Feldman - Last Filed: 03/07/18 14:29> Treatment Plan Problems - Problems identified on initial assessmt potential for opiate withdrawals Date Initiated: 03/07/18 Assessment reference: NA Status: Active Treatment assets and liabiliti Patient Assests: adapts well, cooperative, ADL independent, negotiates basic needs Patient Liabilities: substance abuse, medical problems - Milieu Protocol Maintain good personal hygiene: daily Encourage regular showers, daily Remind patient to perform daily oral care, daily Assist patient to perform ADL's Conduct patient checks and document Observation sheet: Q15 minutes Maintain personal safety: every shift Educate patient to report safety concerns to staff, every shift Monitor environment for contraband/sharps Medication safety: Monitor for expected outcome, potential side effects: every shift, Assess barriers to learning: every shift, Assess readiness for medication education: every shift Milieu Narrative: Patient is currently not exhibiting withdrawal symptoms from heroin. Patient is on morphine for pain and does not need methadone at this time. Discussed with medical team. Pt psychiatrically stable and clear. Discharge/Continuing Care - Treatment Team Participation Patient/Family/SO Statement: Patient is currently not exhibiting withdrawal symptoms from heroin. Patient is on morphine for pain and does not need methadone at this time. Discussed with medical team. Pt psychiatrically stable and clear. <Eric Dasilva - Last Filed: 03/09/18 13:25> Treatment Plan Problems - Problems identified on initial assessmt potential for opiate withdrawals Date Initiated: 03/07/18 Assessment reference: NA Status: Active - Diagnosis (1) Heroin dependence Status: Chronic Interventions: 03/09/18 13:25 * Assess 7x/week regarding severity of withdrawal * Educate regarding risks, benefits, side effects and alternatives of medications * Use Motivational Interviewing for abstinence * Use CBT for relapse prevention * Medication management for withdrawal symptoms * Encourage medication assisted treatment *
--- NOTE | 2018-03-07 18:52 | PCM.BM ---
Treatment Plan Problems - Problems identified on initial assessmt potential for opiate withdrawals Date Initiated: 03/07/18 Assessment reference: NA Status: Active potiential for autonomic instability related to alcohol withdrawal Date Initiated: 03/07/18 Time Initiated: 18:52 Assessment reference: NA Status: Active Treatment assets and liabiliti Patient Assests: adapts well, cooperative, ADL independent, negotiates basic needs Patient Liabilities: substance abuse, medical problems - Milieu Protocol Maintain good personal hygiene: daily Encourage regular showers, daily Remind patient to perform daily oral care, daily Assist patient to perform ADL's Conduct patient checks and document Observation sheet: Q15 minutes Maintain personal safety: every shift Educate patient to report safety concerns to staff, every shift Monitor environment for contraband/sharps Medication safety: Monitor for expected outcome, potential side effects: every shift, Assess barriers to learning: every shift, Assess readiness for medication education: every shift Milieu Narrative: Patient is currently not exhibiting withdrawal symptoms from heroin. Patient is on morphine for pain and does not need methadone at this time. Discussed with medical team. Pt psychiatrically stable and clear. Discharge/Continuing Care - Treatment Team Participation Patient/Family/SO Statement: Patient is currently not exhibiting withdrawal symptoms from heroin. Patient is on morphine for pain and does not need methadone at this time. Discussed with medical team. Pt psychiatrically stable and clear.
[2018-03-08] MEDS: Albuterol-Ipratrop 3 mg / 0.5 (3 ml) UD INH SCH ×5 (08:09→23:50)
[2018-03-08] MEDS: Tiotropium 18 mcg Cap For Inhalation IH SCH (08:10)
[2018-03-08] MEDS: Pantoprazole 40 mg EC Tab PO SCH (09:20)
--- NOTE | 2018-03-08 10:42 | PCM.PYCHPN ---
Psychiatric Progress Note - Psychiatric Progress Note Patient seen today, length of contact: 15 min Patient Chief Complaint: I ma withdrawing.' Problems Identified/Issues Discussed: Patient seen and evaluated, chart reviewed and discussed with the nurse. Patient reports withdrawal symptoms including nausea, cramps and sweating. He reports irritable mood but denies any feelings of hopelessness and helplessness. He denies any SI/HI/AVH. Patient remained isolated, confined and withdrawn. He is taking medication and denies any side effects. He needs more time for stabilization. Supportive therapy and psychoeducation were given. Medication Change: Yes (Methadone taper) Medical Record Reviewed: Yes Mental Status Examination - Cognitive Function Orientation: Person, Place, Situation, Time Memory: Intact Attention: WNL Concentration: WNL Association: WNL Fund of Knowledge: WNL - Mood Mood: Neutral - Affect Affect: Broad - Speech Speech: Soft - Formal Thought Process Formal Thought Process: No Impairment - Suicidal Ideation Suicidal Ideation: No - Homicidal Ideation Homicidal Ideation: No Goal/Treatment Plan - Goal/Treatment Plan Need for Continued Stay: Severe depression anxiety, Failed transitioning Progress Toward Problem(s) and Goals/Treatment Plan: Opioid use disorder severe CBT Psychoeducation Supportive therapy, individual therapy Use [place] for abstinence Opioid withdrawal CBT Psychoeducation Supportive therapy, individual therapy Clonidine when necessary Methadone taper prn meds Trazodone Neurontin - Smoking Cessation Smoking Cessation Initiated: No
[2018-03-08] MEDS: Tobramycin 0.3% OPHT SOLN OU SCH ×4 (11:18→22:01)
--- NOTE | 2018-03-08 21:36 | CARD ---
APPROVED REPORT EKG Measurement Heart [id number] <Conclusion> Sinus tachycardia Otherwise normal ECG
[2018-03-09] MEDS: Albuterol-Ipratrop 3 mg / 0.5 (3 ml) UD INH SCH ×6 (04:30→16:16)
[2018-03-09] MEDS: Tiotropium 18 mcg Cap For Inhalation IH SCH (08:07)
[2018-03-09] MEDS: Pantoprazole 40 mg EC Tab PO SCH (11:06)
[2018-03-09] MEDS: Tobramycin 0.3% OPHT SOLN OU SCH ×4 (11:18→22:33)
--- NOTE | 2018-03-09 13:51 | PCM.PYCHPN ---
Psychiatric Progress Note - Psychiatric Progress Note Patient seen today, length of contact: 15 min Patient Chief Complaint: "I am still having withdrawal symptoms." Problems Identified/Issues Discussed: The pt is seen, chart reviewed, case discussed with staff. Patient states he is still experiencing pain. He had trouble sleeping because his COPD is acting up. Support given, CBT and GA used briefly No new symptoms reported, improving slowly and needs more time No SEs from medications, risks discussed. Medication Change: Yes (Methadone taper) Medical Record Reviewed: Yes Mental Status Examination - Cognitive Function Orientation: Person, Place, Situation, Time Memory: Intact Attention: WNL Concentration: WNL Association: WNL Fund of Knowledge: WNL - Mood Mood: Neutral - Affect Affect: Broad - Speech Speech: Soft - Formal Thought Process Formal Thought Process: No Impairment - Suicidal Ideation Suicidal Ideation: No - Homicidal Ideation Homicidal Ideation: No Goal/Treatment Plan - Goal/Treatment Plan Need for Continued Stay: Severe depression anxiety, Failed transitioning Progress Toward Problem(s) and Goals/Treatment Plan: Continue medications Support and psychoeducation daily Attend groups and activities daily After care planning by SW After care discussed Patient plans to attend an outpatient program.
[2018-03-09] MEDS ORDERED: Albuterol-Ipratrop 3 mg / 0.5 (3 ml) UD INH PRN (21:15)
[2018-03-10 06:50] VITALS: TEMP 98.2
[2018-03-10] MEDS: Tiotropium 18 mcg Cap For Inhalation IH SCH (08:08)
--- NOTE | 2018-03-10 08:46 | PCM.PYCHDC ---
Mental Status Examination - Mental Status Examination Orientation: Person Memory: Intact Mood: Neutral Affect: Broad Speech: Appropriate Attention: WNL Concentration: WNL Association: WNL Fund of Knowledge: WNL Formal Thought Process: No Impairment Suicidal Ideation: No Current Homicidal Ideation?: No Discharge Summary - Discharge Note Reason for Hospitalization: Opioid Use Disorder detox Psychiatric History (includes Medical, Family, Personal Hx): Opioid Use Disorder Consultations:: List each consultation separately and include: 1. Reason for request. 2. Findings. 3. Follow-up Summary of Hospital Course include:: 1. Description of specific treatment plan utilized for patients during their course of treatmen. 2. Summarize the time- course for resolution of acute symptoms and/or regressed behaviors. 3. Describe issues identified and worked on during hospitalization. 4. Describe medication utilized. 5. Describe medical problems identified and treated. 6. Reassessment of suicide risk Summary of Hospital Course: On Admission: Patient seen, chart reviewed, and discussed with staff. This is a 52 year old male who presented to the ED on 03/04/2018 for abdominal pain and found to have an incarcerated hernia. Patient has history of opioid use disorder. Patient states he uses 3-10 bags of heroin per day; he is an IV user. Patient states he last used yesterday before coming to the hospital. Patient previously attended detox at [facility]; he states he remained sober for 1 week following discharge. His longest sobriety was for 1 year. Patient currently does not have withdrawal symptoms. He is receiving morphine for the pain; he is due to have surgery on the incarcerated hernia today. Patient states he also uses cocaine every so often. He denies alcohol use. He denies other illicit drug use, such as marijuana and painkillers. Patient denies past history of psychiatric hospitalizations. He states he currently feels depressed and anxious. He denies suicidal ideation, hallucinations, or feelings of paranoia. medical history: Asthma, COPD, Hep C psych history: Opioid Use Disorder Hospital Course: The pt was admitted and started on treatment with psychotherapy, support, psychoeducation and medications, including Methadone taper, Neurontin 100mg TID , Trazadone 50mg HS, and medications for COPD. [place] and CBT used. The pt attended groups and activities, as well as milieu therapy. Patients abdominal dressing was changed. Patient instructed to keep clean and dry. All the risks and benefits of medications are discussed and the patient understood and agreed. The pt improved with the treatments provided. After care discussed with the patient. Patient is to attend [facility]. - Final Diagnosis (DSM 5) Condition upon Discharge: IMPROVED DSM 5: Opioid Use Disorder, severe Opioid Withdrawal Disposition: HOME/ ROUTINE Follow-up Treatment Plan: Continue below medications after discharge. Follow after care plan as discussed. Use relapse prevention skills. Return to ER or call 911 if suicidal, homicidal or symptoms relapse. Stay away from stress, alcohol, and drugs. See primary doctor regularly and get labs. Prescriptions/Medication Reconciliation: Albuterol/Ipratropium [Duoneb 3 mg/0.5 mg (3 ml) UD] 3 ml INH RQ4 PRN #1 neb PRN Reason: Wheezing Montelukast Sodium [Singulair] 10 mg PO DAILY #30 tablet Pantoprazole [Protonix EC Tab] 40 mg PO DAILY #30 ect predniSONE [predniSONE Tab] 20 mg PO DAILY #30 tab Tiotropium [Spiriva] 18 mcg IH DAILY #1 cap traZODone [Desyrel] 50 mg PO HS PRN #30 tab PRN Reason: insomnia
[2018-03-10 09:39] VITALS: BP 132/91; PULSE 96; RESP 18; O2SAT 95
[2018-03-10] MEDS: Tobramycin 0.3% OPHT SOLN OU SCH (09:43)
[2018-03-10] MEDS: Pantoprazole 40 mg EC Tab PO SCH (09:49)
== END 2018-03-10 10:30 | disposition home or self-care (01) | DRG 159 ==
LOC: C.ER 05:51 → C.9E 10:34 → C.3T 11:06 → C.7D 03-07 14:21
PROVIDERS: ADMIT Internal Medicine; ATTEND Psychiatry & Neurology Psychiatry
PROC: HZ2ZZZZ Detoxification Services for Substance Abuse Treatment (ICD-10-PCS; 2018-03-04)
PROC: 0WUF0JZ Supplement Abdominal Wall with Synthetic Substitute, Open Approach (ICD-10-PCS; principal; 2018-03-06 10:00)
DX: K42.0 Umbilical hernia with obstruction, without gangrene (principal); F11.23 Opioid dependence with withdrawal; L03.115 Cellulitis of right lower limb; L03.116 Cellulitis of left lower limb; J44.1 Chronic obstructive pulmonary disease with (acute) exacerbation; F14.90 Cocaine use, unspecified, uncomplicated; F17.210 Nicotine dependence, cigarettes, uncomplicated; G89.18 Other acute postprocedural pain; K59.00 Constipation, unspecified

== ENCOUNTER 2018-05-14 05:56 | Emergency (ER) | payer MEDICAID ==
[2018-05-14 05:56] VITALS: BMI 25.0
[2018-05-14] MEDS ORDERED: Albuterol-Ipratrop 3 mg / 0.5 (3 ml) UD ONE ×2 (06:06→06:29)
--- NOTE | 2018-05-14 06:06 | C.PDOC ---
History Of Present Illness Patient presents with worsening shortness of breeath and wheezing. Patient still smokes 1 ppd. No f/c/n/v. Speaking in complete sentences. Use nebulizer at home, but still felt sob Time Seen by Provider: 05/14/18 06:05 History Per: Patient History/Exam Limitations: no limitations Onset/Duration Of Symptoms: Hrs Current Symptoms Are (Timing): Worse Associated Symptoms: Dyspnea. denies: Chest Pain Preciptating Factors: Other (smoking) Severity: Severe Pain Scale Rating Of: 7 Recent travel outside of the [place]: No Additional History Per: Patient - Asthma History Medication Use: Daily Rescue Medications: See Home Medication List Control Medications: See Home Medication List Past Medical History Reviewed: Historical Data, Nursing Documentation, Vital Signs Vital Signs: Last Vital Signs Temp 97.7 F 05/14/18 06:06 Pulse 96 H 05/14/18 06:44 Resp 16 05/14/18 06:44 BP 167/112 H 05/14/18 06:44 Pulse Ox 99 05/14/18 06:44 - Medical History PMH: Asthma, COPD Denies: Diabetes, Hepatitis, HIV, HTN, Chronic Kidney Disease, Seizures, Sexually Transmitted Disease - [facility] Procedures DETOXIFICATION SERVICES FOR SUBSTANCE ABUSE TREATMENT (03/04/18) SUPPLEMENT ABDOMINAL WALL WITH SYNTH SUB, OPEN APPROACH (03/04/18) Family History: States: No Known Family Hx - Social History Hx Tobacco Use: Yes Hx Alcohol Use: No Hx Substance Use: Yes - Immunization History Hx Tetanus Toxoid Vaccination: No Hx Influenza Vaccination: No Hx Pneumococcal Vaccination: No ED Course And Treatment - Laboratory Results Result Diagrams: 05/14/18 06:30 ECG: Interpreted By Me, Viewed By Me ECG Rhythm: Sinus Rhythm (102), Nonspecific Changes O2 Sat by Pulse Oximetry: 98 Pulse Ox Interpretation: Normal Critical Care Time - Critical Care Note Total Time (in mins): 30 Documented critical care: time excludes all time spent performing seperately billable procedures. Disposition Counseled Patient/Family Regarding: Studies Performed, Diagnosis - Disposition Disposition Time: 06:06 Condition: FAIR - Clinical Impression Clinical Impression: COPD exacerbation Physician Patient Turnover Patient Signed Over To: Praveena Telles Handoff Comments: pending labs, re-eval and dispostion
[2018-05-14] MEDS ORDERED: Albuterol-Ipratrop 3 mg / 0.5 (3 ml) UD INH STA (06:10)
[2018-05-14] MEDS ORDERED: Sodium Chloride 0.9% 1,000 ML IV ONE (06:22)
[2018-05-14] MEDS ORDERED: Sodium Chloride 0.9% 1,000 ML ONE (06:29)
[2018-05-14] MEDS: Albuterol-Ipratrop 3 mg / 0.5 (3 ml) UD IH SCH ×3 (06:30→06:50)
[2018-05-14 06:33] LABS: BASO # 0.1 K/uL (0.0-0.2); BASO % 1.2 % (0.0-2.0); EOS # 0.3 K/uL (0.0-0.7); EOS % 2.4 % (0.0-4.0); HEMOGLOBIN 15.8 g/dL (12.0-18.0); LYMPH # 2.5 K/uL (1.0-4.3); LYMPH % 22.1 % (20.0-40.0); MEAN CELL VOLUME 81.9 fL (80.0-94.0); MEAN CORPUSCULAR HEMOGLOBIN 27.8 pg (27.0-31.0); MEAN CORPUSCULAR HGB CONC 33.9 g/dL (33.0-37.0); MEAN PLATELET VOLUME 7.9 fL (7.2-11.7); MONO # 0.9 K/uL (0.0-0.8); NEUT # 7.6 K/uL (1.8-7.0); NEUT % 66.3 % (50.0-75.0); NRBC % 0.2 % (0.0-2.0); RBC 5.7 Mil/uL (4.40-5.90); RED CELL DISTRIBUTION WIDTH 15.6 % (11.5-14.5); WHITE BLOOD COUNT 11.4 K/uL (4.8-10.8)
[2018-05-14 06:44] LABS: ABG ALLEN TEST POS; ARTERIAL BLOOD GAS HCO3 30.4 mmol/L (21-28); ARTERIAL BLOOD GAS O2 SAT 100.4 % (95-98); ARTERIAL BLOOD GAS PCO2 61 mm/Hg (35-45); ARTERIAL BLOOD GAS PH 7.36 (7.35-7.45); ARTERIAL BLOOD GAS PO2 178 mm/Hg (80-100); ARTERIAL BLOOD GAS TCO2 36.4 mmol/L (22-28)
[2018-05-14 07:34] VITALS: PULSE 101
[2018-05-14] MEDS ORDERED: Albuterol 0.083% Inhal Sol (2.5 mg/3 mL) UD IH STA (07:35)
[2018-05-14] MEDS ORDERED: Albuterol 0.083% Inhal Sol (2.5 mg/3 mL) UD ONE (07:47)
[2018-05-14 08:30] LABS: ALB/GLOB RATIO 1.2 (1.0-2.1); ALBUMIN 4.1 g/dL (3.5-5.0); ALT/SGPT 27 U/L (21-72); AST/SGOT 32 U/L (17-59); BLOOD UREA NITROGEN 23 mg/dL (9-20); CALCIUM 8.9 mg/dl (8.6-10.4); GFR AFRICAN-AMERICAN > 60; GFR NON-AFRICAN AMERICAN > 60
[2018-05-14] MEDS ORDERED: Potassium Chloride 20 mEq ER Tab PO STA (08:39)
[2018-05-14] MEDS ORDERED: Potassium Chloride 20 mEq ER Tab PO ONE (09:06)
[2018-05-14 09:24] VITALS: BP 145/96; RESP 24; TEMP 98.8; O2SAT 90
--- NOTE | 2018-05-14 10:30 | RAD ---
PROCEDURE: CHEST RADIOGRAPH, 1 VIEW HISTORY: SOB COMPARISON: Comparison chest dated 03/04/2015 FINDINGS: LUNGS: Clear. PLEURA: Slight blunting left CP angle could be due to pleural thickening though tiny effusion not excluded CARDIOVASCULAR: Normal. OSSEOUS STRUCTURES: No significant abnormalities. VISUALIZED UPPER ABDOMEN: Normal. OTHER FINDINGS: None. IMPRESSION: No active disease. Slight blunting left CP angle could be due to pleural thickening versus small left effusion not
--- NOTE | 2018-05-15 23:08 | CARD ---
APPROVED REPORT EKG Measurement Heart [id number] <Conclusion> Sinus tachycardia Otherwise normal ECG
== END 2018-05-14 09:24 | disposition home or self-care (01) ==
LOC: C.ER 05:56
DX: J44.1 Chronic obstructive pulmonary disease with (acute) exacerbation (principal); F17.210 Nicotine dependence, cigarettes, uncomplicated
CPT/HCPCS: 36600; 71045; 80053; 82803; 83735; 85025; 93005; 94640; 96361; 96374; 99285; J2930; J7030

== ENCOUNTER 2018-06-16 05:52 | Observation (INO) | payer MEDICAID ==
[2018-06-16 05:52] VITALS: BMI 25.0
[2018-06-16] MEDS ORDERED: Aspirin 325 mg EC Tablets PO STA (06:06)
--- NOTE | 2018-06-16 06:06 | C.PDOC ---
History Of Present Illness patient presents with shortness of breath and some chest discomfort since yesterday. Dull ache, non radiating. Has worsening shortness of breath and wheezing. Received aspirin and ntg en route by ems. Speaking in 3-4 word sentences. Time Seen by Provider: 06/16/18 06:06 Chief Complaint (Nursing): Shortness Of Breath History Per: Patient History/Exam Limitations: no limitations Onset/Duration Of Symptoms: Days Current Symptoms Are (Timing): Still Present Initiating Event: Other Quality: Dull Exacerbating Factor(s): Exertion, Coughing Current Respiratory Medications: See Home Med List Severity: Severe Pain Scale Rating Of: 7 Associated Symptoms: Chest Pain Reports Recently: Treated By A Physician Recent travel outside of the [place]: No Additional History Per: Patient Past Medical History Reviewed: Historical Data, Nursing Documentation, Vital Signs Vital Signs: Last Vital Signs Temp 98 F 06/16/18 05:59 Pulse 90 06/16/18 05:59 Resp 24 06/16/18 06:10 BP 141/114 H 06/16/18 05:59 Pulse Ox 100 06/16/18 06:15 - Medical History PMH: Asthma, COPD Denies: Diabetes, Hepatitis, HIV, HTN, Chronic Kidney Disease, Seizures, Sexually Transmitted Disease - [facility] Procedures DETOXIFICATION SERVICES FOR SUBSTANCE ABUSE TREATMENT (03/04/18) SUPPLEMENT ABDOMINAL WALL WITH SYNTH SUB, OPEN APPROACH (03/04/18) Family History: States: No Known Family Hx - Social History Hx Tobacco Use: Yes Hx Alcohol Use: No Hx Substance Use: Yes - Immunization History Hx Tetanus Toxoid Vaccination: No Hx Influenza Vaccination: No Hx Pneumococcal Vaccination: No Review Of Systems Constitutional: Negative for: Fever, Chills Eyes: Negative for: Redness ENT: Negative for: Throat Pain Cardiovascular: Positive for: Chest Pain (with cough) Respiratory: Positive for: Shortness of Breath Gastrointestinal: Positive for: Nausea Genitourinary: Negative for: Dysuria Musculoskeletal: Negative for: Back Pain Skin: Negative for: Rash Neurological: Negative for: Weakness Psych: Negative for: Anxiety Physical Exam - Physical Exam Appears: In Acute Distress Skin: Warm, Dry Head: Normacephalic Eye(s): bilateral: Normal Inspection Oral Mucosa: Moist Neck: Supple Chest: Symmetrical Cardiovascular: Rhythm Regular Respiratory: Decreased Breath Sounds, No Rales, Rhonchi, Wheezing Gastrointestinal/Abdominal: Soft, No Tenderness, No Distention Back: Normal Inspection Extremity: Pedal Edema Extremity: Bilateral: Atraumatic, Normal Color And Temperature, Normal ROM Pulses: Left Dorsalis Pedis: Normal, Right Dorsalis Pedis: Normal Neurological/Psych: Oriented x3 Gait: Steady ED Course And Treatment - Laboratory Results Result Diagrams: 06/16/ 06:24 ECG: Interpreted By Me, Viewed By Me ECG Rhythm: Sinus Rhythm (103), Nonspecific Changes O2 Sat by Pulse Oximetry: 100 Pulse Ox Interpretation: Normal - Radiology CXR: Interpreted by Me, Viewed By Me CXR Interpretation: Yes: COPD. No: Infiltrates, Fracture, Pnemothorax Disposition Counseled Patient/Family Regarding: Studies Performed, Diagnosis - Disposition Disposition Time: 06:06 Condition: FAIR Forms: [employer] (M[place]ese) - Clinical Impression Clinical Impression: COPD exacerbation, Respiratory distress Physician Patient Turnover Patient Signed Over To: Praveena Telles Handoff Comments: pending labs, re-eval and disposition
[2018-06-16 06:28] LABS: BASO # 0.1 K/uL (0.0-0.2); BASO % 1.3 % (0.0-2.0); EOS # 0.1 K/uL (0.0-0.7); EOS % 1.1 % (0.0-4.0); HEMOGLOBIN 15.6 g/dL (12.0-18.0); LYMPH # 1.6 K/uL (1.0-4.3); LYMPH % 22.2 % (20.0-40.0); MEAN CELL VOLUME 84.2 fL (80.0-94.0); MEAN CORPUSCULAR HEMOGLOBIN 28.4 pg (27.0-31.0); MEAN CORPUSCULAR HGB CONC 33.7 g/dL (33.0-37.0); MEAN PLATELET VOLUME 7.8 fL (7.2-11.7); MONO # 0.8 K/uL (0.0-0.8); MONO % 10.7 % (0.0-10.0); NEUT # 4.5 K/uL (1.8-7.0); NEUT % 64.7 % (50.0-75.0); NRBC % 0.4 % (0.0-2.0); RBC 5.48 Mil/uL (4.40-5.90); RED CELL DISTRIBUTION WIDTH 17.8 % (11.5-14.5)
[2018-06-16 06:32] LABS: ARTERIAL BLOOD GAS HCO3 28.9 mmol/L (21-28); ARTERIAL BLOOD GAS O2 SAT 99.1 % (95-98); ARTERIAL BLOOD GAS PCO2 57 mm/Hg (35-45); ARTERIAL BLOOD GAS PH 7.36 (7.35-7.45); ARTERIAL BLOOD GAS PO2 105 mm/Hg (80-100); ARTERIAL BLOOD GAS TCO2 33.9 mmol/L (22-28)
[2018-06-16 06:36] LABS: INR 1.1; PROTHROMBIN TIME 11.7 SECONDS (9.7-12.2)
[2018-06-16 06:54] LABS: B-TYPE NATRIURETIC PEPTIDE 277 pg/mL (0-900)
[2018-06-16 06:55] LABS: ALB/GLOB RATIO 1.2 (1.0-2.1); ALBUMIN 4.1 g/dL (3.5-5.0); ALT/SGPT 64 U/L (21-72); AST/SGOT 57 U/L (17-59); BLOOD UREA NITROGEN 11 mg/dL (9-20); CALCIUM 8.9 mg/dl (8.6-10.4); GFR AFRICAN-AMERICAN > 60; GFR NON-AFRICAN AMERICAN > 60
--- NOTE | 2018-06-16 08:52 | RAD ---
Date of service: 06/16/2018 PROCEDURE: CHEST RADIOGRAPH, 1 VIEW HISTORY: SOB COMPARISON: 05/14/2018. FINDINGS: LUNGS: The lungs are well inflated and clear. PLEURA: No pneumothorax or pleural fluid seen. CARDIOVASCULAR: Normal. OSSEOUS STRUCTURES: No significant abnormalities. VISUALIZED UPPER ABDOMEN: Normal. OTHER FINDINGS: None. IMPRESSION: No active pulmonary disease.
[2018-06-16] MEDS ORDERED: Albuterol-Ipratrop 3 mg / 0.5 (3 ml) UD INH STA (08:54)
[2018-06-16] MEDS ORDERED: Albuterol 0.083% Inhal Sol (2.5 mg/3 mL) UD IH STA (08:54)
[2018-06-16 09:09] LABS: URINE BILIRUBIN NEGATIVE (NEGATIVE); URINE BLOOD NEGATIVE (NEGATIVE); URINE CLARITY Hazy (Clear); URINE COLOR Amber (YELLOW); URINE GLUCOSE (UA) NORMAL (Normal); URINE LEUKOCYTE ESTERASE NEG Leu/uL (Negative); URINE PROTEIN 1+ mg/dL (NEGATIVE)
[2018-06-16 09:22] LABS: SQUAMOUS EPITHIAL 3 /hpf (0-5); URINE CALCIUM OXALATE CRYSTALS MOD /hpf (<OCC)
[2018-06-16 09:23] LABS: URINE BACTERIA RARE (<OCC)
[2018-06-16] MEDS ORDERED: Albuterol-Ipratrop 3 mg / 0.5 (3 ml) UD ONE (09:25)
[2018-06-16] MEDS ORDERED: Albuterol 0.083% Inhal Sol (2.5 mg/3 mL) UD ONE (09:46)
[2018-06-16 12:06] LABS: BARBITURATES, UR NEGATIVE (NEGATIVE); BENZODIAZEPINES, UR NEGATIVE (NEGATIVE); PHENCYCLIDINE, UR NEGATIVE (NEGATIVE)
[2018-06-16 12:34] LABS: OPIATES, UR POSITIVE (NEGATIVE)
--- NOTE | 2018-06-16 12:38 | CARD ---
APPROVED REPORT Date of service: 06/16/2018 EKG Measurement Heart [id number] <Conclusion> Sinus tachycardia Right atrial enlargement Borderline ECG
--- NOTE | 2018-06-16 13:38 | CP.PCM.HP ---
<Sondra Moser P - Last Filed: 06/17/18 06:55> History of Present Illness - History of Present Illness History of Present Illness: H&P note for Hospitalist service. HPI: Patient is s 52 year old male with past medical history of asthma, HTN, Hepatitis C, and chronic leg swelling presents to ED complaining of worsening shortness of breath that began one day prior to arrival. Shortness of breath worsens with exertion and slightly improves with rest. Associated symptoms include worsening leg swelling for the past 2 days and intermittent non- radiating midsternal chest pain that worsens with deep breathing. Patient notes that he has a chronic dry cough. Denies fever, chills, diaphoresis, lightheadednes, nausea, vomiting, and abdominal pain. PMHx: Asthma, HTN, Hepatitis C, and leg swelling. PSHx: Hernia repair (04/2018) Allergies:NKDA Medication: albuterol HFA 0.09, Singulair 10mg once daily, Coreg 6.25 PO BID, prednisome 20mg PO daily, HCTZ 25mg PO dialy, Spiriva 18mcg daily, Protonix 40mg PO daily, Trazodone 50mg PO HS Social: cut down smoking 2ppd to 6 cigarettes per day, has smoked since 17 years old. Family Hx:father- DM; Mother- healthy, 70 years old Proxy: sister, April Churchill, [phone] Code Status: full code Present on Admission - Present on Admission Any Indicators Present on Admission: No Review of Systems - Constitutional Constitutional: absent: Chills, Fever - Cardiovascular Cardiovascular: Chest Pain, Leg Edema. absent: Lightheadedness, Orthopnea, Palpitations - Respiratory Respiratory: Cough, Dyspnea - Gastrointestinal Gastrointestinal: absent: Change in Bowel Habits, Cramping, Dyspepsia, Hematochezia - Musculoskeletal Musculoskeletal: absent: Joint Swelling, Myalgias - Neurological Neurological: absent: Behavioral Changes, Tremor Past Patient History - Infectious Disease Hx of Infectious Diseases: None - Past Medical History & Family History Past Medical History?: Yes - Past Social History Smoking Status: Light Smoker < 10 Cigarettes Daily - CARDIAC Hx Hypertension: No - PULMONARY Hx Asthma: Yes Hx Chronic Obstructive Pulmonary Disease (COPD): Yes - NEUROLOGICAL Hx Seizures: No - HEENT Hx HEENT Problems: No Other/Comment: glasses,Farsighted - RENAL Hx Chronic Kidney Disease: No - ENDOCRINE/METABOLIC Hx Endocrine Disorders: No - HEMATOLOGICAL/ONCOLOGICAL Hx Human Immunodeficiency Virus (HIV): No - INTEGUMENTARY Hx Dermatological Problems: No - MUSCULOSKELETAL/RHEUMATOLOGICAL Hx Musculoskeletal Disorders: No Hx Falls: No - GASTROINTESTINAL Hx Gastrointestinal Disorders: No Other/Comment: Umbilical Hernia - GENITOURINARY/GYNECOLOGICAL Hx Sexually Transmitted Disorders: No - PSYCHIATRIC Hx Substance Use: Yes - SURGICAL HISTORY Hx Surgeries: No - ANESTHESIA Hx Anesthesia: No Hx Anesthesia Reactions: No Hx Malignant Hyperthermia: No Meds Allergies/Adverse Reactions: Allergies Allergy/AdvReac Type Severity Reaction Status Date / Time No Known Allergies Allergy Verified 06/16/18 06:04 Physical Exam - Constitutional Appears: Well, No Acute Distress - Head Exam Head Exam: ATRAUMATIC, NORMOCEPHALIC - Eye Exam Eye Exam: EOMI, Normal appearance - ENT Exam ENT Exam: Mucous Membranes Moist - Neck Exam Neck exam: Positive for: Full Rom, Normal Inspection - Respiratory Exam Respiratory Exam: Decreased Breath Sounds, Rales (bilateral bases). absent: Clear to Auscultation Bilateral, Rhonchi, Wheezes - Cardiovascular Exam Cardiovascular Exam: REGULAR RHYTHM, +S1, +S2 - GI/Abdominal Exam GI & Abdominal Exam: Normal Bowel Sounds, Soft. absent: Distended, Firm, Guarding, Tenderness - Extremities Exam Extremities exam: Positive for: pedal edema (trace pitting edema, up to mid garcía ) - Neurological Exam Neurological exam: Alert, CN II-XII Intact, Normal Gait, Oriented x3 - Psychiatric Exam Psychiatric exam: Normal Affect, Normal Mood - Skin Skin Exam: Dry, Normal Color, Warm Results - Vital Signs Recent Vital Signs: Last Vital Signs Temp 97.4 F L 06/16/18 11:15 Pulse 83 06/16/18 11:15 Resp 20 06/16/18 11:15 BP 127/84 06/16/18 11:15 Pulse Ox 96 06/16/18 11:15 - Labs Result Diagrams: 06/16/18 06:24 06/16/18 06:24 Labs: Laboratory Results - last 24 hr 06/16/18 06/16/18 06/16/18 06:24 06:24 06:24 WBC 7.0 RBC 5.48 Hgb 15.6 Hct 46.2 MCV 84.2 D MCH 28.4 MCHC 33.7 RDW 17.8 H Plt Count 244 MPV 7.8 Neut % (Auto) 64.7 Lymph % (Auto) 22.2 Ponce % (Auto) 10.7 H Eos % (Auto) 1.1 Baso % (Auto) 1.3 Neut # (Auto) 4.5 Lymph # (Auto) 1.6 Ponce # (Auto) 0.8 Eos # (Auto) 0.1 Baso # (Auto) 0.1 PT 11.7 INR 1.1 APTT 34 Puncture Site pCO2 pO2 HCO3 ABG pH ABG Total CO2 ABG O2 Saturation ABG Base Excess Az Test ABG Potassium A-a O2 Difference Respiratory Index Glucose Lactate Vent Mode FiO2 Sodium 140 Potassium 3.8 Chloride 97 L Carbon Dioxide 33 H Anion Gap 13 BUN 11 Creatinine 0.8 Est GFR ( Amer) > 60 Est GFR (Non-Af Amer) > 60 Random Glucose 117 H Calcium 8.9 Magnesium 1.9 Total Bilirubin 1.1 AST 57 ALT 64 Alkaline Phosphatase 142 H D Troponin I < 0.0120 NT-Pro-B Natriuret Pep 277 Total Protein 7.5 Albumin 4.1 Globulin 3.4 Albumin/Globulin Ratio 1.2 Arterial Blood Potassium Urine Color Urine Clarity Urine pH Ur Specific [place] Urine Protein Urine Glucose (UA) Urine Ketones Urine Blood Urine Nitrate Urine Bilirubin Urine Urobilinogen Ur Leukocyte Esterase Urine WBC (Auto) Urine RBC (Auto) Ur Squamous Epith Cells Calcium Oxalate Crystal Urine Bacteria Urine Opiates Screen Urine Methadone Screen Ur Barbiturates Screen Ur Phencyclidine Scrn Ur Amphetamines Screen U Benzodiazepines Scrn U Oth Cocaine Metabols U Cannabinoids Screen 06/16/18 06/16/18 06/16/18 06:25 08:46 11:42 WBC RBC Hgb Hct MCV MCH MCHC RDW Plt Count MPV Neut % (Auto) Lymph % (Auto) Ponce % (Auto) Eos % (Auto) Baso % (Auto) Neut # (Auto) Lymph # (Auto) Ponce # (Auto) Eos # (Auto) Baso # (Auto) PT INR APTT Puncture Site Rb pCO2 57 H pO2 105 H HCO3 28.9 H ABG pH 7.36 ABG Total CO2 33.9 H ABG O2 Saturation 99.1 H ABG Base Excess 5.1 H Az Test Na ABG Potassium 3.3 L A-a O2 Difference 73.0 Respiratory Index 0.7 Glucose 111 H Lactate 0.7 Vent Mode Pt on nebulizer tx FiO2 35.0 Sodium 137.0 Potassium Chloride 100.0 Carbon Dioxide Anion Gap BUN Creatinine Est GFR ( Amer) Est GFR (Non-Af Amer) Random Glucose Calcium Magnesium Total Bilirubin AST ALT Alkaline Phosphatase Troponin I NT-Pro-B Natriuret Pep Total Protein Albumin Globulin Albumin/Globulin Ratio Arterial Blood Potassium 3.3 L Urine Color Rosanna Urine Clarity Hazy Urine pH 5.0 Ur Specific [place] 1.023 Urine Protein 1+ H Urine Glucose (UA) Normal Urine Ketones Negative Urine Blood Negative Urine Nitrate Negative Urine Bilirubin Negative Urine Urobilinogen 4.0 Ur Leukocyte Esterase Neg Urine WBC (Auto) 2 Urine RBC (Auto) 5 H Ur Squamous Epith Cells 3 Calcium Oxalate Crystal Mod H Urine Bacteria Rare Urine Opiates Screen Positive H Urine Methadone Screen Positive H Ur Barbiturates Screen Negative Ur Phencyclidine Scrn Negative Ur Amphetamines Screen Negative U Benzodiazepines Scrn Negative U Oth Cocaine Metabols Positive H U Cannabinoids Screen Negative Assessment & Plan - Assessment and Plan (Free Text) Plan: Shante COPD exacerbation Does not provide Hx PFTs Solumedrol 60mg Q6H Starting 8PM 06/17/18 Solumedrol 60mg Q8 PRN Spiriva 18 mcg 1 INH handihaler Singulair 10 mg PO daily PFTs as outpatient Dr. Womack, Pulm consulted. Help appreciated Midsternal Chest pain Troponins x2= negative Monitor tele- possible dc tele 06/17 Bilateral lower extremity edema-worsening Bilateral venous dopplers HCTZ 25mg PO heroine abuse Contact [facility] to confirm maintenance treatment Start methadone taper with one dose 50mg PO Last use of heroine was 06/14/18 HTN Norvasc 5mg PO daily Hold Coreg secondary to COPD and cocaine use Continue HCTZ 25 mg Hepatitis C need to follow up with already established GI as outpatient Prophylaxis Protonix 40mg Daily Heparin 5000SC Q8H SCD after doppler DVT score-3 Heart healthy diet. - Date & Time Date: 06/16/18 Time: 12:00 <Jonathan Bray - Last Filed: 06/18/18 20:46> Results - Vital Signs Recent Vital Signs: Last Vital Signs Temp 984 F H 06/18/18 15:03 Pulse 113 H 06/18/18 17:53 Resp 20 07/26/18 15:03 BP 122/74 06/18/18 15:03 Pulse Ox 97 06/18/18 17:53 - Labs Result Diagrams: 06/18/18 06:38 06/18/18 06:38 Labs: Laboratory Results - last 24 hr 06/17/18 06/18/18 06/18/18 21:21 06:13 06:38 WBC 15.4 H RBC 4.80 Hgb 13.6 Hct 40.6 MCV 84.7 MCH 28.3 MCHC 33.5 RDW 17.2 H Plt Count 184 MPV 8.0 Neut % (Auto) 92.6 H Lymph % (Auto) 4.4 L Ponce % (Auto) 2.5 Eos % (Auto) 0.0 Baso % (Auto) 0.5 Neut # (Auto) 14.3 H Lymph # (Auto) 0.7 L Ponce # (Auto) 0.4 Eos # (Auto) 0.0 Baso # (Auto) 0.1 Neutrophils % (Manual) 95 H Lymphocytes % (Manual) 4 L Monocytes % (Manual) 1 Platelet Estimate Normal Anisocytosis (manual) Slight Sodium Potassium Chloride Carbon Dioxide Anion Gap BUN Creatinine Est GFR ( Amer) Est GFR (Non-Af Amer) POC Glucose (mg/dL) 151 H 125 H Random Glucose Calcium Phosphorus Magnesium Total Bilirubin AST ALT Alkaline Phosphatase Total Protein Albumin Globulin Albumin/Globulin Ratio 06/18/18 06/18/18 06/18/18 06:38 11:56 15:42 WBC RBC Hgb Hct MCV MCH MCHC RDW Plt Count MPV Neut % (Auto) Lymph % (Auto) Ponce % (Auto) Eos % (Auto) Baso % (Auto) Neut # (Auto) Lymph # (Auto) [place] # (Auto) Eos # (Auto) Baso # (Auto) Neutrophils % (Manual) Lymphocytes % (Manual) Monocytes % (Manual) Platelet Estimate Anisocytosis (manual) Sodium 136 Potassium 4.7 Chloride 95 L Carbon Dioxide 34 H Anion Gap 12 BUN 22 H Creatinine 0.7 L Est GFR ( Amer) > 60 Est GFR (Non-Af Amer) > 60 POC Glucose (mg/dL) 132 H 121 H Random Glucose 122 H Calcium 8.7 Phosphorus 4.2 Magnesium 2.0 Total Bilirubin 0.5 AST 28 ALT 38 Alkaline Phosphatase 106 Total Protein 6.3 Albumin 3.3 L Globulin 3.0 Albumin/Globulin Ratio 1.1 Attending/Attestation - Attestation I have personally seen and examined this patient.: Yes I have fully participated in the care of the patient.: Yes I have reviewed all pertinent clinical information: Yes Notes (Text): 06/18/18 20:45 This is a late entry Patient was seen and examined on the day of admission shortly after he was brought up to his room. History, physical, assessment and plan and all orders were gone over with the resident. Jonathan Bray D.O.
[2018-06-16] MEDS: Albuterol-Ipratrop 3 mg / 0.5 (3 ml) UD INH SCH ×2 (13:43→19:28)
[2018-06-16] MEDS: MethylPREDNISolone 40 mg Vial IV SCH ×2 (13:45→20:00)
[2018-06-16] MEDS ORDERED: Albuterol-Ipratrop 3 mg / 0.5 (3 ml) UD INH SCH (14:00)
--- NOTE | 2018-06-16 15:36 | CP.PCM.CON ---
History of Present Illness - History of Present Illness History of Present Illness: reason for consultation: SOB HPI: 52 year old male patient with past medical history of asthma and COPD presented to the ED with chief complaint of shortness of breath and chest discomfort. Patient reports that he has been experiencing shortness of breath for a while but that his symptoms worsen two days ago. Patient reports chest pain during exertion when shortness of breath worsens. Patient was seen and examined at bed side. Patient found tachypneic and speaking in 3-4 sentences. Patient reports shortness of breath that increases with exertion, chest pain, and dry cough. Patient denies headaches, nausea, vomiting and diarrhea. Patient' s chest x-ray showed no active pulmonary disease. No pneumothorax or pleural fluid. ROS: Constitutional: Patient denies fever and chills. Cardiovascular: Patient denies chest pain, palpitations Respiratory: Patient reports shotness of breath, dry cough. Gastrointestinal: Patient denies nausea, vomiting, diarrhea. Neurological: AAO X3, normal speech PMHx: Asthma, COPD Social History: Patient is a smoker (2-3 cigarettes a day), denies alcohol consumption, substance abuse (heroin). Past Surgical History: Patient denies. Medications - Albuterol/ Ipratropium 3ml INH RQ6 - Methylprednisolone 60 mg IV Q8H - Fluticasone/ Salmeterol 1 puff ING RQ12 Physical Exam HEENT: Atraumatic, normocephalic, mucuous membranes moist Respiratory: Decreased breath sounds bilaterally. Positive for wheezing. Negative for rales and rhonchi. Cardiovascular: +S1/S2, regular rate and rhythm Extremities: Bilateral lower extremity edema Neurological: Alert, awake, oriented. Assessment 52 year old male patient with past medical history of asthma and COPD presented to the ED with chief complaint of shortness of breath and chest discomfort; patient's presentation consistent with COPD exacerbation. 1. COPD Exarcerbation Status: Chronic - Albuterol/ Ipratropium 3ml INH RQ6 - Methylprednisolone 60 mg IV Q8H -antibiotics Past Patient History - Infectious Disease Hx of Infectious Diseases: None - Past Medical History & Family History Past Medical History?: Yes - Past Social History Smoking Status: Light Smoker < 10 Cigarettes Daily - CARDIAC Hx Hypertension: No - PULMONARY Hx Asthma: Yes Hx Chronic Obstructive Pulmonary Disease (COPD): Yes - NEUROLOGICAL Hx Seizures: No - HEENT Hx HEENT Problems: No Other/Comment: glasses,Farsighted - RENAL Hx Chronic Kidney Disease: No - ENDOCRINE/METABOLIC Hx Endocrine Disorders: No - HEMATOLOGICAL/ONCOLOGICAL Hx Human Immunodeficiency Virus (HIV): No - INTEGUMENTARY Hx Dermatological Problems: No - MUSCULOSKELETAL/RHEUMATOLOGICAL Hx Musculoskeletal Disorders: No Hx Falls: No - GASTROINTESTINAL Hx Gastrointestinal Disorders: No Other/Comment: Umbilical Hernia - GENITOURINARY/GYNECOLOGICAL Hx Sexually Transmitted Disorders: No - PSYCHIATRIC Hx Substance Use: Yes - SURGICAL HISTORY Hx Surgeries: No - ANESTHESIA Hx Anesthesia: No Hx Anesthesia Reactions: No Hx Malignant Hyperthermia: No Meds Allergies/Adverse Reactions: Allergies Allergy/AdvReac Type Severity Reaction Status Date / Time No Known Allergies Allergy Verified 06/16/18 06:04 - Medications Medications: Current Medications Albuterol/Ipratropium (Duoneb 3 Mg/0.5 Mg (3 Ml) Ud) 3 ml INH RQ6 [facility] Stop: 06/17/18 14:00 Last Admin: 06/16/18 13:43 Dose: 3 ml Methylprednisolone (Solu-Medrol) 60 mg IV Q8H [facility] Last Admin: 06/16/18 13:45 Dose: 60 mg Fluticasone/Salmeterol (Advair Diskus 250/50) 1 puff INH RQ12 [facility] Results - Vital Signs Recent Vital Signs: Last Vital Signs Temp 97.4 F L 06/16/18 11:15 Pulse 83 06/16/18 11:15 Resp 20 06/16/18 11:15 BP 127/84 06/16/18 11:15 Pulse Ox 96 06/16/18 11:15 - Labs Result Diagrams: 06/16/18 06:24 06/16/18 06:24 Labs: Laboratory Results - last 24 hr 06/16/18 06/16/18 06/16/18 06:24 06:24 06:24 WBC 7.0 RBC 5.48 Hgb 15.6 Hct 46.2 MCV 84.2 D MCH 28.4 MCHC 33.7 RDW 17.8 H Plt Count 244 MPV 7.8 Neut % (Auto) 64.7 Lymph % (Auto) 22.2 Collier % (Auto) 10.7 H Eos % (Auto) 1.1 Baso % (Auto) 1.3 Neut # (Auto) 4.5 Lymph # (Auto) 1.6 Collier # (Auto) 0.8 Eos # (Auto) 0.1 Baso # (Auto) 0.1 PT 11.7 INR 1.1 APTT 34 Puncture Site pCO2 pO2 HCO3 ABG pH ABG Total CO2 ABG O2 Saturation ABG Base Excess Az Test ABG Potassium A-a O2 Difference Respiratory Index Glucose Lactate Vent Mode FiO2 Sodium 140 Potassium 3.8 Chloride 97 L Carbon Dioxide 33 H Anion Gap 13 BUN 11 Creatinine 0.8 Est GFR ( Amer) > 60 Est GFR (Non-Af Amer) > 60 Random Glucose 117 H Calcium 8.9 Magnesium 1.9 Total Bilirubin 1.1 AST 57 ALT 64 Alkaline Phosphatase 142 H D Troponin I < 0.0120 NT-Pro-B Natriuret Pep 277 Total Protein 7.5 Albumin 4.1 Globulin 3.4 Albumin/Globulin Ratio 1.2 Arterial Blood Potassium Urine Color Urine Clarity Urine pH Ur Specific Stout Urine Protein Urine Glucose (UA) Urine Ketones Urine Blood Urine Nitrate Urine Bilirubin Urine Urobilinogen Ur Leukocyte Esterase Urine WBC (Auto) Urine RBC (Auto) Ur Squamous Epith Cells Calcium Oxalate Crystal Urine Bacteria Urine Opiates Screen Urine Methadone Screen Ur Barbiturates Screen Ur Phencyclidine Scrn Ur Amphetamines Screen U Benzodiazepines Scrn U Oth Cocaine Metabols U Cannabinoids Screen 06/16/18 06/16/18 06/16/18 06:25 08:46 11:42 WBC RBC Hgb Hct MCV MCH MCHC RDW Plt Count MPV Neut % (Auto) Lymph % (Auto) Collier % (Auto) Eos % (Auto) Baso % (Auto) Neut # (Auto) Lymph # (Auto) Collier # (Auto) Eos # (Auto) Baso # (Auto) PT INR APTT Puncture Site Rb pCO2 57 H pO2 105 H HCO3 28.9 H ABG pH 7.36 ABG Total CO2 33.9 H ABG O2 Saturation 99.1 H ABG Base Excess 5.1 H Az Test Na ABG Potassium 3.3 L A-a O2 Difference 73.0 Respiratory Index 0.7 Glucose 111 H Lactate 0.7 Vent Mode Pt on nebulizer tx FiO2 35.0 Sodium 137.0 Potassium Chloride 100.0 Carbon Dioxide Anion Gap BUN Creatinine Est GFR ( Amer) Est GFR (Non-Af Amer) Random Glucose Calcium Magnesium Total Bilirubin AST ALT Alkaline Phosphatase Troponin I NT-Pro-B Natriuret Pep Total Protein Albumin Globulin Albumin/Globulin Ratio Arterial Blood Potassium 3.3 L Urine Color Rosanna Urine Clarity Hazy Urine pH 5.0 Ur Specific Stout 1.023 Urine Protein 1+ H Urine Glucose (UA) Normal Urine Ketones Negative Urine Blood Negative Urine Nitrate Negative Urine Bilirubin Negative Urine Urobilinogen 4.0 Ur Leukocyte Esterase Neg Urine WBC (Auto) 2 Urine RBC (Auto) 5 H Ur Squamous Epith Cells 3 Calcium Oxalate Crystal Mod H Urine Bacteria Rare Urine Opiates Screen Positive H Urine Methadone Screen Positive H Ur Barbiturates Screen Negative Ur Phencyclidine Scrn Negative Ur Amphetamines Screen Negative U Benzodiazepines Scrn Negative U Oth Cocaine Metabols Positive H U Cannabinoids Screen Negative 06/16/18 13:50 WBC RBC Hgb Hct MCV MCH MCHC RDW Plt Count MPV Neut % (Auto) Lymph % (Auto) Collier % (Auto) Eos % (Auto) Baso % (Auto) Neut # (Auto) Lymph # (Auto) Collier # (Auto) Eos # (Auto) Baso # (Auto) PT INR APTT Puncture Site pCO2 pO2 HCO3 ABG pH ABG Total CO2 ABG O2 Saturation ABG Base Excess Az Test ABG Potassium A-a O2 Difference Respiratory Index Glucose Lactate Vent Mode FiO2 Sodium Potassium Chloride Carbon Dioxide Anion Gap BUN Creatinine Est GFR ( Amer) Est GFR (Non-Af Amer) Random Glucose Calcium Magnesium Total Bilirubin AST ALT Alkaline Phosphatase Troponin I < 0.0120 NT-Pro-B Natriuret Pep Total Protein Albumin Globulin Albumin/Globulin Ratio Arterial Blood Potassium Urine Color Urine Clarity Urine pH Ur Specific Stout Urine Protein Urine Glucose (UA) Urine Ketones Urine Blood Urine Nitrate Urine Bilirubin Urine Urobilinogen Ur Leukocyte Esterase Urine WBC (Auto) Urine RBC (Auto) Ur Squamous Epith Cells Calcium Oxalate Crystal Urine Bacteria Urine Opiates Screen Urine Methadone Screen Ur Barbiturates Screen Ur Phencyclidine Scrn Ur Amphetamines Screen U Benzodiazepines Scrn U Oth Cocaine Metabols U Cannabinoids Screen
[2018-06-16] MEDS ORDERED: Methadone 40 mg Tab PO ONE (19:00)
[2018-06-16] MEDS ORDERED: Fluticasone-Salmeterol 250-50mcg Diskus INH SCH (20:00)
[2018-06-16] MEDS ORDERED: Glucagon Recombinant 1 mg Inj IM PRN (23:57)
[2018-06-16] MEDS ORDERED: Dextrose 50% SYRINGE Inj (50 ml) IV PRN (23:57)
[2018-06-17] MEDS: Albuterol-Ipratrop 3 mg / 0.5 (3 ml) UD INH SCH ×4 (01:12→20:23)
[2018-06-17] MEDS: MethylPREDNISolone 40 mg Vial IV SCH ×3 (04:51→21:34)
[2018-06-17 07:34] LABS: BASO % 0.1 % (0.0-2.0); LYMPH # 0.8 K/uL (1.0-4.3); LYMPH % 6.8 % (20.0-40.0); MEAN CELL VOLUME 84.6 fL (80.0-94.0); MEAN CORPUSCULAR HEMOGLOBIN 28.6 pg (27.0-31.0); MEAN CORPUSCULAR HGB CONC 33.8 g/dL (33.0-37.0); MEAN PLATELET VOLUME 8.1 fL (7.2-11.7); MONO # 0.2 K/uL (0.0-0.8); MONO % 1.8 % (0.0-10.0); NEUT # 10.2 K/uL (1.8-7.0); NEUT % 91.3 % (50.0-75.0); NRBC % 0.1 % (0.0-2.0); PLATELET COUNT 198 K/uL (130-400); RBC 4.88 Mil/uL (4.40-5.90); RED CELL DISTRIBUTION WIDTH 17.2 % (11.5-14.5)
[2018-06-17 07:37] LABS: WHITE BLOOD COUNT 11.1 K/uL (4.8-10.8)
[2018-06-17 07:50] LABS: ALB/GLOB RATIO 1.2 (1.0-2.1); ALBUMIN 3.5 g/dL (3.5-5.0); ALT/SGPT 49 U/L (21-72); AST/SGOT 37 U/L (17-59); BLOOD UREA NITROGEN 20 mg/dL (9-20); CALCIUM 8.8 mg/dl (8.6-10.4); GFR AFRICAN-AMERICAN > 60; GFR NON-AFRICAN AMERICAN > 60
[2018-06-17] MEDS: (Novolin R) Insulin Human Regular 100 units/ml vial SC SCH ×4 (08:25→21:50)
[2018-06-17] MEDS: Tiotropium 18 mcg Cap For Inhalation INH SCH (08:34)
[2018-06-17 08:44] LABS: BANDS 5 % (0-2); LYMPHOCYTE 8 % (20-40); MONOCYTE 1 % (0-10); NEUTROPHIL 86 % (50-75); PLATELET ESTIMATE NORMAL (NORMAL); TOTAL CELLS COUNTED 100
[2018-06-17] MEDS: Pantoprazole 40 mg EC Tab PO SCH (10:51)
[2018-06-17] MEDS: Enoxaparin 40 mg Syringe SC SCH (10:52)
--- NOTE | 2018-06-17 11:31 | VASCLAB ---
Date of service: 06/17/2018 PROCEDURE: Lower Extremity Venous Duplex Exam. HISTORY: Edema PRIORS: None. TECHNIQUE: Bilateral common femoral, femoral, popliteal and posterior tibial, peroneal and great saphenous veins were evaluated. Flow was assessed with color Doppler, compressibility, assessment of phasic flow and augmentation response. Report prepared by TONI Monreal, RVT FINDINGS: RIGHT: 1. Common Femoral Vein: 1.1. Compressibility - Fully compressible: Thrombus - None : Flow - Phasic: Augmentation -Normal: Reflux - None. 2. Femoral Vein: 2.1. Compressibility - Fully compressible: Thrombus - None : Flow - Phasic: Augmentation -Normal: Reflux - None. 3. Popliteal Vein: 3.1. Compressibility - Fully compressible: Thrombus - None : Flow - Phasic: Augmentation -Normal: Reflux - None. 4. Posterior Tibial Vein: 4.1. Compressibility - Fully compressible: Thrombus - None: Flow - Phasic: Augmentation -Normal: Reflux - None. 5. Peroneal Vein: 5.1. Compressibility - Fully compressible: Thrombus - None: Flow - Phasic: Augmentation -Normal: Reflux - None. 6. Great Saphenous Vein: 6.1. Compressibility - Fully compressible: Thrombus - None: Flow - Phasic: Augmentation - Normal: Reflux - None. LEFT: 1. Common Femoral Vein: 1.1. Compressibility - Fully compressible: Thrombus - None: Flow - Phasic: Augmentation -Normal: Reflux - None. 2. Femoral Vein: 2.1. Compressibility - Fully compressible: Thrombus - None: Flow - Phasic: Augmentation -Normal: Reflux - None. 3. Popliteal Vein: 3.1. Compressibility - Fully compressible: Thrombus - None : Flow - Phasic: Augmentation -Normal: Reflux - None. 4. Posterior Tibial Vein: 4.1. Compressibility - Fully compressible: Thrombus - None: Flow - Phasic: Augmentation -Normal: Reflux - None. 5. Peroneal Vein: 5.1. Compressibility - Fully compressible: Thrombus - None: Flow - Phasic: Augmentation -Normal: Reflux - None. 6. Great Saphenous Vein: 6.1. Compressibility - Fully compressible: Thrombus - None: Flow - Phasic: Augmentation - Normal: Reflux - None. OTHER FINDINGS: Right: None significant. Left: None significant. IMPRESSION: Right: No evidence of deep or superficial vein thrombosis of the right lower extremity. Normal valve function noted of the right side. Left: No evidence of deep or superficial vein thrombosis of the left lower extremity. Normal valve function noted of the left side.
--- NOTE | 2018-06-17 13:19 | CP.PCM.PN ---
<Kelli Pereyra - Last Filed: 06/17/18 18:28> Subjective - Date & Time of Evaluation Date of Evaluation: 06/17/18 Time of Evaluation: 13:19 - Subjective Subjective: Progress Note for Hospitalist service Patient seen and examined at bedside. He states that his breathing has improved , however states that it is worse with movement. He denies swelling in his lower extremities, however states he has some cramping in his feet. He denies chest pain, abdominal pain, nausea, vomiting, diarrhea, blood in his urine or stool. Objective - Vital Signs/Intake and Output Vital Signs (last 24 hours): Temp Pulse Resp BP Pulse Ox 97.8 F 81 20 120/84 97 06/16/18 23:10 06/17/18 04:40 06/16/18 23:10 06/16/18 23:10 06/17/18 08:10 Intake and Output: 06/17/18 06/17/18 06:59 18:59 Intake Total 120 Balance 120 - Medications Medications: Current Medications Albuterol/Ipratropium (Duoneb 3 Mg/0.5 Mg (3 Ml) Ud) 3 ml INH RQ6 [facility] Stop: 06/17/18 14:00 Last Admin: 06/17/18 13:11 Dose: 3 ml Amlodipine Besylate (Norvasc) 5 mg PO DAILY [facility] Last Admin: 06/17/18 10:52 Dose: 5 mg Dextrose (Dextrose 50% Inj) 0 ml IV STAT PRN; Protocol PRN Reason: Hypoglycemia Protocol Dextrose (Glutose 15) 0 gm PO ONCE PRN; Protocol PRN Reason: Hypoglycemia Protocol Enoxaparin Sodium (Lovenox) 40 mg SC DAILY [facility] Last Admin: 06/17/18 10:52 Dose: 40 mg Glucagon (Glucagen Diagnostic Kit) 0 mg IM STAT PRN; Protocol PRN Reason: Hypoglycemia Protocol Hydrochlorothiazide (Hydrodiuril) 25 mg PO DAILY [facility] Last Admin: 06/17/18 10:51 Dose: 25 mg Dextrose (Dextrose 5% In Water 1000 Ml) 1,000 mls @ 0 mls/hr IV .Q0M PRN; Protocol; Per Protocol PRN Reason: Hypoglycemia Protocol Insulin Human Regular (Novolin R) 0 unit SC ACHS [facility] PRN Reason: Protocol Methadone HCl (Methadone) 50 mg PO DAILY [facility] Methylprednisolone (Solu-Medrol) 60 mg IV Q8H [facility] Last Admin: 06/17/18 04:51 Dose: 60 mg Montelukast Sodium (Singulair) 10 mg PO HS [facility] Last Admin: 06/16/18 21:19 Dose: 10 mg Pantoprazole Sodium (Protonix Ec Tab) 40 mg PO DAILY [facility] Last Admin: 06/17/18 10:51 Dose: 40 mg Tiotropium [place] (Spiriva) 18 mcg INH RQ24 [facility] Last Admin: 06/17/18 08:34 Dose: 18 mcg Tiotropium [place] (Spiriva Inhalation Handihaler Device) 1 inhaler INH DAILY [facility] - Labs Labs: 06/17/18 07:11 06/17/18 07:11 PT 11.7 SECONDS (9.7-12.2) 06/16/18 06:24 INR 1.1 06/16/18 06:24 APTT 34 SECONDS (21-34) 06/16/18 06:24 - Constitutional Appears: Well, No Acute Distress - Head Exam Head Exam: ATRAUMATIC, NORMOCEPHALIC - Eye Exam Eye Exam: EOMI - ENT Exam ENT Exam: Mucous Membranes Moist - Neck Exam Neck Exam: Full ROM. absent: Tenderness - Respiratory Exam Respiratory Exam: Prolonged Expiratory Phase, Wheezes (diffuse expiratory wheezing) - Cardiovascular Exam Cardiovascular Exam: REGULAR RHYTHM, +S1, +S2 - GI/Abdominal Exam GI & Abdominal Exam: Soft, Normal Bowel Sounds. absent: Distended, Firm, Guarding, Rigid, Tenderness - Extremities Exam Extremities Exam: Normal Capillary Refill. absent: Calf Tenderness, Pedal Edema - Back Exam Back Exam: absent: CVA tenderness (L), CVA tenderness (R) - Neurological Exam Neurological Exam: Alert, Awake, Oriented x3 - Psychiatric Exam Psychiatric exam: Normal Affect, Normal Mood - Skin Skin Exam: Dry, Intact, Warm Assessment and Plan - Assessment and Plan (Free Text) Plan: Assessment/plan Likely COPD exacerbation Does not provide history of pulmonary function tests Solumedrol 60mg Q8 PRN Spiriva 18 mcg 1 INH handihaler Singulair 10 mg PO HS daily PFTs as outpatient Dr. Womack, Pulm consulted. Help appreciated. Plan for 6 minute pre and post walk O2 sat Midsternal Chest pain Troponins x3 negative Resolved Bilateral lower extremity edema-resolved Bilateral venous dopplers: negative for DVT HCTZ 25mg PO Heroine abuse [facility] contacted to confirm treatment. Methadone 50mg PO daily started Last use of heroin was 06/14/18 HTN Norvasc 5mg PO daily Hold Coreg secondary to COPD and cocaine use Continue HCTZ 25 mg PO daily Hepatitis C Follow up with established GI Dr. Stephens as outpatient Abnormal TSH TSH low 0.13 , free T4 normal 1.18 Can follow up for repeat testing in 4 weeks. Prophylaxis Protonix 40mg Daily Lovenox 40mg SC daily SCDs DVT score-3 Heart healthy diet. Case discussed with Dr. Jonathan Pereyra, PGY1 <Jonathan Bray J - Last Filed: 06/18/18 20:44> Objective - Vital Signs/Intake and Output Vital Signs (last 24 hours): Temp Pulse Resp BP Pulse Ox 984 F H 113 H 20 122/74 97 06/18/18 15:03 06/18/18 17:53 06/18/18 15:03 06/18/18 15:03 06/18/18 17:53 - Medications Medications: Current Medications Albuterol/Ipratropium (Duoneb 3 Mg/0.5 Mg (3 Ml) Ud) 3 ml INH RQ6 [facility] Last Admin: 06/18/18 19:18 Dose: 3 ml Amlodipine Besylate (Norvasc) 5 mg PO DAILY [facility] Last Admin: 06/18/18 10:20 Dose: 5 mg Dextrose (Dextrose 50% Inj) 0 ml IV STAT PRN; Protocol PRN Reason: Hypoglycemia Protocol Dextrose (Glutose 15) 0 gm PO ONCE PRN; Protocol PRN Reason: Hypoglycemia Protocol Enoxaparin Sodium (Lovenox) 40 mg SC DAILY [facility] Last Admin: 06/18/18 10:20 Dose: 40 mg Glucagon (Glucagen Diagnostic Kit) 0 mg IM STAT PRN; Protocol PRN Reason: Hypoglycemia Protocol Hydrochlorothiazide (Hydrodiuril) 25 mg PO DAILY [facility] Last Admin: 06/18/18 10:20 Dose: 25 mg Dextrose (Dextrose 5% In Water 1000 Ml) 1,000 mls @ 0 mls/hr IV .Q0M PRN; Protocol; Per Protocol PRN Reason: Hypoglycemia Protocol Insulin Human Regular (Novolin R) 0 unit SC ACHS [facility] PRN Reason: Protocol Last Admin: 06/18/18 17:10 Dose: Not Given Methadone HCl (Methadone) 50 mg PO DAILY [facility] Last Admin: 06/18/18 10:19 Dose: 50 mg Methylprednisolone (Solu-Medrol) 40 mg IV Q8H [facility] Last Admin: 06/18/18 13:46 Dose: 40 mg Montelukast Sodium (Singulair) 10 mg PO HS [facility] Last Admin: 06/17/18 21:34 Dose: 10 mg Pantoprazole Sodium (Protonix Ec Tab) 40 mg PO DAILY [facility] Last Admin: 06/18/18 10:20 Dose: 40 mg Tiotropium [place] (Spiriva) 18 mcg INH RQ24 [facility] Last Admin: 06/18/18 08:08 Dose: 18 mcg Tiotropium [place] (Spiriva Inhalation Handihaler Device) 1 inhaler INH DAILY [facility] - Labs Labs: 06/18/18 06:38 06/18/18 06:38 PT 11.7 SECONDS (9.7-12.2) 06/16/18 06:24 INR 1.1 06/16/18 06:24 APTT 34 SECONDS (21-34) 06/16/18 06:24 Attending/Attestation - Attestation I have personally seen and examined this patient.: Yes I have fully participated in the care of the patient.: Yes I have reviewed all pertinent clinical information, including history, physical exam and plan: Yes
--- NOTE | 2018-06-17 14:51 | CP.PCM.PN ---
Subjective - Date & Time of Evaluation Date of Evaluation: 06/17/18 Time of Evaluation: 12:30 - Subjective Subjective: Patient seen and examined Still complaining of shortness of breath Dry cough afebrile Objective - Vital Signs/Intake and Output Vital Signs (last 24 hours): Temp Pulse Resp BP Pulse Ox 97.8 F 81 20 120/84 97 06/16/18 23:10 06/17/18 04:40 06/16/18 23:10 06/16/18 23:10 06/17/18 08:10 Intake and Output: 06/17/18 06/17/18 06:59 18:59 Intake Total 120 Balance 120 - Medications Medications: Current Medications Amlodipine Besylate (Norvasc) 5 mg PO DAILY [facility] Last Admin: 06/17/18 10:52 Dose: 5 mg Dextrose (Dextrose 50% Inj) 0 ml IV STAT PRN; Protocol PRN Reason: Hypoglycemia Protocol Dextrose (Glutose 15) 0 gm PO ONCE PRN; Protocol PRN Reason: Hypoglycemia Protocol Enoxaparin Sodium (Lovenox) 40 mg SC DAILY [facility] Last Admin: 06/17/18 10:52 Dose: 40 mg Glucagon (Glucagen Diagnostic Kit) 0 mg IM STAT PRN; Protocol PRN Reason: Hypoglycemia Protocol Hydrochlorothiazide (Hydrodiuril) 25 mg PO DAILY [facility] Last Admin: 06/17/18 10:51 Dose: 25 mg Dextrose (Dextrose 5% In Water 1000 Ml) 1,000 mls @ 0 mls/hr IV .Q0M PRN; Protocol; Per Protocol PRN Reason: Hypoglycemia Protocol Insulin Human Regular (Novolin R) 0 unit SC [facility] PRN Reason: Protocol Last Admin: 06/17/18 12:25 Dose: Not Given Methadone HCl (Methadone) 50 mg PO DAILY [facility] Methylprednisolone (Solu-Medrol) 60 mg IV Q8H [facility] Last Admin: 06/17/18 13:38 Dose: 60 mg Montelukast Sodium (Singulair) 10 mg PO HS [facility] Last Admin: 06/16/18 21:19 Dose: 10 mg Pantoprazole Sodium (Protonix Ec Tab) 40 mg PO DAILY [facility] Last Admin: 06/17/18 10:51 Dose: 40 mg Tiotropium [place] (Spiriva) 18 mcg INH RQ24 [facility] Last Admin: 06/17/18 08:34 Dose: 18 mcg Tiotropium [place] (Spiriva Inhalation Handihaler Device) 1 inhaler INH DAILY [facility] - Labs Labs: 06/17/18 07:11 06/17/18 07:11 PT 11.7 SECONDS (9.7-12.2) 06/16/18 06:24 INR 1.1 06/16/18 06:24 APTT 34 SECONDS (21-34) 06/16/18 06:24 - Head Exam Head Exam: ATRAUMATIC, NORMOCEPHALIC - Eye Exam Eye Exam: Normal appearance - ENT Exam ENT Exam: Mucous Membranes Moist - Neck Exam Neck Exam: Normal Inspection - Respiratory Exam Respiratory Exam: Decreased Breath Sounds - Cardiovascular Exam Cardiovascular Exam: REGULAR RHYTHM - GI/Abdominal Exam GI & Abdominal Exam: Soft, Normal Bowel Sounds Assessment and Plan (1) COPD exacerbation Assessment & Plan: Switch to by mouth prednisone Continue nebulizer treatment Status: Acute (2) Drug abuse and dependence Status: Chronic
[2018-06-18] MEDS: Albuterol-Ipratrop 3 mg / 0.5 (3 ml) UD INH SCH ×4 (01:00→19:18)
[2018-06-18] MEDS: MethylPREDNISolone 40 mg Vial IV SCH ×3 (05:15→21:55)
[2018-06-18 06:47] LABS: BASO # 0.1 K/uL (0.0-0.2); BASO % 0.5 % (0.0-2.0); HEMOGLOBIN 13.6 g/dL (12.0-18.0); LYMPH # 0.7 K/uL (1.0-4.3); LYMPH % 4.4 % (20.0-40.0); MEAN CELL VOLUME 84.7 fL (80.0-94.0); MEAN CORPUSCULAR HEMOGLOBIN 28.3 pg (27.0-31.0); MEAN CORPUSCULAR HGB CONC 33.5 g/dL (33.0-37.0); MONO # 0.4 K/uL (0.0-0.8); MONO % 2.5 % (0.0-10.0); NEUT # 14.3 K/uL (1.8-7.0); NEUT % 92.6 % (50.0-75.0); NRBC % 0.1 % (0.0-2.0); PLATELET COUNT 184 K/uL (130-400); RED CELL DISTRIBUTION WIDTH 17.2 % (11.5-14.5); WHITE BLOOD COUNT 15.4 K/uL (4.8-10.8)
[2018-06-18 07:37] LABS: ALB/GLOB RATIO 1.1 (1.0-2.1); ALBUMIN 3.3 g/dL (3.5-5.0); ALT/SGPT 38 U/L (21-72); AST/SGOT 28 U/L (17-59); BLOOD UREA NITROGEN 22 mg/dL (9-20); CALCIUM 8.7 mg/dl (8.6-10.4); GFR AFRICAN-AMERICAN > 60; GFR NON-AFRICAN AMERICAN > 60
[2018-06-18] MEDS: (Novolin R) Insulin Human Regular 100 units/ml vial SC SCH ×4 (08:00→22:25)
[2018-06-18] MEDS: Tiotropium 18 mcg Cap For Inhalation INH SCH (08:08)
[2018-06-18 08:40] LABS: ANISOCYTOSIS SLIGHT; LYMPHOCYTE 4 % (20-40); MONOCYTE 1 % (0-10); NEUTROPHIL 95 % (50-75); PLATELET ESTIMATE NORMAL (NORMAL); TOTAL CELLS COUNTED 100
--- NOTE | 2018-06-18 09:33 | CP.PCM.PN ---
<Kelli Pereyra - Last Filed: 06/18/18 16:01> Subjective - Date & Time of Evaluation Date of Evaluation: 06/18/18 Time of Evaluation: 09:32 - Subjective Subjective: Progress note for Hospitalist service Patient seen and examined at bedside. He states that his breathing has improved slightly. He denies chest pain, headache, dizziness, abdominal pain, nausea, vomiting, diarrhea. He states he has been eating and drinking well. Objective - Vital Signs/Intake and Output Vital Signs (last 24 hours): Temp Pulse Resp BP Pulse Ox 97.8 F 79 18 127/87 97 06/18/18 07:10 06/18/18 07:10 06/18/18 07:10 06/18/18 07:10 06/18/18 07:10 Intake and Output: 06/18/18 06/18/18 06:59 18:59 Intake Total 120 Balance 120 - Medications Medications: Current Medications Albuterol/Ipratropium (Duoneb 3 Mg/0.5 Mg (3 Ml) Ud) 3 ml INH RQ6 [facility] Last Admin: 06/18/18 08:08 Dose: 3 ml Amlodipine Besylate (Norvasc) 5 mg PO DAILY [facility] Last Admin: 06/17/18 10:52 Dose: 5 mg Dextrose (Dextrose 50% Inj) 0 ml IV STAT PRN; Protocol PRN Reason: Hypoglycemia Protocol Dextrose (Glutose 15) 0 gm PO ONCE PRN; Protocol PRN Reason: Hypoglycemia Protocol Enoxaparin Sodium (Lovenox) 40 mg SC DAILY [facility] Last Admin: 06/17/18 10:52 Dose: 40 mg Glucagon (Glucagen Diagnostic Kit) 0 mg IM STAT PRN; Protocol PRN Reason: Hypoglycemia Protocol Hydrochlorothiazide (Hydrodiuril) 25 mg PO DAILY [facility] Last Admin: 06/17/18 10:51 Dose: 25 mg Dextrose (Dextrose 5% In Water 1000 Ml) 1,000 mls @ 0 mls/hr IV .Q0M PRN; Protocol; Per Protocol PRN Reason: Hypoglycemia Protocol Insulin Human Regular (Novolin R) 0 unit SC ACHS [facility] PRN Reason: Protocol Last Admin: 06/17/18 21:50 Dose: Not Given Methadone HCl (Methadone) 50 mg PO DAILY [facility] Last Admin: 06/17/18 17:44 Dose: 50 mg Methylprednisolone (Solu-Medrol) 60 mg IV Q8H [facility] Last Admin: 06/18/18 05:15 Dose: 60 mg Montelukast Sodium (Singulair) 10 mg PO HS [facility] Last Admin: 06/17/18 21:34 Dose: 10 mg Pantoprazole Sodium (Protonix Ec Tab) 40 mg PO DAILY [facility] Last Admin: 06/17/18 10:51 Dose: 40 mg Tiotropium [place] (Spiriva) 18 mcg INH RQ24 [facility] Last Admin: 06/18/18 08:08 Dose: 18 mcg Tiotropium [place] (Spiriva Inhalation Handihaler Device) 1 inhaler INH DAILY [facility] - Labs Labs: 06/18/18 06:38 06/18/18 06:38 PT 11.7 SECONDS (9.7-12.2) 06/16/18 06:24 INR 1.1 06/16/18 06:24 APTT 34 SECONDS (21-34) 06/16/18 06:24 - Constitutional Appears: Well, No Acute Distress - Head Exam Head Exam: ATRAUMATIC, NORMOCEPHALIC - Eye Exam Eye Exam: EOMI, PERRL. absent: Scleral icterus - ENT Exam ENT Exam: Mucous Membranes Moist - Neck Exam Neck Exam: Full ROM. absent: Tenderness - Respiratory Exam Respiratory Exam: Wheezes (faint expiratory wheezes at bases). absent: Rales, Rhonchi, Respiratory Distress, Stridor - Cardiovascular Exam Cardiovascular Exam: REGULAR RHYTHM, +S1, +S2 - GI/Abdominal Exam GI & Abdominal Exam: Soft, Normal Bowel Sounds. absent: Distended, Firm, Guarding, Rigid, Tenderness - Extremities Exam Extremities Exam: Normal Capillary Refill. absent: Calf Tenderness, Pedal Edema - Back Exam Back Exam: absent: CVA tenderness (L), CVA tenderness (R) - Neurological Exam Neurological Exam: Alert, Awake, Oriented x3 - Psychiatric Exam Psychiatric exam: Normal Affect, Normal Mood - Skin Skin Exam: Dry, Intact, Warm Assessment and Plan - Assessment and Plan (Free Text) Plan: Assessment/plan Likely COPD exacerbation Does not provide history of pulmonary function tests Duonebs Q6 Solumedrol 40mg Q8 PRN Spiriva 18 mcg 1 INH handihaler Singulair 10 mg PO HS daily PFTs as outpatient Dr. Womack, Pulm consulted. Help appreciated. Pre-walk O2 sat: 96% on RA, Post-walk O2 sat: 90% RA Continue to monitor Midsternal Chest pain Troponins x3 negative Resolved Bilateral lower extremity edema-resolved Bilateral venous dopplers: negative for DVT HCTZ 25mg PO daily Heroine abuse [facility] contacted to confirm treatment. Methadone 50mg PO daily started Last use of heroin was 06/14/18 HTN Norvasc 5mg PO daily Hold Coreg secondary to COPD and cocaine use Continue HCTZ 25 mg PO daily Hepatitis C Follow up with established GI Dr. Stephens as outpatient Abnormal TSH TSH low 0.13 , free T4 normal 1.18 Can follow up for repeat testing in 4 weeks. Prophylaxis Protonix 40mg PO Daily Lovenox 40mg SC daily SCDs DVT score-3 Heart healthy diet. Case discussed with Dr. Jonathan Pereyra, PGY1 <Jonathan Bray - Last Filed: 06/18/18 20:44> Objective - Vital Signs/Intake and Output Vital Signs (last 24 hours): Temp Pulse Resp BP Pulse Ox 984 F H 113 H 20 122/74 97 06/18/18 15:03 06/18/18 17:53 06/18/18 15:03 06/18/18 15:03 06/18/18 17:53 - Medications Medications: Current Medications Albuterol/Ipratropium (Duoneb 3 Mg/0.5 Mg (3 Ml) Ud) 3 ml INH RQ6 [facility] Last Admin: 06/18/18 19:18 Dose: 3 ml Amlodipine Besylate (Norvasc) 5 mg PO DAILY [facility] Last Admin: 06/18/18 10:20 Dose: 5 mg Dextrose (Dextrose 50% Inj) 0 ml IV STAT PRN; Protocol PRN Reason: Hypoglycemia Protocol Dextrose (Glutose 15) 0 gm PO ONCE PRN; Protocol PRN Reason: Hypoglycemia Protocol Enoxaparin Sodium (Lovenox) 40 mg SC DAILY [facility] Last Admin: 06/18/18 10:20 Dose: 40 mg Glucagon (Glucagen Diagnostic Kit) 0 mg IM STAT PRN; Protocol PRN Reason: Hypoglycemia Protocol Hydrochlorothiazide (Hydrodiuril) 25 mg PO DAILY [facility] Last Admin: 06/18/18 10:20 Dose: 25 mg Dextrose (Dextrose 5% In Water 1000 Ml) 1,000 mls @ 0 mls/hr IV .Q0M PRN; Protocol; Per Protocol PRN Reason: Hypoglycemia Protocol Insulin Human Regular (Novolin R) 0 unit SC ACHS [facility] PRN Reason: Protocol Last Admin: 06/18/18 17:10 Dose: Not Given Methadone HCl (Methadone) 50 mg PO DAILY [facility] Last Admin: 06/18/18 10:19 Dose: 50 mg Methylprednisolone (Solu-Medrol) 40 mg IV Q8H [facility] Last Admin: 06/18/18 13:46 Dose: 40 mg Montelukast Sodium (Singulair) 10 mg PO HS [facility] Last Admin: 06/17/18 21:34 Dose: 10 mg Pantoprazole Sodium (Protonix Ec Tab) 40 mg PO DAILY [facility] Last Admin: 06/18/18 10:20 Dose: 40 mg Tiotropium [place] (Spiriva) 18 mcg INH RQ24 [facility] Last Admin: 06/18/18 08:08 Dose: 18 mcg Tiotropium [place] (Spiriva Inhalation Handihaler Device) 1 inhaler INH DAILY [facility] - Labs Labs: 06/18/18 06:38 06/18/18 06:38 PT 11.7 SECONDS (9.7-12.2) 06/16/18 06:24 INR 1.1 06/16/18 06:24 APTT 34 SECONDS (21-34) 06/16/18 06:24 Attending/Attestation - Attestation I have personally seen and examined this patient.: Yes I have fully participated in the care of the patient.: Yes I have reviewed all pertinent clinical information, including history, physical exam and plan: Yes Notes (Text): 06/18/18 20:41 Patient was seen and examined at 10:15 AM Exam, assessment and plan were gone over with the resident. Also on ROS: bilateral lower leg cramps SOB has improved and did not get SOB with the 6 minute SPO2 pre and post walk Dry cough is the same and comes and goes Also on Exam: Scattered bibasilar end expiratory wheezing Expiratory phase still longer than inspiratory phase Extensive conversation with patient yesterday and today concerning his continue Heroine and Cocaine Abuse and continued cigarette smoking despite his respiratory symptoms. He will need to follow up with [facility] upon discharge. He will need to follow up with Pulmonology for PFTs to confirm COPD. If patient continues to improve then will discharge 06/19/18.
[2018-06-18] MEDS: Enoxaparin 40 mg Syringe SC SCH (10:20)
[2018-06-18] MEDS: Pantoprazole 40 mg EC Tab PO SCH (10:20)
--- NOTE | 2018-06-18 13:16 | CP.PCM.PN ---
Subjective - Date & Time of Evaluation Date of Evaluation: 06/18/18 Time of Evaluation: 10:00 - Subjective Subjective: Patient seen and examined Cough and shortness of breath improving Afebrile No chest pain Objective - Vital Signs/Intake and Output Vital Signs (last 24 hours): Temp Pulse Resp BP Pulse Ox 97.8 F 79 18 127/87 97 06/18/18 07:10 06/18/18 07:10 06/18/18 07:10 06/18/18 07:10 06/18/18 08:00 Intake and Output: 06/18/18 06/18/18 06:59 18:59 Intake Total 120 Balance 120 - Medications Medications: Current Medications Albuterol/Ipratropium (Duoneb 3 Mg/0.5 Mg (3 Ml) Ud) 3 ml INH RQ6 [facility] Last Admin: 06/18/18 08:08 Dose: 3 ml Amlodipine Besylate (Norvasc) 5 mg PO DAILY [facility] Last Admin: 06/18/18 10:20 Dose: 5 mg Dextrose (Dextrose 50% Inj) 0 ml IV STAT PRN; Protocol PRN Reason: Hypoglycemia Protocol Dextrose (Glutose 15) 0 gm PO ONCE PRN; Protocol PRN Reason: Hypoglycemia Protocol Enoxaparin Sodium (Lovenox) 40 mg SC DAILY [facility] Last Admin: 06/18/18 10:20 Dose: 40 mg Glucagon (Glucagen Diagnostic Kit) 0 mg IM STAT PRN; Protocol PRN Reason: Hypoglycemia Protocol Hydrochlorothiazide (Hydrodiuril) 25 mg PO DAILY [facility] Last Admin: 06/18/18 10:20 Dose: 25 mg Dextrose (Dextrose 5% In Water 1000 Ml) 1,000 mls @ 0 mls/hr IV .Q0M PRN; Protocol; Per Protocol PRN Reason: Hypoglycemia Protocol Insulin Human Regular (Novolin R) 0 unit SC ACHS [facility] PRN Reason: Protocol Last Admin: 06/18/18 08:00 Dose: Not Given Methadone HCl (Methadone) 50 mg PO DAILY [facility] Last Admin: 06/18/18 10:19 Dose: 50 mg Methylprednisolone (Solu-Medrol) 40 mg IV Q8H [facility] Montelukast Sodium (Singulair) 10 mg PO HS [facility] Last Admin: 06/17/18 21:34 Dose: 10 mg Pantoprazole Sodium (Protonix Ec Tab) 40 mg PO DAILY [facility] Last Admin: 06/18/18 10:20 Dose: 40 mg Tiotropium [place] (Spiriva) 18 mcg INH RQ24 [facility] Last Admin: 06/18/18 08:08 Dose: 18 mcg Tiotropium [place] (Spiriva Inhalation Handihaler Device) 1 inhaler INH DAILY [facility] - Labs Labs: 06/18/18 06:38 06/18/18 06:38 PT 11.7 SECONDS (9.7-12.2) 06/16/18 06:24 INR 1.1 06/16/18 06:24 APTT 34 SECONDS (21-34) 06/16/18 06:24 Assessment and Plan (1) COPD exacerbation Status: Acute (2) Drug abuse and dependence Status: Chronic
[2018-06-19] MEDS: Albuterol-Ipratrop 3 mg / 0.5 (3 ml) UD INH SCH ×3 (01:18→13:33)
[2018-06-19] MEDS: MethylPREDNISolone 40 mg Vial IV SCH ×2 (05:25→12:49)
[2018-06-19] MEDS: (Novolin R) Insulin Human Regular 100 units/ml vial SC SCH ×2 (07:40→12:45)
[2018-06-19 08:19] VITALS: BP 134/89; RESP 18; TEMP 98.3; O2SAT 98
[2018-06-19 08:23] VITALS: PULSE 101
[2018-06-19] MEDS: Tiotropium 18 mcg Cap For Inhalation INH SCH (08:32)
--- NOTE | 2018-06-19 08:34 | CP.PCM.PN ---
Subjective - Date & Time of Evaluation Date of Evaluation: 06/19/18 Time of Evaluation: 08:15 - Subjective Subjective: Patient was seen and examined at 8:15 AM 06/19/18 652 B Upon FULL ROS SOB is much better Cough dry is still present and comes and goes Bilateral LE mostly towards feet and ankle lower tibias: cramping that comes and goes NO dysphagia/odynopahgia NO soreness in throat NO sinus/nasal congestion NO fever/chills NO muscle aches/pains NO joint pain NO chest pain/palpations: midsternal chest pain is no longer present NO abdominal pain NO n/v/d/c NO burning pain with urination NO MICHELLE NO lightheadedness/dizziness NO paresthesias Exam: General: AAOX3, NAD HEENT: NCA, EOMI, PERRLA, NO cervical/supraclavicular/submandibular lymphadenopathy, NO pharyngeal erythema/exudate, Nasal Turbinates are nonerythematous/nonedematous, Oral Mucosa is moist Cardio: NS1 and NS2, NO M/R/G Resp: CTA B/L, NO R/R/W: NO expiratory wheezing or rales appreciated this morning GI: BSx4, Soft, NT, NO HSM, NO guarding/rebound tenderness Ext: Pulses are strong and equal, Capillary Refill is 2 seconds, NO edema of the bilateral UE and LE Neuro: CN II through XII are grossly intact Assessments: 1). Asthma/COPD Exacerbation 2). Midsternal Chest Pain 3). Bilateral LE Edema 4). Hx Heroine Abuse 5). Hx Cocaine Abuse 6). Hx Nicotine Addiction 7). Hx HTN 8). Hx Hepatitis C 9). Abnormal TSH with Normal T4 Patient's presenting complaints have improved or resolved. Today Pre 6 minute walk SPO2 is 94% and post SPO2 is 92%: patient stated that he did not experience any SOB with the walk with me and I did not observe and cough Patient is stable for discharge The following instructions were explained to patient and copy will need to be provided to patient upon discharge: 1). Schedule follow up with your Primary Care Physician Dr. Aleks Srinivasan to take place in the next 7 days. 2). Bring a copy of these instructions with you to your appointment with Dr. Aleks Srinivasan. 3). Through Dr. Aleks Srinivasan's office obtain referral to be seen by Biology Department Chair Dr. Sakina Womack with whom you should make an appointment to take place in the next 14 days. His office number is [phone]. Through Dr. Womack' s office you should have further management and evaluation of your COPD (likely Emphysema). 4). Through Dr. Aquiles Srinivasan's office you will also need to have blood work done in 4 weeks from today to recheck your thyroid hormone levels. Please dicuss this with Dr. Srinivasan upon your follow up with him. 5). You were provided with a list of locations for Narcotics Anonymous. Please pick a location near you and go. It will help save your life. 6). Call to obtain help for your cigarette addiction. If you continue to smoke, your lungs will continue to worsen. 7). You were given Methadone 50 mg once a day while you were admitted to the hospital from 06/16/18 through 06/19/18. Please follow up with [facility] on for your next Methadone dose. Please bring a copy of these instructions with you to show [facility] that you were being given Methadone. 8). The following prescriptions were given to you. Please have them filled at your pharmacy on your way home from the hospital. These are the only medications that you should be taking. Future prescriptions will need to be filled by your primary care physician: Norvasc 5 mg, 1 tablet by mouth 1 time per day (8AM), Dispense #30, NO refills HCTZ 25 mg, 1 tablet by mouth 1 time per day (2 PM), Dispense #30, NO refills Singulair 10 mg, 1 tablet by mouth 1 time per day (8 PM), Dispense #30, NO refills Spiriva 18 mcg, 2 inhalations by mouth of 1 capsule by handihaler device, Dispense #30, NO refills Albuterol 90 mcg, 2 inhalations by mouth every 6 hours ONLY as needed for sever SOB, Dispense #1, NO refills Prednisone 10 mg, 5 tablets by mouth at 8 AM on 06/20/18, 4 tablets by mouth at 8 AM on 06/21/18, 3 tablets by mouth at 8 AM on 06/22/18, 2 tablets by mouth at 8 AM on 06/23/18, 1 tablet by mouth at 8 AM on 06/24/18, Dispense #15, NO refills 9). Please take care of yourself. You are a good person. Believe in yourself. Be good to yourself. There is a lot of life out there and you have a lot to offer. Jonathan Bray D.O. Objective - Vital Signs/Intake and Output Vital Signs (last 24 hours): Temp Pulse Resp BP Pulse Ox 98.3 F 101 H 18 134/89 98 06/19/18 07:00 06/19/18 07:40 06/19/18 07:00 06/19/18 07:00 06/19/18 07:00 Intake and Output: 06/19/18 06/19/18 06:59 18:59 Intake Total 350 Balance 350 - Medications Medications: Current Medications Albuterol/Ipratropium (Duoneb 3 Mg/0.5 Mg (3 Ml) Ud) 3 ml INH RQ6 [facility] Last Admin: 06/19/18 07:45 Dose: 3 ml Amlodipine Besylate (Norvasc) 5 mg PO DAILY [facility] Last Admin: 06/18/18 10:20 Dose: 5 mg Dextrose (Dextrose 50% Inj) 0 ml IV STAT PRN; Protocol PRN Reason: Hypoglycemia Protocol Dextrose (Glutose 15) 0 gm PO ONCE PRN; Protocol PRN Reason: Hypoglycemia Protocol Enoxaparin Sodium (Lovenox) 40 mg SC DAILY [facility] Last Admin: 06/18/18 10:20 Dose: 40 mg Glucagon (Glucagen Diagnostic Kit) 0 mg IM STAT PRN; Protocol PRN Reason: Hypoglycemia Protocol Hydrochlorothiazide (Hydrodiuril) 25 mg PO DAILY [facility] Last Admin: 06/18/18 10:20 Dose: 25 mg Dextrose (Dextrose 5% In Water 1000 Ml) 1,000 mls @ 0 mls/hr IV .Q0M PRN; Protocol; Per Protocol PRN Reason: Hypoglycemia Protocol Insulin Human Regular (Novolin R) 0 unit SC ACHS [facility] PRN Reason: Protocol Last Admin: 06/18/18 22:25 Dose: Not Given Methadone HCl (Methadone) 50 mg PO DAILY [facility] Last Admin: 06/18/18 10:19 Dose: 50 mg Methylprednisolone (Solu-Medrol) 40 mg IV Q8H [facility] Last Admin: 06/19/18 05:25 Dose: 40 mg Montelukast Sodium (Singulair) 10 mg PO HS [facility] Last Admin: 06/18/18 22:50 Dose: 10 mg Pantoprazole Sodium (Protonix Ec Tab) 40 mg PO DAILY [facility] Last Admin: 06/18/18 10:20 Dose: 40 mg Tiotropium [place] (Spiriva) 18 mcg INH RQ24 [facility] Last Admin: 06/18/18 08:08 Dose: 18 mcg Tiotropium [place] (Spiriva Inhalation Handihaler Device) 1 inhaler INH DAILY [facility] - Labs Labs: 06/18/18 06:38 06/18/18 06:38 PT 11.7 SECONDS (9.7-12.2) 06/16/18 06:24 INR 1.1 06/16/18 06:24 APTT 34 SECONDS (21-34) 06/16/18 06:24
--- NOTE | 2018-06-19 09:11 | CP.PCM.DIS ---
Provider - Provider Date of Admission: 06/16/18 09:52 Attending physician: Jonathan Bray MD Consults: Pulmonology: Dr. Womack Time Spent in preparation of Discharge (in minutes): 40 Hospital Course - Lab Results Lab Results: Micro Results 06/16/18 18:15 Blood Blood Culture - Preliminary NO GROWTH AFTER 48 HOURS 06/16/18 17:45 Blood Blood Culture - Preliminary NO GROWTH AFTER 48 HOURS Most Recent Lab Values WBC 15.4 K/uL (4.8-10.8) H 06/18/18 06:38 RBC 4.80 Mil/uL (4.40-5.90) 06/18/18 06:38 Hgb 13.6 g/dL (12.0-18.0) 06/18/18 06:38 Hct 40.6 % (35.0-51.0) 06/18/18 06:38 MCV 84.7 fL (80.0-94.0) 06/18/18 06:38 MCH 28.3 pg (27.0-31.0) 06/18/18 06:38 MCHC 33.5 g/dL (33.0-37.0) 06/18/18 06:38 RDW 17.2 % (11.5-14.5) H 06/18/18 06:38 Plt Count 184 K/uL (130-400) 06/18/18 06:38 MPV 8.0 fL (7.2-11.7) 06/18/18 06:38 Neut % (Auto) 92.6 % (50.0-75.0) H 06/18/18 06:38 Lymph % (Auto) 4.4 % (20.0-40.0) L 06/18/18 06:38 Desha % (Auto) 2.5 % (0.0-10.0) 06/18/18 06:38 Eos % (Auto) 0.0 % (0.0-4.0) 06/18/18 06:38 Baso % (Auto) 0.5 % (0.0-2.0) 06/18/18 06:38 Neut # (Auto) 14.3 K/uL (1.8-7.0) H 06/18/18 06:38 Lymph # (Auto) 0.7 K/uL (1.0-4.3) L 06/18/18 06:38 Desha # (Auto) 0.4 K/uL (0.0-0.8) 06/18/18 06:38 Eos # (Auto) 0.0 K/uL (0.0-0.7) 06/18/18 06:38 Baso # (Auto) 0.1 K/uL (0.0-0.2) 06/18/18 06:38 Neutrophils % (Manual) 95 % (50-75) H 06/18/18 06:38 Band Neutrophils % 5 % (0-2) H 06/17/18 07:11 Lymphocytes % (Manual) 4 % (20-40) L 06/18/18 06:38 Monocytes % (Manual) 1 % (0-10) 06/18/18 06:38 Platelet Estimate Normal (NORMAL) 06/18/18 06:38 Anisocytosis (manual) Slight 06/18/18 06:38 PT 11.7 SECONDS (9.7-12.2) 06/16/18 06:24 INR 1.1 06/16/18 06:24 APTT 34 SECONDS (21-34) 06/16/18 06:24 Puncture Site Rb 06/16/18 06:25 pCO2 57 mm/Hg (35-45) H 06/16/18 06:25 pO2 105 mm/Hg (80-100) H 06/16/18 06:25 HCO3 28.9 mmol/L (21-28) H 06/16/18 06:25 ABG pH 7.36 (7.35-7.45) 06/16/18 06:25 ABG Total CO2 33.9 mmol/L (22-28) H 06/16/18 06:25 ABG O2 Saturation 99.1 % (95-98) H 06/16/18 06:25 ABG Base Excess 5.1 mmol/L (-2.0-3.0) H 06/16/18 06:25 Az Test Na 06/16/18 06:25 ABG Potassium 3.3 mmol/L (3.6-5.2) L 06/16/18 06:25 A-a O2 Difference 73.0 mm/Hg 06/16/18 06:25 Respiratory Index 0.7 06/16/18 06:25 Sodium 137.0 mmol/l (132-148) 06/16/18 06:25 Chloride 100.0 mmol/L (98-107) 06/16/18 06:25 Glucose 111 mg/dl (75-110) H 06/16/18 06:25 Lactate 0.7 mmol/L (0.7-2.1) 06/16/18 06:25 Vent Mode Pt on nebulizer tx 06/16/18 06:25 FiO2 35.0 % 06/16/18 06:25 Sodium 136 mmol/L (132-148) 06/18/18 06:38 Potassium 4.7 mmol/L (3.6-5.2) 06/18/18 06:38 Chloride 95 mmol/L (98-107) L 06/18/18 06:38 Carbon Dioxide 34 mmol/L (22-30) H 06/18/18 06:38 Anion Gap 12 (10-20) 06/18/18 06:38 BUN 22 mg/dL (9-20) H 06/18/18 06:38 Creatinine 0.7 mg/dL (0.8-1.5) L 06/18/18 06:38 Est GFR ( Amer) > 60 06/18/18 06:38 Est GFR (Non-Af Amer) > 60 06/18/18 06:38 POC Glucose (mg/dL) 106 mg/dL (65-110) 06/19/18 06:16 Random Glucose 122 mg/dL (75-110) H 06/18/18 06:38 Calcium 8.7 mg/dl (8.6-10.4) 06/18/18 06:38 Phosphorus 4.2 mg/dL (2.5-4.5) 06/18/18 06:38 Magnesium 2.0 mg/dL (1.6-2.3) 06/18/18 06:38 Total Bilirubin 0.5 mg/dL (0.2-1.3) 06/18/18 06:38 AST 28 U/L (17-59) 06/18/18 06:38 ALT 38 U/L (21-72) 06/18/18 06:38 Alkaline Phosphatase 106 U/L (38-126) 06/18/18 06:38 Troponin I < 0.0120 ng/mL (0.00-0.120) 06/16/18 16:46 NT-Pro-B Natriuret Pep 277 pg/mL (0-900) 06/16/18 06:24 Total Protein 6.3 g/dL (6.3-8.3) 06/18/18 06:38 Albumin 3.3 g/dL (3.5-5.0) L 06/18/18 06:38 Globulin 3.0 gm/dL (2.2-3.9) 06/18/18 06:38 Albumin/Globulin Ratio 1.1 (1.0-2.1) 06/18/18 06:38 Free T4 1.18 ng/dL (0.78-2.19) 06/17/18 10:38 TSH 3rd Generation 0.13 mIU/L (0.46-4.68) L 06/17/18 07:11 Arterial Blood Potassium 3.3 mmol/L (3.6-5.2) L 06/16/18 06:25 Urine Color Rosanna (YELLOW) 06/16/18 08:46 Urine Clarity Hazy (Clear) 06/16/18 08:46 Urine pH 5.0 (5.0-8.0) 06/16/18 08:46 Ur Specific [place] 1.023 (1.003-1.030) 06/16/18 08:46 Urine Protein 1+ mg/dL (NEGATIVE) H 06/16/18 08:46 Urine Glucose (UA) Normal mg/dL (Normal) 06/16/18 08:46 Urine Ketones Negative mg/dL (NEGATIVE) 06/16/18 08:46 Urine Blood Negative (NEGATIVE) 06/16/18 08:46 Urine Nitrate Negative (NEGATIVE) 06/16/18 08:46 Urine Bilirubin Negative (NEGATIVE) 06/16/18 08:46 Urine Urobilinogen 4.0 mg/dL (0.2-1.0) 06/16/18 08:46 Ur Leukocyte Esterase Neg Frances/uL (Negative) 06/16/18 08:46 Urine WBC (Auto) 2 /hpf (0-5) 06/16/18 08:46 Urine RBC (Auto) 5 /hpf (0-3) H 06/16/18 08:46 Ur Squamous Epith Cells 3 /hpf (0-5) 06/16/18 08:46 Calcium Oxalate Crystal Mod /hpf (<OCC) H 06/16/18 08:46 Urine Bacteria Rare (<OCC) 06/16/18 08:46 Urine Opiates Screen Positive (NEGATIVE) H 06/16/18 11:42 Urine Methadone Screen Positive (NEGATIVE) H 06/16/18 11:42 Ur Barbiturates Screen Negative (NEGATIVE) 06/16/18 11:42 Ur Phencyclidine Scrn Negative (NEGATIVE) 06/16/18 11:42 Ur Amphetamines Screen Negative (NEGATIVE) 06/16/18 11:42 U Benzodiazepines Scrn Negative (NEGATIVE) 06/16/18 11:42 U Oth Cocaine Metabols Positive (NEGATIVE) H 06/16/18 11:42 U Cannabinoids Screen Negative (NEGATIVE) 06/16/18 11:42 - Hospital Course Hospital Course: On admission: HPI: Patient is s 52 year old male with past medical history of asthma, HTN, Hepatitis C, and chronic leg swelling presents to ED complaining of worsening shortness of breath that began one day prior to arrival. Shortness of breath worsens with exertion and slightly improves with rest. Associated symptoms include worsening leg swelling for the past 2 days and intermittent non- radiating midsternal chest pain that worsens with deep breathing. Patient notes that he has a chronic dry cough. Denies fever, chills, diaphoresis, lightheadednes, nausea, vomiting, and abdominal pain. Hospital course: Patient was admitted for shortness of breath likely secondary to asthma/COPD exacerbation. He was treated with Duonebs, Solumedrol, Spiriva and Singulair with progressive improvement of symptoms. Since patient complained of chest pain , troponins were initially drawn which were negative. Patient's chest pain resolved as his symptoms of shortness of breath improved. Bilateral venous doppler studies were ordered for bilateral lower extremity edema, which were negative for DVT. Since patient has a history of IV heroin abuse and receiving treatment from [facility], patient was treated with his confirmed dose of Methadone 50mg. Patient's hypertension was controlled with Norvasc and HCTZ, however Coreg was held due to history of COPD and cocaine use. Patient was noted to have abnormal low TSH, with normal free T4 levels. On discharge, patient's pre 6 min walk oxygen saturation was 94%, and post oxygen saturation was 92%. He was able to speak in full sentences and did not feel short of breath or cough while walking. Patient was medically stable to be discharged. Imagin06/16/18 CXR: no active pulmonary disease 06/16/18 Bilateral venous dopplers: no evidence of deep or superficial vein thrombosis. normal valve function. Discharge summary: The following instructions were explained to patient and copy will need to be provided to patient upon discharge: 1). Schedule follow up with your Primary Care Physician Dr. Aleks Srinivasan to take place in the next 7 days. 2). Bring a copy of these instructions with you to your appointment with Dr. Aleks Srinivasan. 3). Through Dr. Aleks Srinivasan's office obtain referral to be seen by Ferry [employer] Dr. Sakina Womack with whom you should make an appointment to take place in the next 14 days. His office number is [phone]. Through Dr. Womack' s office you should have further management and evaluation of your COPD (likely Emphysema). 4). Through Dr. Aquiles Srinivasan's office you will also need to have blood work done in 4 weeks from today to recheck your thyroid hormone levels. Please discuss this with Dr. Srinivasan upon your follow up with him. 5). You were provided with a list of locations for Narcotics Anonymous. Please pick a location near you and go. It will help save your life. 6). Call to obtain help for your cigarette addiction. If you continue to smoke, your lungs will continue to worsen. 7). You were given Methadone 50 mg once a day while you were admitted to the hospital from 06/16/18 through 06/19/18. Please follow up with [facility] on for your next Methadone dose. Please bring a copy of these instructions with you to show [facility] that you were being given Methadone. 8) Please follow up with DAYDAY Stephens at [facility] for follow up on Hepatitis C. 9) The following prescriptions were given to you. Please have them filled at your pharmacy on your way home from the hospital. These are the only medications that you should be taking. Future prescriptions will need to be filled by your primary care physician: Norvasc 5 mg, 1 tablet by mouth 1 time per day (8AM), Dispense #30, NO refills HCTZ 25 mg, 1 tablet by mouth 1 time per day (2 PM), Dispense #30, NO refills Singulair 10 mg, 1 tablet by mouth 1 time per day (8 PM), Dispense #30, NO refills Spiriva 18 mcg, 2 inhalations by mouth of 1 capsule by handihaler device, Dispense #30, NO refills Albuterol 90 mcg, 2 inhalations by mouth every 6 hours ONLY as needed for sever SOB, Dispense #1, NO refills Prednisone 10 mg, 5 tablets by mouth at 8 AM on 06/20/18, 4 tablets by mouth at 8 AM on 06/21/18, 3 tablets by mouth at 8 AM on 06/22/18, 2 tablets by mouth at 8 AM on 06/23/18, 1 tablet by mouth at 8 AM on 06/24/18, Dispense #15, NO refills 10). Please take care of yourself. You are a good person. Believe in yourself. Be good to yourself. There is a lot of life out there and you have a lot to offer. Discharge Exam - Head Exam Head Exam: ATRAUMATIC, NORMOCEPHALIC - Eye Exam Eye Exam: EOMI, PERRL - ENT Exam ENT Exam: Mucous Membranes Moist - Respiratory Exam Respiratory Exam: Clear to PA & Lateral, NORMAL BREATHING PATTERN, UNREMARKABLE. absent: Rales, Rhonchi, Wheezes, Respiratory Distress, Stridor - Cardiovascular Exam Cardiovascular Exam: REGULAR RHYTHM, +S1, +S2. absent: Gallop, Rubs, Systolic Murmur - GI/Abdominal Exam GI & Abdominal Exam: Normal Bowel Sounds, Soft. absent: Distended, Firm, Guarding, Tenderness - Extremities Exam Extremities exam: normal capillary refill, pedal pulses present Additional comments: no calf tenderness, no pedal edema. - Neurological Exam Neurological exam: Alert, CN II-XII Intact, Oriented x3 - Psychiatric Exam Psychiatric exam: Normal Affect, Normal Mood - Skin Skin Exam: Dry, Intact, Warm Discharge Plan - Discharge Medications Prescriptions: Albuterol HFA [Ventolin HFA 90 mcg/actuation (8 g)] 2 puff IH [id number] PRN #1 inhaler PRN Reason: Shortness Of Breath amLODIPine [Norvasc] 5 mg PO DAILY #30 tab hydroCHLOROthiazide [Hydrodiuril] 25 mg PO DAILY #30 tab Montelukast [Singulair] 10 mg PO HS #30 tab Pantoprazole [Protonix EC Tab] 40 mg PO DAILY 15 Days #15 ect predniSONE [predniSONE Tab] See Taper PO DAILY #15 tab Tiotropium [Spiriva] 18 mcg INH RQ24 #1 inhaler Tiotropium Butler Inhaler [Spiriva Inhalation Handihaler Device] 1 inhaler INH DAILY #1 inhaler - Follow Up Plan Condition: STABLE Disposition: HOME/ ROUTINE Instructions: Heart Healthy Diet, Asthma, Adult (DC), Exacerbation of COPD (DC) , Albuterol, Amlodipine, Hydrochlorothiazide, Montelukast, Pantoprazole, Prednisone, Tiotropium Additional Instructions: The following instructions were explained to patient and copy will need to be provided to patient upon discharge: 1). Schedule follow up with your Primary Care Physician Dr. Aleks Srinivasan to take place in the next 7 days. 2). Bring a copy of these instructions with you to your appointment with Dr. Aleks Srinivasan. 3). Through Dr. Aleks Srinivasan's office obtain referral to be seen by Ferry Engineer Dr. Sakina Womack with whom you should make an appointment to take place in the next 14 days. His office number is [phone]. Through Dr. Womack' s office you should have further management and evaluation of your COPD (likely Emphysema). 4). Through Dr. Aquiles Srinivasan's office you will also need to have blood work done in 4 weeks from today to recheck your thyroid hormone levels. Please dicuss this with Dr. Srinivasan upon your follow up with him. 5). You were provided with a list of locations for Narcotics Anonymous. Please pick a location near you and go. It will help save your life. 6). Call to obtain help for your cigarette addiction. If you continue to smoke, your lungs will continue to worsen. 7). You were given Methadone 50 mg once a day while you were admitted to the hospital from 06/16/18 through 06/19/18. Please follow up with [facility] on for your next Methadone dose. Please bring a copy of these instructions with you to show [facility] that you were being given Methadone. 8) Please follow up with DAYDAY Stephens at [facility] for follow up on Hepatitis C. 9) The following prescriptions were given to you. Please have them filled at your pharmacy on your way home from the hospital. These are the only medications that you should be taking. Future prescriptions will need to be filled by your primary care physician: Norvasc 5 mg, 1 tablet by mouth 1 time per day (8AM), Dispense #30, NO refills HCTZ 25 mg, 1 tablet by mouth 1 time per day (2 PM), Dispense #30, NO refills Singulair 10 mg, 1 tablet by mouth 1 time per day (8 PM), Dispense #30, NO refills Spiriva 18 mcg, 2 inhalations by mouth of 1 capsule by handihaler device, Dispense #30, NO refills Albuterol 90 mcg, 2 inhalations by mouth every 6 hours ONLY as needed for sever SOB, Dispense #1, NO refills Prednisone 10 mg, 5 tablets by mouth at 8 AM on 06/20/18, 4 tablets by mouth at 8 AM on 06/21/18, 3 tablets by mouth at 8 AM on 06/22/18, 2 tablets by mouth at 8 AM on 06/23/18, 1 tablet by mouth at 8 AM on 06/24/18, Dispense #15, NO refills 10). Please take care of yourself. You are a good person. Believe in yourself. Be good to yourself. There is a lot of life out there and you have a lot to offer. Referrals: Norbert Womack MD [Staff Provider] -
[2018-06-19 09:14] LABS: HEMOGLOBIN 15.3 g/dL (12.0-18.0); LYMPH # 0.5 K/uL (1.0-4.3); LYMPH % 3.6 % (20.0-40.0); MEAN CELL VOLUME 85.1 fL (80.0-94.0); MEAN CORPUSCULAR HEMOGLOBIN 28.1 pg (27.0-31.0); MEAN PLATELET VOLUME 7.9 fL (7.2-11.7); MONO # 0.3 K/uL (0.0-0.8); MONO % 2.3 % (0.0-10.0); NEUT # 12.2 K/uL (1.8-7.0); NEUT % 94.1 % (50.0-75.0); NRBC % 0.4 % (0.0-2.0); PLATELET COUNT 191 K/uL (130-400); RBC 5.44 Mil/uL (4.40-5.90); RED CELL DISTRIBUTION WIDTH 17.5 % (11.5-14.5); WHITE BLOOD COUNT 12.9 K/uL (4.8-10.8)
[2018-06-19 09:51] LABS: LYMPHOCYTE 4 % (20-40); MONOCYTE 1 % (0-10); NEUTROPHIL 95 % (50-75); PLATELET ESTIMATE NORMAL (NORMAL); TOTAL CELLS COUNTED 100
[2018-06-19] MEDS: Enoxaparin 40 mg Syringe SC SCH (10:30)
[2018-06-19] MEDS: Pantoprazole 40 mg EC Tab PO SCH (10:34)
[2018-06-19 11:29] LABS: ALB/GLOB RATIO 1.2 (1.0-2.1); ALBUMIN 3.9 g/dL (3.5-5.0); ALT/SGPT 38 U/L (21-72); AST/SGOT 25 U/L (17-59); BLOOD UREA NITROGEN 20 mg/dL (9-20); CALCIUM 9.1 mg/dl (8.6-10.4); GFR AFRICAN-AMERICAN > 60; GFR NON-AFRICAN AMERICAN > 60
== END 2018-06-19 14:06 | disposition home or self-care (01) ==
LOC: C.ER 05:52 → C.6T 09:52
PROVIDERS: ADMIT Family Medicine; ATTEND Family Medicine
DX: J44.1 Chronic obstructive pulmonary disease with (acute) exacerbation (principal); J45.901 Unspecified asthma with (acute) exacerbation; I10 Essential (primary) hypertension; F17.210 Nicotine dependence, cigarettes, uncomplicated; F14.10 Cocaine abuse, uncomplicated; B19.20 Unspecified viral hepatitis C without hepatic coma
CPT/HCPCS: 36415; 71045; 80053; 80324; 80345; 80346; 80349; 80353; 80358; 80361; 81001; 82803; 82948; 83735; 83880; 83992; 84100; 84439; 84443; 84484; 85025; 85610; 85730; 87040; 93005; 93970; 94150; 94640; 96374; 99285; G0378; J1650; J2920; J2930